=== PATIENT | female | born 1980 | race Caucasian/White ===

== ENCOUNTER 2018-01-22 08:53 | Emergency (ER) | payer OTHER, MEDICAID, SELFPAY ==
[2018-01-22 09:20] VITALS: BP 134/99; PULSE 93; RESP 18; TEMP 36.8; O2SAT 100
--- NOTE | 2018-01-22 10:13 | ED.ALLEREA ---
HPI - Allergic Reaction General Chief complaint: Allergic Reaction Stated complaint: redness on face, inflammation, lump on neck Time Seen by Provider: 01/22/18 08:56 Source: patient Mode of arrival: ambulatory Limitations: no limitations History of Present Illness HPI narrative: Patient is a 29-year-old female presenting with some rash around both eyes. She thought it was a burn from 2 weeks ago which she said actually cleared up completely. She is outside in the sun wearing glasses next day she noticed some red flaky swelling around both of her eyes. However after a cleared started coming back 2 days ago. She says it is very itchy she has been putting a and D ointment on there that the only thing that seems to help it. She starting to feel a some difficulty swallowing but does not feel like her tongue or lips are swollen or tingling. She has taken Benadryl twice already today no other rashes no prior allergic reactions. She denies any new medications of a size that she has been putting on her face no new soaps. She did go into her old house yesterday and cleaning out. Related Data Home Medications Medication Instructions Recorded Confirmed naproxen sodium [Aleve] 220 mg PO TID #0 10/06/16 01/22/18 Previous Rx's Medication Instructions Recorded norethindrone (contraceptive) 0.35 mg PO QDAY #1 pac 10/26/17 prednisone 50 mg PO DAILY #4 tab 01/22/18 Allergies Allergy/AdvReac Type Severity Reaction Status Date / Time No Known Drug Allergies Allergy Verified 01/22/18 10:30 Review of Systems Review of Systems GENERAL: Denies chills, fatigue, malaise, fever, sweats, travel HEENT: Denies sinus pain, ear pain, sore throat, difficulty swallowing, neck pain RESPIRATORY: Denies dyspnea, cough, wheezing, hemoptysis, sputum. CARDIOVASCULAR: Denies chest pain, palpitations, orthopnea, edema GASTROINTESTINAL: Denies nausea, vomiting, abdominal pain, diarrhea, constipation, melena. : Denies dysuria, frequency, incontinence, hematuria, urinary retention, flank pain. MUSCULOSKELETAL: Denies weakness, joint pain, or bony pain SKIN:rash around eyes only NEUROLOGIC: Denies weakness, dizziness, headache, numbness, change in speech, confusion PSYCHIATRIC: No concerning psychosocial issues. 12 point review of systems is negative except for those stated above and HPI PFSH Social History Smoking Status: Current every day smoker Exam Initial Vital Signs Initial Vital Signs: Vital Signs Temperature 98.3 F 01/22/18 09:20 Pulse Rate 93 H 01/22/18 09:20 Respiratory Rate 18 01/22/18 09:20 Blood Pressure 134/99 H 01/22/18 09:20 Pulse Oximetry 100 01/22/18 09:20 GENERAL: Well-appearing, well-nourished and in no acute distress. HEENT: Head atraumatic,EOMI, pupils reactive, conjunctivae are clear CARDIOVASCULAR: Regular rate and rhythm without murmurs, rubs or gallops. RESPIRATORY: Breath sounds equal bilaterally, no wheezes rales or rhonchi. ABDOMEN: Soft, nontender. Normoactive bowel sounds all 4 quadrants. No guarding or rebound. EXTREMITIES: Normal range of motion, no clubbing or edema. Neurovascularly intact NEUROLOGICAL: Alert and oriented x4.Normal gait and speech. SKIN: Dry erythematous scaly lesions on the bilateral periorbital areas. No other rashes no petechiae no urticaria Course Orders Ordered: Discontinued Medications Prednisone (Deltasone) 60 mg PO NOW ONE Stop: 01/22/18 10:19 Last Admin: 01/22/18 10:29 Dose: 60 mg Vital Signs - 8 hr 01/22/18 09:20 Temperature 98.3 F Pulse Rate 93 H Respiratory Rate 18 Blood Pressure 134/99 H Pulse Oximetry 100 Discharge Plan Departure Patient Disposition: Home, Self-Care Clinical Impression: Allergic reaction Discharge Date/Time: 01/22/18 10:57 Instructions: DI for Eye Allergic Reaction, DI for General Allergic Reactions Activity Restrictions/Additional Instructions: *You have been diagnosed with allergic reaction *What to do: You may require further allergy testing if this is recurring *Continue to take medications as directed At your request you're medications have been fax[facility] in [place] Prednisone once a day 4 more days, start tomorrow -[id number] allergy medicine Claritin or Radha take as directed -may try Aquaphor ointment around eyes *Follow up with your primary care provider in 2-3 days *Return to ER if you should have any new, worsening or concerning symptoms Prescriptions: New prednisone 50 mg tablet 50 mg PO DAILY Qty: 4 RF: 0 No Action naproxen sodium [Aleve] 220 MG capsule 220 mg PO TID Qty: 0 RF: 0 norethindrone (contraceptive) 0.35 MG tablet 0.35 mg PO QDAY Qty: 1 RF: 11
[2018-01-22] MEDS: predniSONE 20 MG TABLET 60 MG PO (10:29)
[2018-01-22 10:56] VITALS: BP 132/72; PULSE 70; RESP 12; O2SAT 100
== END 2018-01-22 10:57 | disposition home or self-care (01) ==
PROVIDERS: Emergency Provider Emergency Medicine
DX: T78.40XA Allergy, unspecified, initial encounter (principal)
CPT/HCPCS: 99282; 99283

== ENCOUNTER → 2018-02-15 17:16 | Outpatient (CLI) | payer OTHER, MEDICAID, SELFPAY ==
[2018-02-15 17:55] LABS: Add Manual Diff / Slide Review NO; Basophils Percent Auto 1.6 % (0-2); Eosinophils Percent Auto 4.9 % (2-4); Hematocrit 38.1 % (36-46); Lymphocytes Percent Auto 37.5 % (25-40); Mean Corpuscular Hemoglobin 32.7 PG (26-34); Mean Corpuscular Volume 96.2 fL (80-100); Monocytes Percent Auto 11.6 % (3-14); Neutrophils Absolute Auto 2200 /uL (3000-5900); Neutrophils Percent Auto 44.4 % (50-75); Platelet Count 274 X10^3/uL (150-400); Red Blood Cell Count 3.96 X10^6/uL (4.0-5.2); Red Cell Distribution Width 12.5 % (11.6-14.8); White Blood Cell Count 5.1 X10^3/uL (4.5-11.0)
[2018-02-15 18:15] LABS: Alanine Aminotransferase 38 IU/L (9-52); Albumin 4.2 g/dL (3.5-5.0); Albumin Globulin Ratio 1.6 (1.0-2.8); Alkaline Phosphatase 105 U/L (38-126); Aspartate Aminotransferase 37 IU/L (14-36); Bilirubin Total 0.4 mg/dL (0.2-1.3); Blood Urea Nitrogen 21 mg/dL (7-17); C-Reactive Protein Quant < 0.5 mg/dL (<1.0); Calcium 9.1 mg/dL (8.4-10.2); Carbon Dioxide 26 mmol/L (22-32); Chloride 104 mmol/L (98-107); Estimated Glomerular Filt Rate > 60.0 mL/min (>60); Globulin 2.7 g/dL (1.7-4.1); Glucose 111 mg/dL (70-100); HEMOLYSIS < 15 (0-50); Potassium 3.8 mmol/L (3.4-5.1); Sodium 139 mmol/L (137-145); Total Protein 6.9 g/dL (6.3-8.2)
[2018-02-15 18:54] LABS: HIV 1 and 2 Antibody NEGATIVE (NEGATIVE)
[2018-02-15 18:56] LABS: Erythrocyte Sedimentation Rate 6 MM/HR (0-20)
[2018-02-21 08:24] LABS: Rapid Plasma Reagin NON-REACTIVE
[2018-02-21 18:39] LABS: ANA Screen, IFA Negative (Negative)
== END ==
PROVIDERS: Visit Provider Family Medicine
DX: A46 Erysipelas (principal)
CPT/HCPCS: 36415; 80053; 85025; 85651; 86038; 86140; 86592; 86703

== ENCOUNTER 2018-09-20 15:42 | Emergency (ER) | payer OTHER, MEDICAID, SELFPAY ==
[2018-09-20 15:49] VITALS: BP 127/84; PULSE 98; RESP 22; TEMP 36.4; O2SAT 99
== END 2018-09-20 16:33 | disposition left against medical advice (07) ==
PROVIDERS: Emergency Provider Emergency Medicine
DX: R10.9 Unspecified abdominal pain (principal)
CPT/HCPCS: 99281

== ENCOUNTER 2019-09-28 11:34 | Emergency (ER) | payer OTHER, MEDICAID, SELFPAY ==
--- NOTE | 2019-09-28 11:44 | PC.NURSE ---
Pt visualized upon entry to ED. No acute distress. Called for formal triage and pt had left. Registration states they left to make important phone calls.
--- NOTE | 2019-09-30 08:31 | ED.ABDPAIN ---
HPI - Abdominal Pain General Stated Complaint: surgery on left hand yesterday,stitches popped History of Present Illness HPI narrative: The patient was not seen by myself or evaluated. The patient left without treatment. Related Data Home Medications Medication Instructions Recorded Confirmed naproxen sodium [Aleve] 220 mg PO TID #0 10/06/16 01/22/18 Previous Rx's Medication Instructions Recorded norethindrone (contraceptive) 0.35 mg PO QDAY #1 pac 10/26/17 prednisone 50 mg PO DAILY #4 tab 01/22/18 Allergies Allergy/AdvReac Type Severity Reaction Status Date / Time hydrocodone Allergy Verified 09/28/19 17:25 Penicillins Allergy Verified 09/28/19 17:25 Patient History Social History Smoking Status: Current every day smoker Smoking Status: Current every day smoker alcohol intake frequency: a few times a month Substance Use Type: marijuana Discharge Plan Departure Patient Disposition: Left Without Being Seen Clinical Impression: Patient left before triage assessment Discharge Date/Time: 09/28/19 11:46
== END 2019-09-28 11:46 | disposition left against medical advice (07) ==
PROVIDERS: Emergency Provider Emergency Medicine

== ENCOUNTER 2019-09-28 17:15 | Emergency (ER) | payer OTHER, MEDICAID, SELFPAY ==
[2019-09-28 17:25] VITALS: BP 118/76; PULSE 98; RESP 16; TEMP 36.6; O2SAT 98; BMI 17.6
--- NOTE | 2019-09-28 18:56 | ED.GENADULT ---
HPI - General Adult General Chief complaint: Extremity Injury, Upper Stated complaint: left hand surgery, thinks popped stitch Time Seen by Provider: 09/28/19 18:37 Source: patient Mode of arrival: Ambulatory Limitations: no limitations History of Present Illness HPI narrative: Patient is a 39-year-old female. Underwent a left finger surgery yesterday at another facility. She stated this is for a broken finger. She stated that she felt like her pain was getting worse and she felt that potentially she ?popped? a stitch in her finger. She tried to take the splint off on her own but then wrapped it up again with the Andres bandage. She did not take completely off. She also states that since her surgery she has gotten the splint is dirty and wet. She did not call her orthopedic provider prior to coming the emergency department. Related Data Home Medications Medication Instructions Recorded Confirmed naproxen sodium [Aleve] 220 mg PO TID #0 10/06/16 01/22/18 Previous Rx's Medication Instructions Recorded norethindrone (contraceptive) 0.35 mg PO QDAY #1 pac 10/26/17 prednisone 50 mg PO DAILY #4 tab 01/22/18 Allergies Allergy/AdvReac Type Severity Reaction Status Date / Time hydrocodone Allergy Verified 09/28/19 17:25 Penicillins Allergy Verified 09/28/19 17:25 Review of Systems Musculoskeletal Comments: Left hand/finger pain Neurologic Comments: No change in neurologic status left hand Hematologic/Lymphatic Hematologic/Lymphatic: Denies easy bleeding and Denies easy bruising Patient History Medical History ENCOUNTER FOR INSERTION OF INTRAUTERINE CONTRACEPTIVE DEVICE (Inactive) 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) Social History Smoking Status: Current every day smoker Smoking Status: Current every day smoker alcohol intake frequency: a few times a month Substance Use Type: marijuana Exam Initial Vital Signs Initial Vital Signs: Vital Signs Temperature 97.9 F 09/28/19 17:25 Pulse Rate 98 H 09/28/19 17:25 Respiratory Rate 16 09/28/19 17:25 Blood Pressure 118/76 09/28/19 17:25 Pulse Oximetry 98 09/28/19 17:25 Const General: cooperative, comfortable and well developed Limitations: altered mental status Cardio Pulses: radial pulses present on the left Skin Other: Patient with multiple stitches on the left middle finger consistent with her stated history. There is no surrounding erythema. All the stitches seem to be in place. There is no drainage. Neuro Sensory Exam: no sensory deficits noted Extrem Other: Stitches left middle finger with some tenderness palpation Psych Appearance: grossly normal and well kempt Procedures Orthopedic Splinting/Casting Injury #1: Side: left Upper Extremity Injury Location: hand Upper Extremity Immobilizer: volar splint and Andres wrap Post splinting neuro exam: intact Post splinting vascular exam: intact Placed by: Provider Course Vital Signs Vital signs: Vital Signs - 8 hr 09/28/19 17:25 Temperature 97.9 F Pulse Rate 98 H Respiratory Rate 16 Blood Pressure 118/76 Pulse Oximetry 98 Medical Decision Making MDM Narrative Medical decision making narrative: The splint upon arrival was placed very poorly. The Andres bandage was half way hanging off. It was soiled. I did take the splint all the way off. The incision underneath looks well. Does not appear to have any signs of infection. There are no issues with the stitches. I replaced the cast padding under the bandage. I then used the same splint that the patient came in with to support the finger. Was covered with a new Andres bandage. Patient was instructed to follow all of the postoperative instructions given to her by the operative surgeon. She was also instructed to call the surgeon on Tuesday for follow-up. She was given strict return precautions and follow-up instructions. She expressed understanding and agreement. Discharge Plan Departure Patient Disposition: Home Clinical Impression: Post-operative complication Qualifiers: Surgical complication system/body Area: [id number] Encounter type: initial encounter Discharge Date/Time: 09/28/19 19:22 Instructions: How to Use a Sling, How to Take Care of Your Splint Activity Restrictions/Additional Instructions: The splint needs to stay on anti needs to stay clean and stay dry. Continue all of the postoperative instructions given to you by the orthopedic doctor who did your surgery. Contact him on Tuesday morning for a follow-up. Return to the emergency department for any new or worsening symptoms Prescriptions: No Action naproxen sodium [Aleve] 220 MG capsule 220 mg PO TID Qty: 0 RF: 0 norethindrone (contraceptive) 0.35 MG tablet 0.35 mg PO QDAY Qty: 1 RF: 11 prednisone 50 mg tablet 50 mg PO DAILY Qty: 4 RF: 0
--- NOTE | 2019-09-28 19:21 | PC.NURSE ---
pt c/o left surgical site irritation, possibly popped a stitch.
== END 2019-09-28 19:22 | disposition home or self-care (01) ==
PROVIDERS: Emergency Provider Emergency Medicine
DX: T81.89XA Other complications of procedures, not elsewhere classified, initial encounter (principal)
CPT/HCPCS: 99281

== ENCOUNTER 2020-02-28 18:51 | Emergency (ER) | payer OTHER, MEDICAID, SELFPAY ==
[2020-02-28 19:01] VITALS: BP 126/92; PULSE 106; RESP 16; TEMP 36.6; O2SAT 100; BMI 16.8
--- NOTE | 2020-02-28 19:04 | PC.NURSE ---
During triage when asked if patient feels safe in home environment patient shook her head no. Patient unwilling to provide further information. When asked if patient would like help, patient declined. Patient affirms no thoughts of hurting self or others.
--- NOTE | 2020-02-28 23:00 | ED_ITS ---
HPI - Dental/Oral General Chief complaint: Dental/Oral Stated complaint: broke two teeth, thinks she has an infection Time Seen by Provider: 02/28/20 18:55 Source: patient Mode of arrival: Ambulatory Limitations: no limitations History of Present Illness HPI Narrative: 39-year-old female smoker presents with a chief complaint of some right lower dental pain with minimal lower jaw swelling or the course of the past few days. She denies any fever, chills nor nausea or vomiting. SHe is not dizzy, weak or lightheaded. She has no known exposure to persons known to have COVID MD Complaint: tooth pain Location: Tooth # Teeth map: 1. Duration: constant Severity: moderate Relieving factors: nothing Exacerbating factors: chewing Context: history of dental caries Treatment prior to arrival: none Related Data Home Medications Medication Instructions Recorded Confirmed naproxen sodium [Aleve] 220 mg PO TID #0 10/06/16 01/22/18 Previous Rx's Medication Instructions Recorded norethindrone (contraceptive) 0.35 mg PO QDAY #1 pac 10/26/17 prednisone 50 mg PO DAILY #4 tab 01/22/18 clindamycin HCl 300 mg PO Q8H 7 Days #21 cap 02/28/20 ibuprofen 600 mg PO TID PRN #10 tab 02/28/20 Allergies Allergy/AdvReac Type Severity Reaction Status Date / Time hydrocodone Allergy Verified 09/28/19 17:25 Penicillins Allergy Verified 09/28/19 17:25 Review of Systems Constitutional Constitutional: Denies chills, Denies fatigue, Denies fever(s), Denies frequent falls, Denies lethargy and Denies weakness Eyes Eyes: Denies change in vision, Denies eye discharge, Denies irritation and D enies loss of vision ENT Ears, Nose, Mouth, and Throat: Denies change in voice, Denies dizziness, Denies neck pain, Denies sore throat and Denies throat swelling Cardiovascular Cardiovascular: Denies chest pain, Denies irregular heart rhythm, Denies lightheadedness, Denies palpitations, Denies dyspnea, Denies dyspnea on exertion and Denies orthopnea Respiratory Respiratory: Denies cough, Denies dyspnea, Denies dyspnea on exertion and Denies wheezing Gastrointestinal Gastrointestinal: Denies abdominal pain, Denies change in bowel habits, Denies diarrhea, Denies nausea and Denies vomiting Musculoskeletal Musculoskeletal: Denies neck pain and Denies numbness Integumentary/Breasts Skin/Breast: Denies pruritus, Denies erythema, Denies rash and Denies wounds Neurologic Neurologic: Denies behavioral changes, Denies confusion, Denies dizziness, Denies frequent falls, Denies loss of vision, Denies numbness and Denies weaknes s Psychiatric Psychiatric: Denies anxiety, Denies behavioral changes, Denies confusion, Denies depression, Denies homicidal ideation and Denies suicidal ideation Endocrine Endocrine: Denies fatigue, Denies flushing and Denies palpitations Hematologic/Lymphatic Hematologic/Lymphatic: Denies easy bruising Allergic/Immunologic Allergic/Immunologic: Denies urticaria, Denies throat swelling and Denies wheezing Patient History Medical History (Updated 02/28/20 @ 19:05 by Tha Courtney DO) ENCOUNTER FOR INSERTION OF INTRAUTERINE CONTRACEPTIVE DEVICE (Inactive) 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 Extraoccular muscles are intact bilaterally. There is no subconjunctival hemorrhage or exudate. ENT: Poor dentition throughout. Mild Right lower jaw swelling CHEST: Lungs are clear to auscultation bilaterally and free of wheezes, rales, or rhonchi. Heart rate is regular rhythm, there are no murmurs, clicks, rubs, or gallops. There is no chest wall tenderness. ABD: Abdomen is soft and nontender. There is no guarding or rebound. Bowel sounds are normal in all 4 quadrants. There is no mass or organomegaly. EXT: Full painless ROM of all extremities with no loss of sensation or strength. SKIN: Warm, pink, and dry. No erythema or rash Initial Vital Signs Initial Vital Signs: Vital Signs Temperature 97.8 F 02/28/20 19: Pulse Rate 106 H 02/28/20 19:01 Respiratory Rate 16 02/28/20 19: Blood Pressure 126/92 H 02/28/20 19:01 Pulse Oximetry 100 02/28/20 19:01 Course Vital Signs Vital signs: Vital Signs - 8 hr 02/28/20 19:01 Temperature 97.8 F Pulse Rate 106 H Respiratory Rate 16 Blood Pressure 126/92 H Pulse Oximetry 100 Discharge Plan Departure Patient Disposition: Home Clinical Impression: Dental caries, Toothache, Dental abscess Discharge Date/Time: 02/28/20 19:39 Instructions: Tooth Abscess, DI for Dental Pain Activity Restrictions/Additional Instructions: *You have been diagnosed with [dental pain likely from early abscess] *What to do: *Take medications as directed: Pres[facility] transmitted to [facility] *Follow up with your primary care provider in 2-3 days, call for an appointment. Let them know you were seen in the Emergency Department and that we ask that you be seen in follow up *Return to ER if you should have any new, worsening or concerning symptoms Prescriptions: New clindamycin HCl 300 mg capsule 300 mg PO Q8H 7 Days Qty: 21 RF: 0 ibuprofen 600 mg tablet 600 mg PO TID PRN (Reason: pain) Qty: 10 RF: 0 No Action naproxen sodium [Aleve] 220 MG capsule 220 mg PO TID Qty: 0 RF: 0 norethindrone (contraceptive) 0.35 MG tablet 0.35 mg PO QDAY Qty: 1 RF: 11 prednisone 50 mg tablet 50 mg PO DAILY Qty: 4 RF: 0
== END 2020-02-28 19:39 | disposition home or self-care (01) ==
PROVIDERS: Emergency Provider Emergency Medicine
DX: K04.7 Periapical abscess without sinus (principal); K02.9 Dental caries, unspecified
CPT/HCPCS: 99281

== ENCOUNTER 2020-06-09 18:17 | Emergency (ER) | payer OTHER, MEDICAID, SELFPAY ==
[2020-06-09 18:29] VITALS: BP 149/96; PULSE 105; RESP 16; TEMP 36.8; O2SAT 100; BMI 19.1
--- NOTE | 2020-06-09 18:39 | ED_ITS ---
HPI - Dental/Oral General Chief complaint: Dental/Oral Stated complaint: TOOTH INFECTION RIGHT SIDE OF MOUTH Time Seen by Provider: 06/09/20 18:21 Source: patient Mode of arrival: Ambulatory Limitations: no limitations History of Present Illness HPI Narrative: 40F former smoker with history of dental troubles presents with the chief complaint of dental pain and swelling on the right upper side. She broke the tooth months ago and thinks she broke another piece off recently. She has had some mild facial swelling and thinks she's had some foul tasting drainage. She denies fever or chills. She denies any difficulty swallowing or recent injury. MD Complaint: tooth injury Teeth map: 1. Onset (ago): day(s) Duration: constant Severity: moderate Exacerbating factors: chewing Context: history of dental caries Associated symptoms: gum swelling Treatment prior to arrival: topical analgesic Related Data Previous Rx's Medication Instructions Recorded ibuprofen 600 mg PO TID PRN #10 tab 02/28/20 amoxicillin-pot clavulanate 1 tab PO BID #20 tab 06/09/20 [Augmentin] Allergies Allergy/AdvReac Type Severity Reaction Status Date / Time hydrocodone Allergy Verified 06/09/20 18:28 Penicillins Allergy Verified 06/09/20 18:28 Review of Systems Constitutional Constitutional: Denies chills, Denies fatigue, Denies fever(s), Denies frequent falls, Denies lethargy and Denies weakness Eyes Eyes: Denies change in vision, Denies eye discharge, Denies irritation and Denies loss of vision ENT Ears, Nose, Mouth, and Throat: Denies change in voice, Reports dental pain, Denies dizziness, Denies neck pain, Denies sore throat and Denies throat swelling Cardiovascular Cardiovascular: Denies chest pain, Denies irregular heart rhythm, Denies lightheadedness, Denies palpitations, Denies dyspnea, Denies dyspnea on exertion and Denies orthopnea Respiratory Respiratory: Denies cough, Denies dyspnea, Denies dyspnea on exertion and Denies wheezing Gastrointestinal Gastrointestinal: Denies abdominal pain, Denies change in bowel habits, Denies diarrhea, Denies nausea and Denies vomiting Musculoskeletal Musculoskeletal: Denies neck pain and Denies numbness Integumentary/Breasts Skin/Breast: Denies pruritus, Denies erythema, Denies rash and Denies wounds Neurologic Neurologic: Denies behavioral changes, Denies confusion, Denies dizziness, Denies frequent falls, Denies loss of vision, Denies numbness and Denies weakness Psychiatric Psychiatric: Denies anxiety, Denies behavioral changes, Denies confusion, Denies depression, Denies homicidal ideation and Denies suicidal ideation Endocrine Endocrine: Denies fatigue, Denies flushing and Denies palpitations Hematologic/Lymphatic Hematologic/Lymphatic: Denies easy bruising Allergic/Immunologic Allergic/Immunologic: Denies urticaria, Denies throat swelling and Denies wheezing Patient History Medical History ENCOUNTER FOR INSERTION OF INTRAUTERINE CONTRACEPTIVE DEVICE High risk HPV infection Psoriasis Social History Smoking Status: Former smoker Smoking Status: Former smoker tobacco type: vaping alcohol intake frequency: 3 or more drinks per day Substance Use Type: marijuana Exam Narrative Exam Narrative: GEN: AOx3 and in mild distress EYES: Pupils are equal, round, and reactive to light and accommodation. Extraoccular muscles are intact bilaterally. There is no subconjunctival hemorrhage or exudate. DENTAL: no significant swelling, poor dentition throughout. Mild edema adjacent to tooth #3, no fluctuance or obvious drainage. CHEST: Lungs are clear to auscultation bilaterally and free of wheezes, rales, or rhonchi. Heart rate is regular rhythm, there are no murmurs, clicks, rubs, or gallops. There is no chest wall tenderness. ABD: Abdomen is soft and nontender. There is no guarding or rebound. Bowel sounds are normal in all 4 quadrants. There is no mass or organomegaly. EXT: Full painless ROM of all extremities with no loss of sensation or strength. SKIN: Warm, pink, and dry. No erythema or rash Initial Vital Signs Initial Vital Signs: Vital Signs Temperature 98.2 F 06/09/20 18:29 Pulse Rate 105 H 06/09/20 18:29 Respiratory Rate 16 06/09/20 18:29 Blood Pressure 149/96 H 06/09/20 18:29 Pulse Oximetry 100 06/09/20 18:29 Course Vital Signs Vital signs: Vital Signs - 8 hr 06/09/20 18:29 06/09/20 19:14 Temperature 98.2 F Pulse Rate 105 H 61 Respiratory Rate 16 14 Blood Pressure 149/96 H 149/86 H Pulse Oximetry 100 99 Discharge Plan Departure Patient Disposition: Home Clinical Impression: Abscess, dental Instructions: Tooth Abscess Activity Restrictions/Additional Instructions: *You have been diagnosed with [dental pain with likely spontaneous draining abscess] *What to do: *Take medications as directed: Prescription electronically transmitted to [facility] * it is very important that you establish with a dentist as they are the only specialist that can provide definitive care *Return to ER if you should have any new, worsening or concerning symptoms, such as [significant facial swelling, trouble swallowing or other bothersome symptoms] Prescriptions: New amoxicillin-pot clavulanate [Augmentin] 875-125 mg tablet 1 tab PO BID Qty: 20 RF: 0 No Action ibuprofen 600 mg tablet 600 mg PO TID PRN (Reason: pain) Qty: 10 RF: 0 Referrals: Uday Willoughby MD [Primary Care Provider] -
[2020-06-09 19:14] VITALS: BP 149/86; PULSE 61; RESP 14; O2SAT 99
== END 2020-06-09 19:15 | disposition home or self-care (01) ==
PROVIDERS: Emergency Provider Emergency Medicine; PCP Student in an Organized Health Care Education/Training Program
DX: K04.7 Periapical abscess without sinus (principal)
CPT/HCPCS: 99281

== ENCOUNTER 2021-06-18 21:27 | Emergency (ER) | payer OTHER, MEDICAID, SELFPAY ==
[2021-06-18 21:45] VITALS: BP 167/112; PULSE 82; RESP 16; TEMP 36.7; O2SAT 99; BMI 17.7
--- NOTE | 2021-06-18 21:49 | ED_ITS ---
HPI - Fever General Chief Complaint: Fever Stated Complaint: covid exposure - not vaccinated Time Seen by Provider: 06/18/21 21:38 Source: patient Mode of arrival: Ambulatory Limitations: no limitations History of Present Illness HPI Narrative: 41-year-old female smoker without any chronic medical history presents with a chief complaint of various upper respiratory symptoms and subjective fever. She has had some runny nose and sneezing as well as sore throat and a dry hacking cough. She denies any chest pain or significant shortness of breath. She denies any abdominal pain, nausea, vomiting or diarrhea. She denies dysuria, frequency or urgency. She states that she was exposed to persons with known COVID at some point in the past 2 weeks and her symptoms started 2-3 days ago. Related Data Previous Rx's Medication Instructions Recorded ibuprofen 600 mg tablet 600 mg PO TID PRN #10 tab 02/28/20 amoxicillin 875 mg-potassium 1 tab PO BID #20 tab 06/09/20 clavulanate 125 mg tablet (Augmentin) Allergies Allergy/AdvReac Type Severity Reaction Status Date / Time hydrocodone Allergy Verified 06/09/20 18:28 Penicillins Allergy Verified 06/09/20 18:28 Review of Systems Review of Systems Narrative: GENERAL: See HPI HEENT: See HPI RESPIRATORY: See HPI CARDIOVASCULAR: Denies chest pain, palpitations, orthopnea, edema, GASTROINTESTINAL: See HPI : Denies dysuria, frequency, incontinence, hematuria, urinary retention. MUSCULOSKELETAL: denies weakness, joint pain, or bony pain SKIN: Denies rash, skin lesions, or other NEUROLOGIC: Denies weakness, headache, numbness, change in speech, confusion, seizures, incoordination. PSYCHIATRIC: No concerning psychosocial issues. 12 point review of systems is negative except for those stated above Patient History Medical History ENCOUNTER FOR INSERTION OF INTRAUTERINE CONTRACEPTIVE DEVICE High risk HPV infection Psoriasis Social History Smoking Status: Current some day smoker Smoking Status: Current some day smoker tobacco type: vaping alcohol intake frequency: 3 or more drinks per day Substance Use Type: marijuana Exam Narrative Exam Narrative: GENERAL: [41 year old patient appears stated age. Well-developed patient, in mild distress. HEAD: Atraumatic. Normocephalic. EYES: Pupils equal round and reactive. Extraocular motions intact. No scleral icterus. No injection or drainage. ENT: Nose without bleeding, purulent drainage. Throat without erythema, tonsillar hypertrophy or exudate. Airway patent. NECK: Trachea midline. Non tender CARDIOVASCULAR: Regular rate and rhythm without murmurs, gallops, or rubs. RESPIRATORY: Clear to auscultation. Breath sounds equal bilaterally. No wheezes, rales, or rhonchi. GASTROINTESTINAL: Abdomen soft, non-tender, nondistended. EXTREMITIES: No edema or joint tenderness. BACK: Nontender without deformity or crepitance. No flank tenderness. NEURO: AOx3. SKIN: No rash or erythema of visible areas Initial Vital Signs Initial Vital Signs: Vital Signs Temperature 98.1 F 06/18/21 21:45 Pulse Rate 82 06/18/21 21:45 Respiratory Rate 16 06/18/21 21:45 Blood Pressure 167/112 H 06/18/21 21:45 Pulse Oximetry 99 06/18/21 21:45 Course Orders Ordered: ED Orders 06/18/21 21:40 COVID19 -Nasal swab/Pre-Proc Stat Vital Signs Vital signs: Vital Signs - 8 hr 06/18/21 21:45 06/18/21 22:22 Temperature 98.1 F Pulse Rate 82 86 Respiratory Rate 16 Blood Pressure 167/112 H 172/107 H Pulse Oximetry 99 100 MDM - Fever Lab Data Labs: Lab Results 06/18/21 Range/Units 21:40 SARS-CoV-2 (PCR) Negative (Negative) Urine Dip Bedside Urine Glucose Negative Bedside Urine Bilirubin - Negative Bedside Urine Ketone - Negative Urine Specific [place] 1.030 Bedside Urine Occult Blood - Negative Bedside Urine pH 6.0 Bedside Urine Protein +/- 15 Bedside Urine Urobilinogen - Negative Bedside Urine Nitrite - Negative Bedside Urine Leukocytes - Negative Esterase Discharge Plan Departure Patient Disposition: Home Clinical Impression: Feared complaint without diagnosis Instructions: DI for Fever (Symptom) -- Adult, DI for COVID-19 (Suspected or Confirmed ) Activity Restrictions/Additional Instructions: *You have been diagnosed with [COVID exposure and concerning symptoms. Your COVID test today is negative, but as we discussed they can be falsely negative early on and I would ask that you follow the instructions below until you reach the 5-6 day patrick at which point you should probably be retested. *What to do: * per recommendations from the CDC and the [facility] Department of Health * stay home except to get medical care. Restrict activities outside your home, except for getting medical care. Do not go to work, school, or public areas. Avoid using public transportation, ride sharing, or taxis. * separate yourself from other people in your home. * call ahead before visiting your doctor * Wear a facemask * Cover your coughs and sneezes * Clean your hands often * Avoid sharing household items * Clean all high-touch services every day * Monitor your symptoms and seek prompt medical attention if your illness is worsening, particularly with difficulty in breathing. You may discontinue your isolation when: 1. You have been fever-free for at least 24 hours without the use of fever reducing medication, AND 2. Your symptoms are getting better 3. At least 10 days have passed since symptoms first appeared Individuals with laboratory confirmed COVID-19 who have not had any symptoms may discontinue home isolation when at least 10 days have passed since the date of their first COVID-19 diagnostic test and have had no subsequent illness Prescriptions: No Action ibuprofen 600 mg tablet 600 mg PO TID PRN (Reason: pain) Qty: 10 0RF amoxicillin-pot clavulanate [Augmentin] 875-125 mg tablet 1 tab PO BID Qty: 20 0RF Referrals: Uday Willoughby MD [Primary Care Provider] -
[2021-06-18 22:07] LABS: COVID19 -Nasal RAPID Negative (Negative)
[2021-06-18 22:22] VITALS: BP 172/107; PULSE 86; O2SAT 100
== END 2021-06-18 22:25 | disposition home or self-care (01) ==
PROVIDERS: Emergency Provider Emergency Medicine; PCP Student in an Organized Health Care Education/Training Program
DX: R50.9 Fever, unspecified (principal); R09.89 Other specified symptoms and signs involving the circulatory and respiratory systems; R06.7 Sneezing; J02.9 Acute pharyngitis, unspecified; R05.9 Cough, unspecified; F17.290 Nicotine dependence, other tobacco product, uncomplicated; Z20.822 Contact with and (suspected) exposure to COVID-19
CPT/HCPCS: 81003; 87635; 99282; C9803

== ENCOUNTER → 2021-11-16 15:35 | Outpatient (CLI) | payer OTHER, MEDICAID, SELFPAY ==
--- NOTE | 2021-11-16 15:36 | DI.RAD.S_ITS ---
PROCEDURE: XR LUMBAR SPINE 2-3V INDICATIONS: lordosis; left leg sensory and motor deficit TECHNIQUE: 3 views of the lumbar spine were acquired. COMPARISON: , CT, CT KUB, 12/19/2020, 20:08. FINDINGS: Bones: 5 [id number]-gbfnwgo vertebrae are present. Minimal scoliosis. Exaggerated lumbar spine lordosis. No vertebral body compression fractures. There is approximately 0.6 cm anterolisthesis of L3 on L4. No suspicious bony lesions. Soft tissues: Overlying bowel gas pattern is normal. Liver appears prominent. No suspicious soft tissue calcifications. IMPRESSION: 1. Exaggerated lumbar spine lordosis. Minimal scoliosis. Grade 1 anterolisthesis of L3 on L4. 2. Liver appears prominent. Dictated by: Mak Villa M.D. on 11/16/2021 at 17:31 Approved by: Mak Villa M.D. on 11/16/2021 at 17:35
--- NOTE | 2021-11-16 15:36 | DI.RAD.S_ITS ---
PROCEDURE: XR HIP W PEL IF DONE LT 2V INDICATIONS: lordosis; left leg sensory and motor deficit TECHNIQUE: AP pelvis with lateral view(s) of the left hip(s). COMPARISON: None. FINDINGS: Bones: No fractures or dislocations. Pelvic ring appears intact. No suspicious bony lesions. Minimal narrowing of the hip joints bilaterally. Soft tissues: The visualized bowel gas pattern is normal. No suspicious soft tissue calcifications. IMPRESSION: No visualized acute fracture or dislocation. However, if clinical concern and/or pain persist, short interval imaging followup in 7-10 days is recommended, as occult injury cannot be definitively excluded. Dictated by: Telma Sotomayor M.D. on 11/16/2021 at 16:57 Approved by: Telma Sotmoayor M.D. on 11/16/2021 at 16:57
== END ==
PROVIDERS: PCP Student in an Organized Health Care Education/Training Program; Referring Provider Student in an Organized Health Care Education/Training Program; Visit Provider Student in an Organized Health Care Education/Training Program
DX: M40.56 Lordosis, unspecified, lumbar region (principal); M43.16 Spondylolisthesis, lumbar region; R29.898 Other symptoms and signs involving the musculoskeletal system
CPT/HCPCS: 72100; 73502

== ENCOUNTER 2021-11-17 16:15 | Observation (INO) | payer OTHER, MEDICAID, SELFPAY ==
[2021-11-17] VITALS (25 sets, daily range): BP systolic 145–193; BP diastolic 93–121; PULSE 72–104; RESP 12–18; TEMP 36.3–36.6; O2SAT 99–100; BMI 17.8
--- NOTE | 2021-11-17 16:21 | DI.RAD.S_ITS ---
PROCEDURE: XR CHEST 1V INDICATIONS: chest pain TECHNIQUE: One view of the chest was acquired. COMPARISON: None. FINDINGS: Surgical changes and devices: None. Lungs and pleura: Lungs are clear. No pleural effusions or pneumothorax. Mediastinum: Mediastinal contours appear normal. Heart size is normal. Bones and chest wall: No suspicious bony lesions. Overlying soft tissues appear unremarkable. IMPRESSION: No acute pulmonary process. Dictated by: Telma Sotomayor M.D. on 11/17/2021 at 16:15 Approved by: Telma Sotomayor M.D. on 11/17/2021 at 16:15
--- NOTE | 2021-11-17 16:32 | DI.CT.S_ITS ---
PROCEDURE: CT STROKE INDICATIONS: Left-sided numbness TECHNIQUE: Noncontrast 4.5 mm thick angled axial sections acquired from the foramen magnum to the vertex, with coronal reformats. For radiation dose reduction, the following was used: automated exposure control, adjustment of mA and/or kV according to patient size. COMPARISON: None. FINDINGS: Image quality: Excellent. CSF spaces: Basal cisterns are patent. No extra-axial fluid collections. Ventricles are normal in size and shape. Brain: No midline shift. No intracranial masses or hemorrhage. Esparza-white matter interface is normal. Skull and face: Calvarium and visualized facial bones are intact, without suspicious lesions. Sinuses: Visualized sinuses and mastoids are clear. IMPRESSION: 1. No acute intracranial process. The above findings were discussed with Dr. Louis Leyva on 10/06/2021 at 4 1559 hours AKST. This study fulfills neurological imaging criteria for inclusion or exclusion of acute stroke therapies based on available published neurological imaging guidelines. Dictated by: Telma Sotomayor M.D. on 11/17/2021 at 15:57 Approved by: Telma Sotomayor M.D. on 11/17/2021 at 15:59
--- NOTE | 2021-11-17 16:32 | DI.CT.S_ITS ---
PROCEDURE: CT ANGIO HEAD AND NECK INDICATIONS: Left-sided numbness TECHNIQUE: Noncontrast images were performed earlier in the day and not repeated. After the administration of intravenous contrast, 1 mm thick sections acquired from the aortic arch through the [place] of [place]. Post-contrast 4.5 mm thick sections then re-acquired from the foramen magnum to the vertex. 3-dimensional [id number]-[id number] (MIP) and/or volume rendering reformats were acquired of the central intracranial vasculature and neck separately. For radiation dose reduction, the following was used: automated exposure control, adjustment of mA and/or kV according to patient size. COMPARISON: [facility], CT, CT STROKE, 11/17/2021, 16:39. FINDINGS: Image quality: Excellent. BRAIN: CSF spaces: Ventricles are normal in size and shape. Basal cisterns are patent. No extra-axial fluid collections. Brain: No midline shift. No intracranial bleeds or masses. Esparza-white matter interface appears intact. Skull and face: Calvarium and facial bones appear intact, without suspicious lesions. Orbits appear normal. Sinuses: Sinuses and mastoids are clear. 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 The ostiomeatal complexes are constitutionally narrowed, with bilateral Malissa cells present. HEAD CT ANGIOGRAPHY: Anterior circulation: Intracranial internal carotid arteries are normal in size and flow. The flow within the paired anterior cerebral arteries is normal and symmetric. The flow within the middle cerebral arteries is normal and symmetric. The anterior communicating artery is seen. No aneurysms are seen. Posterior circulation: Visualized portions of the vertebral arteries demonstrate normal caliber, and join to form a normal appearing basilar artery. Flow within the posterior cerebral arteries is normal and symmetric. No aneurysms are seen. NECK CT ANGIOGRAPHY: Carotid system: The great vessels demonstrate a conventional anatomy as they arise from the aortic arch. The origins of the common carotid arteries appear patent. The common carotid arteries demonstrate normal caliber and courses. The bifurcation regions are both widely patent. The internal carotid arteries demonstrate normal calibers and courses. Posterior circulation: The origins of the vertebral arteries both appear widely patent. The more superior extracranial portions of both vertebral arteries also demonstrate normal courses and calibers. They join to form a normal appearing basilar artery. Soft tissues: Visualized neck soft tissues demonstrate no suspicious abnormalities. Bones: No suspicious bony lesions. Visualized cervical spine appears normally aligned. IMPRESSION: No hemodynamically significant stenosis can be seen within the intracranial circulation or within the neck. No findings of dissection are seen. If there is strong clinical suspicion for an acute stroke in this patient with this given history, please consider a brain MRI for further evaluation, as it is more sensitive (assuming that there is no contraindication to MRI). Any quantitative measurements of stenosis were performed using NASCET criteria. Dictated by: Ad Lim M.D. on 11/17/2021 at 16:09 Approved by: Ad Lim M.D. on 11/17/2021 at 16:12
--- NOTE | 2021-11-17 16:42 | ED_ITS ---
HPI - Chest Pain General Chief Complaint: Chest Pain Stated Complaint: thinks heart attack, has HBP Time Seen by Provider: 11/17/21 16:31 Source: patient Mode of arrival: Ambulatory Limitations: no limitations History of Present Illness HPI narrative: Patient here for multiple complaints including chest pain high blood pressure as well as left-sided numbness to the arm and leg. Patient was seen by family physician Dr. Uday bowen yesterday for left leg weakness. Today she complains of chest pain as well. Blood pressure noted on arrival. During course of triage showing patient started complaining of left discomfort to the arm and leg. No slurred speech or facial droop. Code stroke called. Fast exam neg ative. Denies does not want a test Related Data Allergies Allergy/AdvReac Type Severity Reaction Status Date / Time hydrocodone Allergy Verified 11/16/21 14:53 Penicillins Allergy Verified 11/16/21 14:53 Review of Systems Review of Systems Narrative: GENERAL: Denies chills, fatigue, malaise, fever, sweats. HEENT: Denies sinus pain, ear pain, sore throat RESPIRATORY: Denies dyspnea, cough CARDIOVASCULAR: Positive for chest pain, negative for palpitations GASTROINTESTINAL: Denies nausea, vomiting, abdominal pain : Denies dysuria, frequency, hematuria MUSCULOSKELETAL: denies muscle or bony pain SKIN: Denies rash, skin lesions NEUROLOGIC: Denies weakness, positive for numbness ROS Unobtainable: All systems reviewed & are unremarkable except as noted in HPI and below Patient History Medical History (Updated 11/18/21 @ 13:57 by Uday Willoughby MD) ENCOUNTER FOR INSERTION OF INTRAUTERINE CONTRACEPTIVE DEVICE High risk HPV infection Methamphetamine use Psoriasis Surgical History (Updated 11/18/21 @ 01:26 by AMY Jiménez) History of cervical LEEP biopsy affecting care of mother, antepartum Family History (Updated 11/18/21 @ 01:25 by AMY Jiménez) Mother Diabetes mellitus Hyperkalemia Father Medical history unknown Grandfather Myocardial infarction Social History household members: significant other Smoking Status: Current some day smoker Smoking Status: Current some day smoker tobacco type: vaping alcohol intake frequency: 0-2 drinks per day Substance Use Type: marijuana Exam Narrative Exam Narrative: GENERAL: in no distress, not toxic not dyspneic HEAD: Normocephalic. EYES: Pupils equal round No scleral icterus. ENT: Mucous membranes moist. NECK: Trachea midline. CARDIOVASCULAR: Regular rate and rhythm without murmurs RESPIRATORY: Clear to auscultation. Breath sounds equal bilaterally. No wheezes, rales, or rhonchi. GASTROINTESTINAL: Abdomen soft, non-tender EXTREMITIES: No gross deformities. BACK: No flank tenderness. NEURO: AOx4. Clear speech no facial droop. Light touch intact to bilateral face hands and ankles. Strong equal ux designer bilaterally and ankle flexion hip flexion and knee flexion. Strong bilateral patellar reflexes. No pronator dri ft. SKIN: Warm and dry PSYCH: Not anxious, is cooperative Initial Vital Signs Initial Vital Signs: Vital Signs Temperature 97.4 F L 11/17/21 16:20 Blood Pressure 193/121 H 11/17/21 16:20 Scores NIH Stroke Scale Ask month/age: Answers both questions correctly. Best gaze horizontal: Normal Facial palsy: Normal symetrical movement Right arm drift: No drift for full 10 sec Left leg drift: No drift for full 5 sec Right leg drift: No drift for full 5 sec Limb ataxia: Absent Sensory on face/arms/legs: Normal, no sensory loss Best language: No aphasia, normal Dysarthria: Normal Extinction or inattention: No abnormality Course Course Course Narrative: No new issues during course of stay Orders Ordered: Discontinued Medications Acetaminophen (Acetaminophen 325 Mg Tablet) 650 mg PO Q6HR PRN PRN Reason: Fever/Mild Pain (1-3) Aspirin (Aspirin Ec 81 Mg Tablet) 81 mg PO DAILY [facility] Last Admin: 11/18/21 09:04 Dose: 81 mg Documented By: BR Clonidine HCl (Clonidine 0.1 Mg Tablet) 0.2 mg PO NOW ONE Stop: 11/17/21 17:58 Last Admin: 11/17/21 18:11 Dose: 0.1 mg Documented By: SB Enalaprilat (Enalaprilat 2.5 Mg/ 2 Ml Vial) 0.625 mg IV PRN PRN PRN Reason: Hypertensive Emergency Enalaprilat (Enalaprilat 2.5 Mg/ 2 Ml Vial) 0.625 mg IV Q6H PRN PRN Reason: Hypertensive Emergency Last Admin: 11/18/21 01:15 Dose: 0.625 mg Documented By: AGW Enoxaparin Sodium (Enoxaparin 40 Mg/0.4 Ml Syringe) 40 mg SUBCUT DAILY [facility] Last Admin: 11/18/21 09:04 Dose: 40 mg Documented By: SAIMA Sodium Chloride (Normal Saline 0.9%) 1,000 mls @ 100 mls/hr IV CONT [facility] Last Admin: 11/17/21 23:34 Dose: 100 mls/hr Documented By: GABINO Losartan Potassium (Losartan 25 Mg Tablet) 25 mg PO BID [facility] Last Admin: 11/18/21 09:05 Dose: Not Given Documented By: Admin: 11/17/21 23:34 Dose: 25 mg Documented By: VH Morphine Sulfate (Morphine 2 Mg/Ml Inj) 2 mg IV Q5MIN PRN PRN Reason: Chest Pain Naloxone HCl (Naloxone 0.4 Mg/Ml Vial) 0.2 mg IV Q2MIN PRN PRN Reason: Opiate Reversal Nitroglycerin (Nitroglycerin 0.4 Mg Sl Tab) 0.4 mg SL [id number] PRN PRN Reason: Chest Pain Ondansetron HCl (Ondansetron 4 Mg/2 Ml Inj) 4 mg IV Q6HR PRN PRN Reason: Nausea And Vomiting Reevaluation(s) Reevaluation #1: Updated patient results. At this time no chest pain. Agrees for admission for blood pressure control TIA workup as well as chest pain workup. Time: 17:57 Consultations Consultation #1: Spoke with radiologist, CT scan without contrast no acute process 1658 Consultation #2: Spoke with the tele stroke, neurologist, Dr. Riley, she will rib bodily interview and examine patient 1717 At 1738, Dr. When called back, she has seen patient. At this time no tPA. Patient does not want tPA. Patient has very low score of 1. There is component of spinal radiculopathy that contributes to these patients complaints. Also hypertensive urgency. At this time would benefit for admission echocardiogram MRI and blood pressure control. Consultation #3: Spoke with hospitalist, Dr. Waldron, agrees for admit for TIA evaluation/hypertensive urgency/chest pain. Reviewed my discussion with him regarding tele stroke neurologist Dr. Riley, no tPA at this time Time: 18:34 Vital Signs Vital signs: Vital Signs - 8 hr 11/17/21 16:20 Temperature 97.4 F L Blood Pressure 193/121 H MDM - Chest Pain Differential Diagnosis Differential diagnosis: Likely stable angina, unstable angina pectoris, atypical chest pain, st elevation myocardial infarction and other (Hypertensive urgency/atypical chest pain/TIA/) Lab Data Result diagrams: 11/18/21 05:12 11/18/21 05:12 Labs: Lab Results 11/17/21 11/17/21 11/17/21 Range/Units 16:34 16:34 16:34 WBC 5.9 (4.5-11.0) X10^3/uL RBC 4.05 (4.0-5.2) X10^6/uL Hgb 12.7 (12.0-16.0) g/dL Hct 37.9 (36-46) % MCV 93.5 (80-100) fL MCH 31.4 (26-34) PG MCHC 33.6 (30-36) % RDW 12.8 (11.6-14.8) % Plt Count 257 (150-400) X10^3/uL Neut % (Auto) 68.3 (50-75) % Lymph % (Auto) 21.7 L (25-40) % [place] % (Auto) 7.6 (3-14) % Eos % (Auto) 1.5 L (2-4) % Baso % (Auto) 0.9 (0-2) % Neut # (Auto) 4100 (9304-6340) /uL Lymph # (Auto) 1300 (0605-4838) /uL [place] # (Auto) 500 (0-900) /uL Eos # (Auto) 100 (0-450) /uL Baso # (Auto) 100 (0-100) /uL Sodium 139 (137-145) mmol/L Potassium 3.3 L (3.4-5.1) mmol/L Chloride 104 (98-107) mmol/L Carbon Dioxide 24 (22-32) mmol/L BUN 19 H (7-17) mg/dL Creatinine 1.18 H (0.52-1.04) mg/dL Estimated GFR 59 L (>60) mL/min BUN/Creatinine Ratio 16.1 (6-22) Glucose 97 (70-100) mg/dL Hemoglobin A1c 5.4 (4.0-6.0) % Calcium 8.8 (8.4-10.2) mg/dL Magnesium 1.8 (1.6-2.3) mg/dL Total Bilirubin 0.5 (0.2-1.3) mg/dL AST 36 (14-36) IU/L ALT 28 (<35) IU/L Alkaline Phosphatase 105 (38-126) U/L Total Creatine Kinase 128 (30-135) U/L CK-MB (CK-2) 2.50 H (<2.37) ng/mL CK-MB (CK-2) Rel Index 2.0 (1.5-5.0) % Troponin I < 0.012 (0.01-0.034) ng/mL Total Protein 7.8 (6.3-8.2) g/dL Albumin 4.5 (3.5-5.0) g/dL Globulin 3.3 (1.7-4.1) g/dL Albumin/Globulin Ratio 1.4 (1.0-2.8) Lipase 68 (23-300) U/L SARS-CoV-2 (PCR) (Negative) 11/17/21 Range/Units 18:24 WBC (4.5-11.0) X10^3/uL RBC (4.0-5.2) X10^6/uL Hgb (12.0-16.0) g/dL Hct (36-46) % MCV (80-100) fL MCH (26-34) PG MCHC (30-36) % RDW (11.6-14.8) % Plt Count (150-400) X10^3/uL Neut % (Auto) (50-75) % Lymph % (Auto) (25-40) % [place] % (Auto) (3-14) % Eos % (Auto) (2-4) % Baso % (Auto) (0-2) % Neut # (Auto) (4973-4391) /uL Lymph # (Auto) (0523-9419) /uL [place] # (Auto) (0-900) /uL Eos # (Auto) (0-450) /uL Baso # (Auto) (0-100) /uL Sodium (137-145) mmol/L Potassium (3.4-5.1) mmol/L Chloride (98-107) mmol/L Carbon Dioxide (22-32) mmol/L BUN (7-17) mg/dL Creatinine (0.52-1.04) mg/dL Estimated GFR (>60) mL/min BUN/Creatinine Ratio (6-22) Glucose (70-100) mg/dL Hemoglobin A1c (4.0-6.0) % Calcium (8.4-10.2) mg/dL Magnesium (1.6-2.3) mg/dL Total Bilirubin (0.2-1.3) mg/dL AST (14-36) IU/L ALT (<35) IU/L Alkaline Phosphatase (38-126) U/L Total Creatine Kinase (30-135) U/L CK-MB (CK-2) (<2.37) ng/mL CK-MB (CK-2) Rel Index (1.5-5.0) % Troponin I (0.01-0.034) ng/mL Total Protein (6.3-8.2) g/dL Albumin (3.5-5.0) g/dL Globulin (1.7-4.1) g/dL Albumin/Globulin Ratio (1.0-2.8) Lipase (23-300) U/L SARS-CoV-2 (PCR) Negative (Negative) Point of Care Testing Glucose POC [address] scan - head: Radiologist's Impression: [address] [address] [address] Scan Report Signed Patient: Nahed Toribio MR#: [id number] : 1980 Acct:[id number] Age/Sex: 41 / F Date of Service: 11/17/21 Loc: ED Accession Number: [id number] ?? Procedure: CT Stroke Ordering Provider: Louis Leyva MD PROCEDURE:? CT STROKE ? INDICATIONS:? Left-sided numbness ? TECHNIQUE:? Noncontrast 4.5 mm thick angled axial sections acquired from the foramen magnum to the vertex, with coronal reformats.? For radiation dose reduction, the following was used:? automated exposure control, adjustment of mA and/or kV according to patient size.? ? COMPARISON:? None. ? FINDINGS:? Image quality:? Excellent.? ? CSF spaces:? Basal cisterns are patent.? No extra-axial fluid collections.? Ventricles are normal in size and shape.? ? Brain:? No midline shift.? No intracranial masses or hemorrhage.? Esparza-white matter interface is normal.? ? Skull and face:? Calvarium and visualized facial bones are intact, without suspicious lesions.? ? Sinuses:? Visualized sinuses and mastoids are clear.? ? IMPRESSION:? ? 1. No acute intracranial process. ? ? ? The above findings were discussed with Dr. Louis Leyva on 10/06/2021 at 4 1559 hours AKST. ? This study fulfills neurological imaging criteria for inclusion or exclusion of acute stroke therapies based on available published neurological imaging guidelines.? ? ? Dictated by: Telma Sotomayor M.D. on 11/17/2021 at 15:57 ? ? Approved by: Telma Sotomayor M.D. on 11/17/2021 at 15:59 ? CTA - brain/neck: Radiologist's Impression: [address] [address] [address] Scan Report Signed Patient: Nahed Toribio MR#: [id number] : 1980 Acct:[id number] Age/Sex: 41 / F Date of Service: 11/17/21 Loc: ED Accession Number: [id number] ?? Procedure: CT angio head and neck Ordering Provider: Louis Leyva MD PROCEDURE:? CT ANGIO HEAD AND NECK ? INDICATIONS:? Left-sided numbness ? TECHNIQUE:? Noncontrast images were performed earlier in the day and not repeated.? ? After the administration of intravenous contrast, 1 mm thick sections acquired from the aortic arch through the [place] of [place].? Post-contrast 4.5 mm thick sections then re- acquired from the foramen magnum to the vertex.? 3-dimensional quqiask-ogbmjuycf-tidiqjbqsi (MIP) and/or volume rendering reformats were acquired of the central intracranial vasculature and neck separately. For radiation dose reduction, the following was used:? automated exposure control, adjustment of mA and/or kV according to patient size.? ? COMPARISON:? [facility], CT, CT STROKE, 11/17/2021, 16:39. ? FINDINGS:? Image quality:? Excellent.? ? BRAIN:? CSF spaces:? Ventricles are normal in size and shape.? Basal cisterns are pa tent.? No extra-axial fluid collections.? ? Brain:? No midline shift.? No intracranial bleeds or masses.? Esparza-white matter interface appears intact.? ? Skull and face:? Calvarium and facial bones appear intact, without suspicious lesions.? Orbits appear normal.? ? Sinuses:? Sinuses and mastoids are clear.? Incidental note is made of a right- sided julian bullosa, with mild leftward nasal septal deviation.? The ostiomeatal complexes are constitutionally narrowed, with bilateral Malissa cells present. ? HEAD CT ANGIOGRAPHY:? Anterior circulation:? Intracranial internal carotid arteries are normal in size and flow.? The flow within the paired anterior cerebral arteries is normal and symmetric.? The flow within the middle cerebral arteries is normal and symmetric.? The anterior communicating artery is seen.? No aneurysms are seen.? ? Posterior circulation:? Visualized portions of the vertebral arteries demonstrate normal caliber, and join to form a normal appearing basilar artery.? Flow within the posterior cerebral arteries is normal and symmetric.? No aneurysms are seen.? ? NECK CT ANGIOGRAPHY:? Carotid system:? The great vessels demonstrate a conventional anatomy as they arise from the aortic arch.? The origins of the common carotid arteries appear patent.? The common carotid arteries demonstrate normal caliber and courses.? The bifurcation regions are both widely patent.? The internal carotid arteries demonstrate normal calibers and courses.? ? Posterior circulation:? The origins of the vertebral arteries both appear widely patent.? The more superior extracranial portions of both vertebral arteries also demonstrate normal courses and calibers.? They join to form a normal appearing basilar artery.? ? Soft tissues:? Visualized neck soft tissues demonstrate no suspicious ab normalities.? ? Bones:? No suspicious bony lesions.? Visualized cervical spine appears normally aligned.? IMPRESSION:? No hemodynamically significant stenosis can be seen within the intracranial circulation or within the neck. ? No findings of dissection are seen. ? ? If there is strong clinical suspicion for an acute stroke in this patient with this given history, please consider a brain MRI for further evaluation, as it is more sensitive (assuming that there is no contraindication to MRI). ? Any quantitative measurements of stenosis were performed using NASCET criteria.? ? ? Dictated by: Ad Lim M.D. on 11/17/2021 at 16:09 ? ? Approved by: Ad Lim M.D. on 11/17/2021 at 16:12 ? Chest x-ray: Radiologist's Impression: [address] [address] XRay Report Signed Patient: Nahed Toribio MR#: [id number] : 1980 Acct:[id number] Age/Sex: 41 / F Date of Service: 11/17/21 Loc: ED Accession Number: [id number] ?? Procedure: XR chest 1V Ordering Provider: Louis Leyva MD PROCEDURE:? XR CHEST 1V ? INDICATIONS:? chest pain ? TECHNIQUE:? One view of the chest was acquired.? ? COMPARISON:? None. ? FINDINGS:? ? Surgical changes and devices:? None.? ? Lungs and pleura:? Lungs are clear.? No pleural effusions or pneumothorax.? ? Mediastinum:? Mediastinal contours appear normal.? Heart size is normal.? ? Bones and chest wall:? No suspicious bony lesions.? Overlying soft tissues appear unremarkable.? ? IMPRESSION:? No acute pulmonary process. ? Dictated by: Telma Sotomayor M.D. on 11/17/2021 at 16:15 ? ? Approved by: Telma Sotomayor M.D. on 11/17/2021 at 16:15 ? MDM Narrative Medical decision making narrative: Appropriate for admission for hypertensive urgency as well as TIA/chest pain workup. Patient agrees for admit. Discharge Plan Departure Patient Disposition: Admitted as Observation Clinical Impression: Hypertensive urgency, Paresthesia Admit Date/Time: 11/17/21 19:17 Admit Provider: Mau Waldron
[2021-11-17 16:51] LABS: Add Manual Diff / Slide Review NO; Basophils Absolute Auto 100 /uL (0-100); Basophils Percent Auto 0.9 % (0-2); Eosinophils Absolute Auto 100 /uL (0-450); Eosinophils Percent Auto 1.5 % (2-4); Hematocrit 37.9 % (36-46); Hemoglobin 12.7 g/dL (12.0-16.0); Lymphocytes Absolute Auto 1300 /uL (1100-4500); Lymphocytes Percent Auto 21.7 % (25-40); Mean Corpuscular HGB Conc 33.6 % (30-36); Mean Corpuscular Hemoglobin 31.4 PG (26-34); Mean Corpuscular Volume 93.5 fL (80-100); Monocytes Absolute Auto 500 /uL (0-900); Monocytes Percent Auto 7.6 % (3-14); Neutrophils Absolute Auto 4100 /uL (1500-7000); Neutrophils Percent Auto 68.3 % (50-75); Platelet Count 257 X10^3/uL (150-400); Red Blood Cell Count 4.05 X10^6/uL (4.0-5.2); Red Cell Distribution Width 12.8 % (11.6-14.8); White Blood Cell Count 5.9 X10^3/uL (4.5-11.0)
[2021-11-17 17:07] LABS: Alanine Aminotransferase 28 IU/L (<35); Albumin 4.5 g/dL (3.5-5.0); Albumin Globulin Ratio 1.4 (1.0-2.8); Alkaline Phosphatase 105 U/L (38-126); Aspartate Aminotransferase 36 IU/L (14-36); BUN Creatinine Ratio 16.1 (6-22); Bilirubin Total 0.5 mg/dL (0.2-1.3); Blood Urea Nitrogen 19 mg/dL (7-17); Calcium 8.8 mg/dL (8.4-10.2); Carbon Dioxide 24 mmol/L (22-32); Chloride 104 mmol/L (98-107); Creatine Kinase 128 U/L (30-135); Estimated Glomerular Filt Rate 59 mL/min (>60); Globulin 3.3 g/dL (1.7-4.1); Glucose 97 mg/dL (70-100); HEMOLYSIS < 15 (0-50); Lipase 68 U/L (23-300); Magnesium 1.8 mg/dL (1.6-2.3); Potassium 3.3 mmol/L (3.4-5.1); Sodium 139 mmol/L (137-145); Total Protein 7.8 g/dL (6.3-8.2)
[2021-11-17 17:18] LABS: Troponin I < 0.012 ng/mL (0.01-0.034)
--- NOTE | 2021-11-17 18:10 | PC.NURSE ---
Pt reports saw PCP yesterday for left leg giving out and weakness. Reports today while out with dogs noticed left side felt tingly and different. Baseline numbness/sensation changes in left leg x 1-2 years. Stroke equip at bedside.
[2021-11-17] MEDS: cloNIDine 0.1 MG TABLET 0.2 MG PO (18:11)
[2021-11-17 18:55] LABS: COVID19 -Nasal RAPID Negative (Negative)
[2021-11-17 21:35] LABS: Hemoglobin A1C% w Est Avg Glu 5.4 % (4.0-6.0)
--- NOTE | 2021-11-17 21:40 | PC.NURSE ---
Pt sees BP 145/93, states That is better than it was yesterday. I would like to go home. Provider Stefan notified and came to see pt in ED and reports that pt has decided to stay.
[2021-11-17 22:55] LABS: Troponin I < 0.012 ng/mL (0.01-0.034)
--- NOTE | 2021-11-17 22:55 | P.HP_ITS ---
History of Present Illness History of Present Illness Date Patient Seen: 11/17/21 Time Patient Seen: 21:45 Chief complaint: Hypertensive urgency, left sided weakness Narrative: Nahed Toribio is a 41 y.o. female with a history of scoliosis, presented with chest tightness and shortness of breath. She was administered clonidine in the ED and when her bp dropped to the 140s, she told the ED staff she wanted to leave against medical advice. After some conversation with her, she agreed to stay. I went into see her and she states she has fluctuations in her weight, sweats and chills, nausea a few days ago that lasted all day, and chronic left leg weakness and stiffness since last summer, that has been going on due to her chronic scoliosis. She denies dysuria, diarrhea, and constipation. She saw her PCP, Dr. Willoughby yesterday and was prescribed clonidine prn for her blood pressure. She stated she vapes marijuana, later admitted to her nurse that she relapsed on methamphetamine. Patient History Medical History (Updated 11/18/21 @ 01:21 by AMY Jiménez) ENCOUNTER FOR INSERTION OF INTRAUTERINE CONTRACEPTIVE DEVICE High risk HPV infection Methamphetamine use Psoriasis Surgical History (Updated 11/18/21 @ 01:26 by AMY Jiménez) History of cervical LEEP biopsy affecting care of mother, antepartum Family & Social History Family History (Updated 11/18/21 @ 01:24 by AMY Jiménez) Mother Diabetes mellitus Hyperkalemia Father Medical history unknown Grandfather Myocardial infarction Safety & Behavioral: Feels Safe in Current Yes Environment Tobacco & Substance use: Smoking Status Current some day smoker alcohol intake frequency 0-2 drinks per day Substance Use Type marijuana, recent relapse of methamphetamine use Meds Home Medications and Allergies Home Medications Medication Instructions Recorded Confirmed Type ibuprofen 600 mg tablet 600 mg PO TID PRN #10 tab 02/28/20 11/17/21 Rx clonidine HCl 0.2 mg tablet 0.2 mg PO TID PRN #20 tab 11/16/21 11/17/21 Rx Allergies Allergy/AdvReac Type Severity Reaction Status Date / Time hydrocodone Allergy Verified 11/16/21 14:53 Penicillins Allergy Verified 11/16/21 14:53 Review of Systems Review of Systems ROS: Yes All systems reviewed with the patient and are negative except as otherwise documented Exam Vital Signs (past 8 hours): - 11/17/21 16:20 11/17/21 17:01 11/17/21 17:02 Temperature 97.4 F L Pulse Rate 97 H Respiratory Rate 13 Blood Pressure 193/121 H 175/110 H Pulse Oximetry 100 11/17/21 17:12 11/17/21 17:20 11/17/21 17:40 Temperature Pulse Rate 104 H 97 H 92 H Respiratory Rate 18 14 15 Blood Pressure 162/102 H 187/115 H 168/105 H Pulse Oximetry 100 100 99 11/17/21 18:00 11/17/21 18:11 11/17/21 18:20 Temperature Pulse Rate 92 H 91 H 92 H Respiratory Rate 13 15 Blood Pressure 175/114 H 175/114 H 170/121 H Pulse Oximetry 100 100 11/17/21 18:30 11/17/21 18:40 11/17/21 19:00 Temperature Pulse Rate 92 H 87 84 Respiratory Rate 17 Blood Pressure 177/120 H 183/114 H Pulse Oximetry 100 100 100 11/17/21 19:20 11/17/21 19:30 11/17/21 19:40 Temperature Pulse Rate 90 81 79 Respiratory Rate 16 18 15 Blood Pressure 168/100 H 172/114 H Pulse Oximetry 100 100 100 11/17/21 20:00 11/17/21 20:20 11/17/21 20:30 Temperature Pulse Rate 80 81 96 H Respiratory Rate 17 14 Blood Pressure 165/109 H 161/105 H Pulse Oximetry 100 100 99 11/17/21 20:40 11/17/21 21:00 11/17/21 21:19 Temperature Pulse Rate 80 81 85 Respiratory Rate 12 14 Blood Pressure 167/105 H 154/100 H Pulse Oximetry 100 99 99 11/17/21 21:20 Temperature Pulse Rate Respiratory Rate Blood Pressure 145/93 H Pulse Oximetry Narrative Exam Narrative: Gen: Alert, oriented, thin and disheveled 42 y.o. female, appears a nxious HEENT: normocephalic, atraumatic, conjunctiva clear, sclera non-icteric, oral mucosa pink and moist, poor dentition Neck: supple, full ROM, no JVD, trachea is midline Resp: Lungs CTA, non-labored breathing CV: RRR, no murmur or rubs Abd: soft, non-tender, normoactive BTs Skin: no lesions or rashes, dry and intact Neuro: Alert and oriented X 4 w/no focal deficits. Speech clear and coherent. Extremities: moves all 4 extremities, is ambulatory, negative Stefani?s sign Psyche: pleasant and cooperative, normal mood and affect. Objective Labs Result Diagrams: 11/17/21 16:34 11/17/21 16:34 Labs: Laboratory Results - last 24 hr 11/17/21 11/17/21 11/17/21 16:34 16:34 16:34 WBC 5.9 RBC 4.05 Hgb 12.7 Hct 37.9 MCV 93.5 MCH 31.4 MCHC 33.6 RDW 12.8 Plt Count 257 Neut % (Auto) 68.3 Lymph % (Auto) 21.7 L [place] % (Auto) 7.6 Eos % (Auto) 1.5 L Baso % (Auto) 0.9 Neut # (Auto) 4100 Lymph # (Auto) 1300 [place] # (Auto) 500 Eos # (Auto) 100 Baso # (Auto) 100 Sodium 139 Potassium 3.3 L Chloride 104 Carbon Dioxide 24 BUN 19 H Creatinine 1.18 H Estimated GFR 59 L BUN/Creatinine Ratio 16.1 Glucose 97 Hemoglobin A1c 5.4 Calcium 8.8 Magnesium 1.8 Total Bilirubin 0.5 AST 36 ALT 28 Alkaline Phosphatase 105 Total Creatine Kinase 128 CK-MB (CK-2) 2.50 H CK-MB (CK-2) Rel Index 2.0 Troponin I < 0.012 Total Protein 7.8 Albumin 4.5 Globulin 3.3 Albumin/Globulin Ratio 1.4 Lipase 68 SARS-CoV-2 (PCR) 11/17/21 18:24 WBC RBC Hgb Hct MCV MCH MCHC RDW Plt Count Neut % (Auto) Lymph % (Auto) [place] % (Auto) Eos % (Auto) Baso % (Auto) Neut # (Auto) Lymph # (Auto) [place] # (Auto) Eos # (Auto) Baso # (Auto) Sodium Potassium Chloride Carbon Dioxide BUN Creatinine Estimated GFR BUN/Creatinine Ratio Glucose Hemoglobin A1c Calcium Magnesium Total Bilirubin AST ALT Alkaline Phosphatase Total Creatine Kinase CK-MB (CK-2) CK-MB (CK-2) Rel Index Troponin I Total Protein Albumin Globulin Albumin/Globulin Ratio Lipase SARS-CoV-2 (PCR) Negative Assessment & Plan Assessment & Plan narrative: Nahed Toribio is a 41 y.o. female with a hypertensive emergency/urgency will be observed overnight and worked for [facility]. 1 Hypertensive urgency, acute and present on admission * She is written for IV enalopril q 6 prn for a systolic of greater than 145, but no less than 25% of her highest systolic which was 195 * She has since admitted to methamphetamine use which she is either withdrawing or actively using * stress test in the am 2. Methamphetamine and marijuana use, active * have offered to have her meet with Social Work to look into rehab options * consider echo to rule out endocarditis 3. Chest pain, not resolving * Continue trending troponin, first 2 were negative * nitro for chest pain 4. Acute kidney injury, present on admission * Creatinine was 1.18, prior readings were within normal limits * Monitor daily, if increasing, consider renal ultrasound VTE Prophylaxis: Wells risk score 0 Enoxaparin 40 mg subQ once daily Bilateral SCDs Patient is placed into observation as her stay is not expected to exceed 2 midnights. FEN: IV fluids: saline lock, diet: heart healthy, labs: CBC, C/BMP, liver enzymes, Mag, PT/INR Consultants None Dispo: probable discharge to home Code status: full code as discussed with the patient who identifies Mike Thomas as her surrogate and POA. [X] I have utilized all available immediate resources to obtain, update, or review of the patient's current medications COVID-19 COVID-19 status: Negative Result date/Date tested (Pos, Neg/Pending): 11/17/21 Scores Wells' Criteria for PE Clinical signs and symptoms of DVT: No PE is #1 Dx or equally likely: No Heart rate > 100: No Immobilization at least 3 days or surg in previous 4 weeks: No History of PE or DVT: No Hemoptysis: No Malignancy w/Treatment within 6 months or palliative: No Wells' PE Score total: 0 Quality VTE Deep Vein Thrombosis/Pulmonary Embolism Present on Admission: No MIPS - Admit I confirm the patient?s Advance Care Plan is present, Code status is documented, Surrogate decision maker is in patient?s record [If Yes, STOP here]: Yes MIPS - DC The patient has current or prior documentation of left ventricular ejection fraction (LVEF) less than 40%, or moderate or severely depressed left ventricular systolic function.: No
[2021-11-17 23:27] LABS: UR Morphine/Opiate cutoff 300 Negative (Negative); Ur Creatinine Normal (Normal); Ur Specific Gravity Normal (Normal); Urine Amphetamines Positive (Negative); Urine Barbiturates Negative (Negative); Urine Benzodiazepines Negative (Negative); Urine Cocaine Negative (Negative); Urine MDMA Negative (Negative); Urine Methadone Negative (Negative); Urine Methamphetamines Positive (Negative); Urine Oxycodone Negative (Negative); Urine Phencyclidine Negative (Negative); Urine Tetrahydrocannabinol Negative (Negative); Urine Tricyclic Antidepressant Negative (Negative); Urine pH Normal (Normal)
[2021-11-17 23:29] LABS: RBC Urine None Seen (0-5/HPF)
[2021-11-17 23:30] LABS: Bacteria Urine Occasional (0-1); Culture Indicated Urine Cult Not Indicated; Squamous Epithelial Cell Urine 1-5 /HPF (0-5/HPF); WBC Urine None Seen (0-5/HPF)
[2021-11-17] MEDS: SODIUM CHLORIDE 0.9% 1,000 ML 100 ML IV (23:34)
[2021-11-17] MEDS: LOSARTAN 25 MG TABLET PO (23:34)
[2021-11-18] VITALS (8 sets, daily range): BP systolic 116–186; BP diastolic 63–126; PULSE 63–78; RESP 17–18; TEMP 36.6–36.9; O2SAT 98–100
[2021-11-18] MEDS: ENALAPRILAT 2.5 MG/ 2 ML VIAL 0.625 MG IV (01:15)
[2021-11-18 05:28] LABS: Add Manual Diff / Slide Review NO; Basophils Absolute Auto 100 /uL (0-100); Basophils Percent Auto 1.3 % (0-2); Eosinophils Absolute Auto 200 /uL (0-450); Eosinophils Percent Auto 3.1 % (2-4); Hematocrit 35.4 % (36-46); Lymphocytes Absolute Auto 1800 /uL (1100-4500); Lymphocytes Percent Auto 34.3 % (25-40); Mean Corpuscular Hemoglobin 31.5 PG (26-34); Mean Corpuscular Volume 92.7 fL (80-100); Monocytes Absolute Auto 500 /uL (0-900); Monocytes Percent Auto 9.7 % (3-14); Neutrophils Absolute Auto 2700 /uL (1500-7000); Neutrophils Percent Auto 51.6 % (50-75); Platelet Count 235 X10^3/uL (150-400); Red Blood Cell Count 3.82 X10^6/uL (4.0-5.2); Red Cell Distribution Width 12.7 % (11.6-14.8); White Blood Cell Count 5.3 X10^3/uL (4.5-11.0)
[2021-11-18 05:48] LABS: Alanine Aminotransferase 24 IU/L (<35); Albumin 3.5 g/dL (3.5-5.0); Albumin Globulin Ratio 1.3 (1.0-2.8); Alkaline Phosphatase 74 U/L (38-126); Aspartate Aminotransferase 32 IU/L (14-36); BUN Creatinine Ratio 16.2 (6-22); Bilirubin Total 0.4 mg/dL (0.2-1.3); Bilirubin Unconjugated 0.5 mg/dL (0.0-1.1); Blood Urea Nitrogen 19 mg/dL (7-17); Calcium 8.2 mg/dL (8.4-10.2); Carbon Dioxide 25 mmol/L (22-32); Chloride 108 mmol/L (98-107); Cholesterol 171 mg/dL (140-199); Estimated Glomerular Filt Rate 60 mL/min (>60); Globulin 2.7 g/dL (1.7-4.1); Glucose 94 mg/dL (70-100); HDL Cholesterol 81 mg/dL (40-60); HEMOLYSIS < 15 (0-50); LDL Cholesterol Calculated 78 mg/dL (<100); Magnesium 1.9 mg/dL (1.6-2.3); Potassium 3.5 mmol/L (3.4-5.1); Sodium 138 mmol/L (137-145); Total Protein 6.2 g/dL (6.3-8.2); Triglycerides 62 mg/dL (35-150)
[2021-11-18] MEDS: ENOXAPARIN 40 MG/0.4 ML SYRINGE SUBCUT (09:04)
[2021-11-18] MEDS: ASPIRIN EC 81 MG TABLET PO (09:04)
--- NOTE | 2021-11-18 11:20 | DI.MRI.S_ITS ---
PROCEDURE: MR HEAD/BRAIN WO CON INDICATIONS: Left numbness TECHNIQUE: Noncontrast axial T1 spin echo, axial T2 fast spin echo, sagittal and axial FLAIR, coronal T2 fast spin echo, axial gradient echo, axial diffusion and ADC through the brain. COMPARISON: [facility], CT, CT STROKE, 11/17/2021, 16:39. [facility], CT, CT ANGIO HEAD AND NECK, 11/17/2021, 16:38. FINDINGS: Image quality: Excellent. CSF Spaces: Basal cisterns are patent. No extra-axial fluid collections. Ventricles are normal in size and shape. Brain: Small foci of increased T2 signal noted in the periventricular white matter. No intracranial masses or hemorrhage. Esparza/white matter interface is normal. Brainstem appears normal. Diffusion-weighted images demonstrate no acute ischemic insult. No chronic ischemic insults. Normal intravascular flow voids are present. Skull and face: Calvarium has normal marrow signal. Orbits appear normal. Sinuses: Sinuses and mastoids are clear. IMPRESSION: 1. No acute intracranial disease process. 2. No areas of acute or chronic infarction. 3. Small foci of increased T2 signal in the periventricular white matter. Finding is nonspecific but likely differential diagnostic considerations include early chronic microvascular ischemic changes or demyelinating process including multiple sclerosis. Dictated by: An Moy MD, PhD on 11/18/2021 at 13:03 Approved by: An Moy MD, PhD on 11/18/2021 at 13:05
--- NOTE | 2021-11-18 11:42 | CM.DANOTE ---
Addendum entered by MARISOL Kendrick 11/18/21 15:39: ADD: Per RN, pt was able to have her MRI sooner than 1500 and results were normal and pt was given d/c instructions and Sig Other was not bedside and pt stated that he would not be back but did not explain further and was agreeable with d/c alone and will follow up with friend or [facility] [employer] Voucher program. BF Original Note: Patient is a 41 yo female who was admitted on 11/17/21 for Weakness/Chest Pain. Pt has [employer] and [employer] for insurance and her PCP is Dr. Uday Willoughby. EMR was reviewed. Per MD, pt with hx of scoliosis and admitted for chest pain r/o but then admitted to relapse on methamphetamine and THC. UDS+ for amphetamine and methamphetamine. Per Logistics Supply Officer, pt's BMI is 17 and has had significant malnutrition with weight down to 80 lbs in the past couple years and will meet with pt to discuss nutrition and negative impacts to pt's medical condition including pt's described sweats and irregular menstrual cycle. MRI ordered and pending for 1500. TESS met bedside with pt and her Sig Other Mike Thomas and explained role and pt has eyes closed, answers softly, states she is feeling a little better and wants to discharge but so far agreeable to wait for MRI. Pt agreeable with TESS discussed pt's situation with Mike present. Pt is unemployed currently, does not drive and has utilized [employer] bus for transport or relies on others and confirms she has Medicaid transportation. Pt confirms that she has relapsed on meth and has a hx of MARCELLE tx before but states it was through [facility] and not a local outpt agency. Pt states she would be agreeable to outpt MARCELLE tx but declines Inpt tx but Mike confirms that transport could be an issue if out of [place] since pt has taken the bus before and missed the return bus and been stuck in [place] before and the bus tends to take all day. Mike confirms he has a truck and can provide transport sometimes as he has been working parttime. Pt states though that her biggest barrier is currently being homeless and couch surfing or staying in Mike's truck and then pt is around mostly people down on their luck and are using drugs and then its so easy to relapse and use. They confirm they are on some waitlists for housing and Mike has been on the list for 4 years. Pt and Mike have not attempted [facility] yet. Pt began having withdrawal symptoms and became flushed, sweaty, agitated and not able to fully participate in discussion more and was not interested in talking about her nutrition/BMI/likely eating DO with SW right now. SW provided contact and brochure for [facility] and [facility] information as [facility] is within [facility] and sometimes they can provide transport for their services. Pt confirms they plan to stay in [employer] truck at d/c and SW provided the contact number for [facility] [employer] Voucher Program and discussed the process and pt very appreciative and will wait for Mike to return from getting lunch to discuss with him. Pt declines any further resources or needs at this time. Plan: SW to follow for MRI results as well as Logistics Supply Officer Consult to determine if pt interested in any further MH/eating resources at d/c. MARISOL Kendrick Discharge Planning/Care Management CM Discharge Assessment Start: 11/18/21 11:37 Freq: Status: Active Protocol: Document 11/18/21 11:38 BF (Rec: 11/18/21 11:41 BF [id number]) Discharge Planning Assessment Assigned Speedboat Operator MARISOL Chavez DPOA/Assigned Designee Name none, but designates [email or web address] Mckeon Martha informally Advance Directives? No Advance Directives on File No History Provided By Patient,Significant Other, Medical Record Has Patient been admitted in last 30 No days? Prior Living Arrangements Homeless Household Members significant other Comment Couch surfing with Sig Other Type of transporation used prior to Medicaid Transport admit Comment [employer] and also boyfriend's truck Independent with ADL's Yes Is patient alert and oriented? Yes Caregiver for Another No Community Services used prior to Social Work admission: Comment UDS+ meth and amphetamines Barriers to Discharge Yes Comment homeless, meth use Discharge Plan Home Transportation Arrangement Sig Other [employer] truck in the parking lot Referrals Initiated Other Additional Comment Gave information for [facility] and [facility] for housing and Motel Voucher program Whiteboard Updated in Patient Room with Yes name and ext. # of Speedboat Operator Review Status In Process Please Provide Date Initial DC 11/18/21 Assessment Was Performed Next Review Type Continued Stay Review
--- NOTE | 2021-11-18 13:43 | PM.DS.1 ---
History of Present Illness History of Present Illness Date Patient Seen: 11/18/21 Time Patient Seen: 13:43 Chief complaint: Hypertensive urgency, left sided weakness Narrative: Per AMY Jiménez: Nahed Toribio is a 41 y.o. female with a history of scoliosis, presented with chest tightness and shortness of breath. She was administered clonidine in the ED and when her bp dropped to the 140s, she told the ED staff she wanted to leave against medical advice. After some conversation with her, she agreed to stay. I went into see her and she states she has fluctuations in her weight, sweats and chills, nausea a few days ago that lasted all day, and chronic left leg weakness and stiffness since last summer, that has been going on due to her chronic scoliosis. She denies dysuria, diarrhea, and constipation. She saw her PCP, Dr. Willoughby yesterday and was prescribed clonidine prn for her blood pressure. She stated she vapes marijuana, later admitted to her nurse that she relapsed on methamphetamine. Discharge Providers Provider Date of admission: 11/17/21 19:17 Discharge Date: 11/18/21 Primary care physician: Uday Willoughby MD Consults: 11/18/21 11:13 Consult to Dietitian, Adult Routine Comment: Reason For Exam: BMI 17 and drug use Discharge provider: Mau Waldron DO Summary Hospital Course Discharge Diagnosis: 1 Hypertensive urgency, acute and present on admission 2. Methamphetamine and marijuana use, active 3. Chest pain, not resolving 4. Elevated creatinine, present on admission. 5. Chest pain, resolved 6. Left arm and leg numbess. Hospital Course: This is a 41 year old female with a PMH of hypertension who was admitted with chest pain and left arm and leg paresthesias. She endorsed methamphetamine use recently, and had no recurrence of chest pain after treatment of her blood pressure. No changes to her blood pressure medications are recommended at this time due to improvement during her stay and reports of methamphetamine use. Troponins were negative. HEART scoring was 1-2, indicative of low risk for cardiac events, and stress testing was deferred. Given persistent left sided numbness reported, MRI was performed which did not show any evidence of acute ischemia but did show some possible findings consistent with MS but findings are not specific on MRI and she otherwise does not have a common presentation. She reports no family history of MS that she is aware of. Patient was instructed to follow up with her PCP for further monitoring of her symptoms. Her creatinine was also noted to be 1.18 which was stable at 1.17 later in her hospital course. Her prior creatinine was around 0.7, however this was many years ago. Repeat BMP is recommended as an outpatient. Exam Vital Signs (past 8 hours): - 11/18/21 07:30 11/18/21 09:00 11/18/21 09:05 Temperature 98.5 F Pulse Rate 63 76 76 Respiratory Rate 17 18 Blood Pressure 120/80 116/63 116/63 Pulse Oximetry 100 100 11/18/21 12:00 Temperature 97.9 F Pulse Rate 78 Respiratory Rate 17 Blood Pressure 116/75 Pulse Oximetry 100 Oxygen Delivery Method Room Air Oxygen Flow Rate 0 Narrative Exam Narrative: Gen: Alert, oriented, thin?female, no acute distress. HEENT: normocephalic, atraumatic, conjunctiva clear, sclera non-icteric, oral mucosa pink and moist, poor dentition Neck: supple, full ROM, no JVD, trachea is midline Resp: Lungs CTA, non-labored breathing CV: RRR, no murmur or rubs Abd: soft, non-tender, non distended Skin: no lesions or rashes, dry and intact Neuro: Alert and oriented, no weakness in all extremities. Reported left decreased sensation in arm and leg. Extremities: no edema or joint effusions N Psyche: pleasant and cooperative, normal mood and affect. avoidant of eye contact. Objective Labs Result Diagrams: 11/18/21 05:12 11/18/21 05:12 Labs: Laboratory Results - last 24 hr 11/17/21 11/17/21 11/17/21 16:34 16:34 16:34 WBC 5.9 RBC 4.05 Hgb 12.7 Hct 37.9 MCV 93.5 MCH 31.4 MCHC 33.6 RDW 12.8 Plt Count 257 Neut % (Auto) 68.3 Lymph % (Auto) 21.7 L [place] % (Auto) 7.6 Eos % (Auto) 1.5 L Baso % (Auto) 0.9 Neut # (Auto) 4100 Lymph # (Auto) 1300 [place] # (Auto) 500 Eos # (Auto) 100 Baso # (Auto) 100 Sodium 139 Potassium 3.3 L Chloride 104 Carbon Dioxide 24 BUN 19 H Creatinine 1.18 H Estimated GFR 59 L BUN/Creatinine Ratio 16.1 Glucose 97 Hemoglobin A1c 5.4 Calcium 8.8 Magnesium 1.8 Total Bilirubin 0.5 Conjugated Bilirubin Unconjugated Bilirubin AST 36 ALT 28 Alkaline Phosphatase 105 Total Creatine Kinase 128 CK-MB (CK-2) 2.50 H CK-MB (CK-2) Rel Index 2.0 Troponin I < 0.012 Total Protein 7.8 Albumin 4.5 Globulin 3.3 Albumin/Globulin Ratio 1.4 Triglycerides Cholesterol LDL Cholesterol, Calc HDL Cholesterol Lipase 68 TSH Urine RBC Urine WBC Ur Squamous Epith Cells Urine Bacteria Ur Culture Indicated? U Opiates 300ng/mL cut Ur Oxycodone Screen Urine Methadone Screen Ur Barbiturates Screen U Tricyclic Antidepress Ur Phencyclidine Scrn Ur Amphetamines Screen U Methamphetamines Scrn Ur MDMA Scrn (Ecstasy) U Benzodiazepines Scrn Urine Cocaine Screen U Marijuana (THC) Screen SARS-CoV-2 (PCR) 11/17/21 11/17/21 11/17/21 18:24 20:55 20:55 WBC RBC Hgb Hct MCV MCH MCHC RDW Plt Count Neut % (Auto) Lymph % (Auto) [place] % (Auto) Eos % (Auto) Baso % (Auto) Neut # (Auto) Lymph # (Auto) [place] # (Auto) Eos # (Auto) Baso # (Auto) Sodium Potassium Chloride Carbon Dioxide BUN Creatinine Estimated GFR BUN/Creatinine Ratio Glucose Hemoglobin A1c Calcium Magnesium Total Bilirubin Conjugated Bilirubin Unconjugated Bilirubin AST ALT Alkaline Phosphatase Total Creatine Kinase CK-MB (CK-2) CK-MB (CK-2) Rel Index Troponin I Total Protein Albumin Globulin Albumin/Globulin Ratio Triglycerides Cholesterol LDL Cholesterol, Calc HDL Cholesterol Lipase TSH Urine RBC None seen Urine WBC None seen Ur Squamous Epith Cells 1-5 /hpf Urine Bacteria Occasional (0-1) Ur Culture Indicated? Cult not indicated U Opiates 300ng/mL cut Negative Ur Oxycodone Screen Negative Urine Methadone Screen Negative Ur Barbiturates Screen Negative U Tricyclic Antidepress Negative Ur Phencyclidine Scrn Negative Ur Amphetamines Screen Positive H U Methamphetamines Scrn Positive H Ur MDMA Scrn (Ecstasy) Negative U Benzodiazepines Scrn Negative Urine Cocaine Screen Negative U Marijuana (THC) Screen Negative SARS-CoV-2 (PCR) Negative 11/17/21 11/18/21 11/18/21 21:58 05:12 05:12 WBC 5.3 RBC 3.82 L Hgb 12.0 Hct 35.4 L MCV 92.7 MCH 31.5 MCHC 34.0 RDW 12.7 Plt Count 235 Neut % (Auto) 51.6 Lymph % (Auto) 34.3 [place] % (Auto) 9.7 Eos % (Auto) 3.1 Baso % (Auto) 1.3 Neut # (Auto) 2700 Lymph # (Auto) 1800 [place] # (Auto) 500 Eos # (Auto) 200 Baso # (Auto) 100 Sodium 138 Potassium 3.5 Chloride 108 H Carbon Dioxide 25 BUN 19 H Creatinine 1.17 H Estimated GFR 60 BUN/Creatinine Ratio 16.2 Glucose 94 Hemoglobin A1c Calcium 8.2 L Magnesium 1.9 Total Bilirubin 0.4 Conjugated Bilirubin 0.0 Unconjugated Bilirubin 0.5 AST 32 ALT 24 Alkaline Phosphatase 74 Total Creatine Kinase CK-MB (CK-2) CK-MB (CK-2) Rel Index Troponin I < 0.012 Total Protein 6.2 L Albumin 3.5 Globulin 2.7 Albumin/Globulin Ratio 1.3 Triglycerides 62 Cholesterol 171 LDL Cholesterol, Calc 78 HDL Cholesterol 81 H Lipase TSH Urine RBC Urine WBC Ur Squamous Epith Cells Urine Bacteria Ur Culture Indicated? U Opiates 300ng/mL cut Ur Oxycodone Screen Urine Methadone Screen Ur Barbiturates Screen U Tricyclic Antidepress Ur Phencyclidine Scrn Ur Amphetamines Screen U Methamphetamines Scrn Ur MDMA Scrn (Ecstasy) U Benzodiazepines Scrn Urine Cocaine Screen U Marijuana (THC) Screen SARS-CoV-2 (PCR) 11/18/21 05:12 WBC RBC Hgb Hct MCV MCH MCHC RDW Plt Count Neut % (Auto) Lymph % (Auto) [place] % (Auto) Eos % (Auto) Baso % (Auto) Neut # (Auto) Lymph # (Auto) [place] # (Auto) Eos # (Auto) Baso # (Auto) Sodium Potassium Chloride Carbon Dioxide BUN Creatinine Estimated GFR BUN/Creatinine Ratio Glucose Hemoglobin A1c Calcium Magnesium Total Bilirubin Conjugated Bilirubin Unconjugated Bilirubin AST ALT Alkaline Phosphatase Total Creatine Kinase CK-MB (CK-2) CK-MB (CK-2) Rel Index Troponin I Total Protein Albumin Globulin Albumin/Globulin Ratio Triglycerides Cholesterol LDL Cholesterol, Calc HDL Cholesterol Lipase TSH 2.60 Urine RBC Urine WBC Ur Squamous Epith Cells Urine Bacteria Ur Culture Indicated? U Opiates 300ng/mL cut Ur Oxycodone Screen Urine Methadone Screen Ur Barbiturates Screen U Tricyclic Antidepress Ur Phencyclidine Scrn Ur Amphetamines Screen U Methamphetamines Scrn Ur MDMA Scrn (Ecstasy) U Benzodiazepines Scrn Urine Cocaine Screen U Marijuana (THC) Screen SARS-CoV-2 (PCR) [facility] Medical History (Updated 11/18/21 @ 13:57 by Uday Willoughby MD) ENCOUNTER FOR INSERTION OF INTRAUTERINE CONTRACEPTIVE DEVICE High risk HPV infection Methamphetamine use Psoriasis Surgical History (Updated 11/18/21 @ 01:26 by AMY Jiménez) History of cervical LEEP biopsy affecting care of mother, antepartum Family History (Updated 11/18/21 @ 01:25 by AMY Jiménez) Mother Diabetes mellitus Hyperkalemia Father Medical history unknown Grandfather Myocardial infarction Social History household members: significant other Smoking Status: Current some day smoker Discharge Plan Discharge Plan Patient Disposition: Home Provider Discharge Comment: You were admitted to the hospital with tingling and chest pain. No acute cause was found but please follow up with your PCP for further evaluation. Please avoid methamphetamine as this may be related to your symptoms. You were started on a medication for your blood pressure. Please try to check this at home and stop it if you feel dizzy or light headed. Discharge orders & Medications Prescriptions: New valsartan 40 mg tablet 20 mg PO BID 30 Days Qty: 30 0RF Discontinued clonidine HCl 0.2 mg tablet 0.2 mg PO TID PRN (Reason: hypertensive emergency) Qty: 20 0RF Rx Instructions: For BP >180/105 ibuprofen 600 mg tablet 600 mg PO TID PRN (Reason: pain) Qty: 10 0RF Follow up/Referrals: Uday Willoughby MD [Primary Care Provider] - Diet/Activity/Treatments Diet: Diet as Tolerated Activity: As tolerated Visit Report/Discharge Packet Instructions: DI for High Blood Pressure, DI for Multiple Sclerosis Discharge Data Primary Care Provider: Uday Willoughby Attending Provider: Mau Waldron VTE Deep Vein Thrombosis/Pulmonary Embolism Present on Admission: No
--- NOTE | 2021-11-18 14:23 | PC.NURSE ---
Pt dressed and discharged with all belongings. Pt escorted home ambulating by self. IV removed and no tele. Discussed discharge instructions with pt including follow up as directed, new medication and discontinued medications. Provided education about high blood pressure, stroke signs and symptoms, and multiple sclerosis. Pt taken out via wheel chair by MARC.
== END 2021-11-18 14:28 | disposition home or self-care (01) ==
LOC: ED 17:39 → AC 19:17
PROVIDERS: Nurse Practitioner Family; Admitting Provider Internal Medicine; Emergency Provider Emergency Medicine; PCP Student in an Organized Health Care Education/Training Program; Visit Provider Internal Medicine
DX: I16.0 Hypertensive urgency (principal); I10 Essential (primary) hypertension; R06.02 Shortness of breath; R20.0 Anesthesia of skin; R29.701 NIHSS score 1; F15.90 Other stimulant use, unspecified, uncomplicated; F12.90 Cannabis use, unspecified, uncomplicated; N17.9 Acute kidney failure, unspecified; M41.9 Scoliosis, unspecified; Z20.822 Contact with and (suspected) exposure to COVID-19; F17.210 Nicotine dependence, cigarettes, uncomplicated
CPT/HCPCS: 36415; 70450; 70496; 70498; 70551; 71045; 80048; 80053; 80061; 80076; 80305; 81015; 82550; 82553; 82962; 83036; 83690; 83735; 84443; 84484; 85025; 87635; 93005; 93010; 96372; 96374; 99284; C9803; G0378; J1650

== ENCOUNTER 2022-02-08 18:18 | Emergency (ER) | payer OTHER, MEDICAID, SELFPAY ==
[2021-11-17 22:40] VITALS: BMI 17.8
[2022-02-08 18:21] VITALS: BP 160/99; PULSE 98; RESP 20; TEMP 37.1; O2SAT 100
--- NOTE | 2022-02-08 18:27 | DI.RAD.S_ITS ---
PROCEDURE: XR FOREARM RT 2V INDICATIONS: poss fb TECHNIQUE: 2 views of the forearm were acquired. COMPARISON: None. FINDINGS: Bones: No fractures or dislocations. No suspicious bony lesions. Soft tissues: No suspicious soft tissue calcifications or masses. IMPRESSION: No radiopaque foreign body. Dictated by: Chalo Aviles M.D. on 02/08/2022 at 18:45 Approved by: Chalo Aviles M.D. on 02/08/2022 at 18:45
== END 2022-02-08 21:12 | disposition left against medical advice (07) ==
PROVIDERS: Emergency Provider Emergency Medicine; PCP Student in an Organized Health Care Education/Training Program
DX: S41.112A Laceration without foreign body of left upper arm, initial encounter (principal)
CPT/HCPCS: 73090; 99281

== ENCOUNTER 2022-02-09 01:00 | Emergency (ER) | payer OTHER, MEDICAID, SELFPAY ==
[2021-11-17 22:40] VITALS: BMI 17.8
[2022-02-09 01:07] VITALS: BP 138/109; PULSE 90; RESP 18; TEMP 36.6; O2SAT 97
--- NOTE | 2022-02-09 01:11 | ED.WOUNDLAC ---
HPI - Wound/Laceration General Chief Complaint: Wound/Laceration Stated Complaint: LACERATION RIGHT ELBOW AREA Time Seen by Provider: 02/09/22 01:11 Source: patient Mode of arrival: Ambulatory History of Present Illness HPI narrative: 41-year-old smoker without any significant medical history presents with a chief complaint of a laceration on her right forearm. Earlier this morning she was working at home when she caught her arm on the head of a nail causing a tear in her skin. She wrapped it up and did not even bother to look at it until this evening at which point a friend of hers with some medical knowledge encouraged her to present. The emergency department was quite busy and she was unwilling to wait initially because of a dog waiting at home but she did return. She states her tetanus will need to be updated. The bleeding has stopped and it has been wrapped with a pressure dressing. She denies any numbness, tingling or weakness and denies any other injury. Related Data Previous Rx's Medication Instructions Recorded doxycycline hyclate 100 mg tablet 100 mg PO BID #20 tabs 02/09/22 Allergies Allergy/AdvReac Type Severity Reaction Status Date / Time hydrocodone Allergy Verified 11/16/21 14:53 Penicillins Allergy Verified 11/16/21 14:53 Review of Systems Review of Systems Narrative: GENERAL: Denies chills, fatigue, malaise, fever, sweats. HEENT: Denies sinus pain, ear pain, sore throat, difficulty swallowing, dizziness. RESPIRATORY: Denies dyspnea, cough, wheezing, hemoptysis, sputum. CARDIOVASCULAR: Denies chest pain, palpitations, orthopnea, edema, GASTROINTESTINAL: Denies nausea, vomiting, abdominal pain, diarrhea, constipation, melena. : Denies dysuria, frequency, incontinence, hematuria, urinary retention. MUSCULOSKELETAL: denies weakness, joint pain, or bony pain SKIN: See HPI NEUROLOGIC: Denies weakness, headache, numbness, change in speech, confusion, seizures, incoordination. PSYCHIATRIC: No concerning psychosocial issues. 12 point review of systems is negative except for those stated above Patient History Medical History ENCOUNTER FOR INSERTION OF INTRAUTERINE CONTRACEPTIVE DEVICE High risk HPV infection Methamphetamine use Psoriasis Surgical History History of cervical LEEP biopsy affecting care of mother, antepartum Family History Mother Diabetes mellitus Hyperkalemia Father Medical history unknown Grandfather Myocardial infarction Social History household members: significant other Smoking Status: Current some day smoker Smoking Status: Current some day smoker tobacco type: vaping alcohol intake frequency: 3 or more drinks per day Substance Use Type: marijuana Exam Narrative Exam Narrative: GENERAL: [41] year old patient appears stated age. Well-developed patient, in mild distress. HEAD: Atraumatic. Normocephalic. EYES: Pupils equal round and reactive. Extraocular motions intact. No scleral icterus. No injection or drainage. ENT: Nose without bleeding, purulent drainage. Throat without erythema, tonsillar hypertrophy or exudate. Airway patent. NECK: Trachea midline. Non tender CARDIOVASCULAR: Regular rate and rhythm without murmurs, gallops, or rubs. RESPIRATORY: Clear to auscultation. Breath sounds equal bilaterally. No wheezes, rales, or rhonchi. GASTROINTESTINAL: Abdomen soft, non-tender, nondistended. EXTREMITIES: 3 mm irregular, flap laceration of proximal lateral forearm, subcu fat is exposed, no active bleeding, no foreign bodies noted, when viewed under a bloodless field no evidence of tendon injuries noted No edema or joint tenderness. BACK: Nontender without deformity or crepitance. No flank tenderness. NEURO: AOx3. SKIN: No rash or erythema of visible areas Initial Vital Signs Initial Vital Signs: Vital Signs Temperature 98 F 02/09/22 01:07 Pulse Rate 90 02/09/22 01:07 Respiratory Rate 18 02/09/22 01:07 Blood Pressure 138/109 H 02/09/22 01:07 Pulse Oximetry 97 02/09/22 01:07 Oxygen Delivery Method 02/09/22 01:07 Procedures Laceration Repair Laceration 1: Site: upper extremity Side (If applicable): right Size (cm): 3 Description: stellate, flap and irregular Depth: involves muscle layer Local Anesthetic: bupivacaine 0.5% and with epi Amount of anesthesia used (mL): 4 Pre-repair: wound explored, irrigated extensively and cleansed with chlorhexadine Skin layer closed with: nylon Skin layer suture size: 3-0 Number of sutures: 6 Technique: simple, interrupted and horizontal mattress Course Orders Ordered: Discontinued Medications Bupivacaine HCl/Epinephrine Bitart (Bupivacaine 0.5% W/ Epi (Pf) 30 Ml Vial) 5 ml SUBCUT NOW ONE Stop: 02/09/22 01:17 Last Admin: 02/09/22 01:27 Dose: 5 ml Documented By: EB Diphtheria/Tetanus/Acell Pertussis (Tet,Diph,Pertuss(Acell),Vac/Pf 0.5 Ml Syringe) 0.5 ml IM .ONCE ONE Stop: 02/09/22 01:17 Last Admin: 02/09/22 01:27 Dose: 0.5 ml Documented By: EB Vital Signs Vital signs: Vital Signs - 8 hr 02/09/22 01:07 Temperature 98 F Pulse Rate 90 Respiratory Rate 18 Blood Pressure 138/109 H Pulse Oximetry 97 Oxygen Delivery Method Room Air MDM - Wound/Laceration Imaging Data Extremity x-ray #1: Radiologist's Impression: [address] [address] XRay Report Signed Patient: Nahed Toribio MR#: [id number] : 1980 Acct:[id number] Age/Sex: 41 / F Date of Service: 02/08/22 Loc: ED Accession Number: [id number] ?? Procedure: XR forearm RT 2V Ordering Provider: Tha Courtney D.O. PROCEDURE:? XR FOREARM RT 2V ? INDICATIONS:? poss fb ? TECHNIQUE:? 2 views of the forearm were acquired.? ? COMPARISON:? None. ? FINDINGS:? ? Bones:? No fractures or dislocations.? No suspicious bony lesions.? ? Soft tissues:? No suspicious soft tissue calcifications or masses.? ? ? IMPRESSION:? No radiopaque foreign body. ? ? ? Dictated by: Chalo Aviles M.D. on 02/08/2022 at 18:45 ? ? Approved by: Chalo Aviles M.D. on 02/08/2022 at 18:45? Discharge Plan Departure Patient Disposition: Home Clinical Impression: Laceration of right arm with complication Instructions: DI for Laceration Repair Activity Restrictions/Additional Instructions: *You have been diagnosed with [right arm laceration] *What to do: *Please continue to take your regular medications as directed. [x ] New medication prescriptions sent to your pharmacy: [ [facility]] [ ] New medication written as a paper prescription [ ] No new medications given * Please keep the wound clean and dry to the best of your ability. Please monitor for signs of infection such as redness to the skin or increasing pain. Have the sutures/yonis removed by your doctor in about 7-10 days. If you are unable to get into your doctor, we would be happy to remove the sutures/yonis in that same timeframe. *If you do not have a primary care provider please contact the [facility] Resource line at [phone]. They will ask some questions about your medical history and help get you set up with a doctor in the community. *Return to Emergency Department if you should have any new, worsening or concerning symptoms, such as [fever greater than 101 F, shaking chills, worsening pain, persistent vomiting or other bothersome symptoms] Prescriptions: New doxycycline hyclate 100 mg tablet 100 mg PO BID Qty: 20 0RF Referrals: Uday Willoughby MD [Primary Care Provider] - Visit Report Forms: Patient Portal/API
[2022-02-09] MEDS: TET,DIPH,PERTUSS(ACELL),VAC/PF 0.5 ML SYRINGE IM (01:27)
[2022-02-09] MEDS: BUPIVACAINE 0.5% W/ EPI (PF) 30 ML VIAL 5 ML SUBCUT (01:27)
== END 2022-02-09 02:05 | disposition home or self-care (01) ==
PROVIDERS: Emergency Provider Emergency Medicine; PCP Student in an Organized Health Care Education/Training Program
DX: S51.811A Laceration without foreign body of right forearm, initial encounter (principal); W45.0XXA Nail entering through skin, initial encounter; Z23 Encounter for immunization
CPT/HCPCS: 13121; 90471; 99283; 90715

== ENCOUNTER 2022-10-21 21:46 | Emergency (ER) | payer OTHER, MEDICAID, SELFPAY ==
[2021-11-17 22:40] VITALS: BMI 17.8
== END 2022-10-21 23:39 | disposition left against medical advice (07) ==
PROVIDERS: Emergency Provider Emergency Medicine; PCP Student in an Organized Health Care Education/Training Program

== ENCOUNTER 2022-12-31 18:28 | Emergency (ER) | payer OTHER, MEDICAID, SELFPAY ==
[2021-11-17 22:40] VITALS: BMI 17.8
--- NOTE | 2022-12-31 18:43 | DI.RAD.S_ITS ---
PROCEDURE: XR CHEST 2V INDICATIONS: cough, SOB TECHNIQUE: 2 views of the chest were acquired. COMPARISON: [facility], CR, XR CHEST 1V, 11/17/2021, 16:30. FINDINGS: Surgical changes and devices: None. Lungs and pleura: Lungs are clear. Hyperaeration, flattening of the hemidiaphragms, and increased retrosternal clear space on the lateral view. No focal consolidation. No pleural effusions or pneumothorax. Mediastinum: Mediastinal contours are normal. Heart size is normal. Bones and chest wall: No suspicious bony abnormalities. Soft tissues appear unremarkable. IMPRESSION: Chest without acute cardiopulmonary abnormalities. Findings compatible with chronic obstructive pulmonary physiology/COPD. No focal consolidation. Dictated by: Sunil Orr M.D. on 12/31/2022 at 19:16 Approved by: Sunil Orr M.D. on 12/31/2022 at 19:17
--- NOTE | 2022-12-31 18:55 | PC.NURSE ---
No answer for triage
[2022-12-31 19:16] VITALS: BP 142/103; PULSE 107; RESP 18; TEMP 36.6; O2SAT 100; BMI 19.1
[2022-12-31 19:45] LABS: Add Manual Diff / Slide Review NO; Basophils Absolute Auto 0 /uL (0-100); Basophils Percent Auto 0.6 % (0-2); Eosinophils Absolute Auto 0 /uL (0-450); Eosinophils Percent Auto 0.3 % (2-4); Hematocrit 36.6 % (36-46); Hemoglobin 12.5 g/dL (12.0-16.0); Lymphocytes Absolute Auto 800 /uL (1100-4500); Lymphocytes Percent Auto 23.2 % (25-40); Mean Corpuscular HGB Conc 34.1 % (30-36); Mean Corpuscular Hemoglobin 31.9 PG (26-34); Mean Corpuscular Volume 93.5 fL (80-100); Monocytes Absolute Auto 500 /uL (0-900); Monocytes Percent Auto 13.8 % (3-14); Neutrophils Absolute Auto 2100 /uL (1500-7000); Neutrophils Percent Auto 62.1 % (50-75); Platelet Count 193 X10^3/uL (150-400); Red Blood Cell Count 3.91 X10^6/uL (4.0-5.2); White Blood Cell Count 3.4 X10^3/uL (4.5-11.0)
[2022-12-31 19:51] LABS: Prothrombin Time 11.1 SECONDS (10.1-12.7)
[2022-12-31 20:01] LABS: Lactate (Lactic Acid) 0.7 mmol/L (0.7-2.1)
[2022-12-31 20:02] LABS: Alanine Aminotransferase 30 IU/L (<35); Albumin Globulin Ratio 1.3 (1.0-2.8); Alkaline Phosphatase 87 U/L (38-126); Aspartate Aminotransferase 34 IU/L (14-36); BUN Creatinine Ratio 18.2 (6-22); Bilirubin Total 0.4 mg/dL (0.2-1.3); Blood Urea Nitrogen 20 mg/dL (7-17); Calcium 8.2 mg/dL (8.4-10.2); Carbon Dioxide 27 mmol/L (22-32); Chloride 102 mmol/L (98-107); Estimated Glomerular Filt Rate > 60 mL/min (>60); Globulin 3.2 g/dL (1.7-4.1); Glucose 96 mg/dL (70-100); HEMOLYSIS 18 (0-50); Sodium 135 mmol/L (137-145); Total Protein 7.2 g/dL (6.3-8.2)
[2022-12-31 20:14] LABS: NT-proBNP (BNP-Adult 18+) 103 pg/mL (<125); Troponin I < 0.012 ng/mL (0.01-0.034)
[2022-12-31 22:07] VITALS: BP 156/96; PULSE 98; O2SAT 98
[2022-12-31 22:30] VITALS: BP 162/97; PULSE 99; O2SAT 98
[2022-12-31 23:00] VITALS: BP 160/96; PULSE 101; O2SAT 100
--- NOTE | 2022-12-31 23:13 | PC.NURSE ---
pt states symptoms started today pt has not taken anything for the symptoms, no SOB
--- NOTE | 2022-12-31 23:30 | ED.URI ---
HPI - URI/Sore Throat General Chief Complaint: Upper Respiratory Symptoms Stated Complaint: Thinks pneumonia Time Seen by Provider: 12/31/22 18:43 Source: patient Mode of arrival: Ambulatory History of Present Illness HPI Narrative: patient not seen by provider. She is VDC Related Data Previous Rx's Medication Instructions Recorded doxycycline hyclate 100 mg tablet 100 mg PO BID #20 tabs 02/09/22 Allergies Allergy/AdvReac Type Severity Reaction Status Date / Time hydrocodone Allergy Verified 12/31/22 19:20 Penicillins Allergy Verified 12/31/22 19:20 Patient History Medical History ENCOUNTER FOR INSERTION OF INTRAUTERINE CONTRACEPTIVE DEVICE High risk HPV infection Methamphetamine use Psoriasis Surgical History History of cervical LEEP biopsy affecting care of mother, antepartum Family History Mother Diabetes mellitus Hyperkalemia Father Medical history unknown Grandfather Myocardial infarction Social History household members: significant other Smoking Status: Current every day smoker Smoking Status: Current every day smoker tobacco type: vaping alcohol intake frequency: 3 or more drinks per day Substance Use Type: marijuana Exam Initial Vital Signs Initial Vital Signs: Vital Signs Temperature 98 F 12/31/22 19:16 Pulse Rate 107 H 12/31/22 19:16 Respiratory Rate 18 12/31/22 19:16 Blood Pressure 142/103 H 12/31/22 19:16 Pulse Oximetry 100 12/31/22 19:16 Oxygen Delivery Method Room Air 12/31/22 19:16 Course Orders Ordered: Discontinued Medications Sodium Chloride (Normal Saline 0.9%) 1,000 mls @ 1,000 mls/hr IV BOLUS ONE Stop: 01/01/23 00:29 Last Admin: 01/01/23 00:04 Dose: Not Given Documented By: ROMARIO Vital Signs Vital signs: Vital Signs - 8 hr 12/31/22 22:30 12/31/22 22:30 12/31/22 23:00 Pulse Rate 99 H Blood Pressure 162/97 H 160/96 H Pulse Oximetry 98 12/31/22 23:00 12/31/22 23:32 Pulse Rate 101 H 97 H Blood Pressure Pulse Oximetry 100 98 MDM - URI/Sore Throat Lab Data 12/31/22 19:30 12/31/22 19:30 Labs: Lab Results 12/31/22 12/31/22 12/31/22 Range/Units 19:30 19:30 19:30 WBC 3.4 L (4.5-11.0) X10^3/uL RBC 3.91 L (4.0-5.2) X10^6/uL Hgb 12.5 (12.0-16.0) g/dL Hct 36.6 (36-46) % MCV 93.5 (80-100) fL MCH 31.9 (26-34) PG MCHC 34.1 (30-36) % RDW 13.0 (11.6-14.8) % Plt Count 193 (150-400) X10^3/uL Neut % (Auto) 62.1 (50-75) % Lymph % (Auto) 23.2 L (25-40) % [place] % (Auto) 13.8 (3-14) % Eos % (Auto) 0.3 L (2-4) % Baso % (Auto) 0.6 (0-2) % Neut # (Auto) 2100 (5140-9446) /uL Lymph # (Auto) 800 L (6372-0953) /uL [place] # (Auto) 500 (0-900) /uL Eos # (Auto) 0 (0-450) /uL Baso # (Auto) 0 (0-100) /uL PT 11.1 (10.1-12.7) SECONDS INR 1.0 (0.9-1.3) D-Dimer (<500) ng/ml Sodium 135 L (137-145) mmol/L Potassium 4.0 (3.4-5.1) mmol/L Chloride 102 (98-107) mmol/L Carbon Dioxide 27 (22-32) mmol/L BUN 20 H (7-17) mg/dL Creatinine 1.10 H (0.52-1.04) mg/dL Estimated GFR > 60 (>60) mL/min BUN/Creatinine Ratio 18.2 (6-22) Glucose 96 (70-100) mg/dL Lactate (0.7-2.1) mmol/L Calcium 8.2 L (8.4-10.2) mg/dL Total Bilirubin 0.4 (0.2-1.3) mg/dL AST 34 (14-36) IU/L ALT 30 (<35) IU/L Alkaline Phosphatase 87 (38-126) U/L Troponin I < 0.012 (0.01-0.034) ng/mL NT-Pro-B Natriuret Pep 103 (<125) pg/mL Total Protein 7.2 (6.3-8.2) g/dL Albumin 4.0 (3.5-5.0) g/dL Globulin 3.2 (1.7-4.1) g/dL Albumin/Globulin Ratio 1.3 (1.0-2.8) 12/31/22 12/31/22 Range/Units 19:30 19:30 WBC (4.5-11.0) X10^3/uL RBC (4.0-5.2) X10^6/uL Hgb (12.0-16.0) g/dL Hct (36-46) % MCV (80-100) fL MCH (26-34) PG MCHC (30-36) % RDW (11.6-14.8) % Plt Count (150-400) X10^3/uL Neut % (Auto) (50-75) % Lymph % (Auto) (25-40) % [place] % (Auto) (3-14) % Eos % (Auto) (2-4) % Baso % (Auto) (0-2) % Neut # (Auto) (3835-9563) /uL Lymph # (Auto) (7478-4566) /uL [place] # (Auto) (0-900) /uL Eos # (Auto) (0-450) /uL Baso # (Auto) (0-100) /uL PT (10.1-12.7) SECONDS INR (0.9-1.3) D-Dimer 309 (<500) ng/ml Sodium (137-145) mmol/L Potassium (3.4-5.1) mmol/L Chloride (98-107) mmol/L Carbon Dioxide (22-32) mmol/L BUN (7-17) mg/dL Creatinine (0.52-1.04) mg/dL Estimated GFR (>60) mL/min BUN/Creatinine Ratio (6-22) Glucose (70-100) mg/dL Lactate 0.7 (0.7-2.1) mmol/L Calcium (8.4-10.2) mg/dL Total Bilirubin (0.2-1.3) mg/dL AST (14-36) IU/L ALT (<35) IU/L Alkaline Phosphatase (38-126) U/L Troponin I (0.01-0.034) ng/mL NT-Pro-B Natriuret Pep (<125) pg/mL Total Protein (6.3-8.2) g/dL Albumin (3.5-5.0) g/dL Globulin (1.7-4.1) g/dL Albumin/Globulin Ratio (1.0-2.8) Discharge Plan Departure Patient Disposition: Left Against Medical Advice Clinical Impression: Left against medical advice Prescriptions: No Action doxycycline hyclate 100 mg tablet 100 mg PO BID Qty: 20 0RF Stand Alone Forms: Against Medical Advice
[2022-12-31 23:32] VITALS: PULSE 97; O2SAT 98
[2022-12-31 23:47] LABS: D Dimer 309 ng/ml (<500)
== END 2023-01-01 00:02 | disposition left against medical advice (07) ==
PROVIDERS: Emergency Provider Emergency Medicine; PCP Student in an Organized Health Care Education/Training Program
DX: R06.02 Shortness of breath (principal); R05.9 Cough, unspecified
CPT/HCPCS: 36415; 71046; 80053; 83605; 83880; 84484; 85025; 85379; 85610; 93005; 99283

== ENCOUNTER → 2023-01-07 18:56 | Outpatient (CLI) | payer OTHER, MEDICAID, SELFPAY ==
[2021-11-17 22:40] VITALS: BMI 17.8
--- NOTE | 2023-01-07 18:58 | DI.RAD.S_ITS ---
PROCEDURE: XR CHEST 2V INDICATIONS: Cough TECHNIQUE: 2 views of the chest were acquired. COMPARISON: [facility], CR, XR CHEST 2V, 12/31/2022, 18:42. FINDINGS: Surgical changes and devices: None. Lungs and pleura: Patchy left lower lobe opacity is suspicious for pneumonia. No pleural effusion or pneumothorax. Mediastinum: Mediastinal contours are normal. Heart size is normal. Bones and chest wall: No suspicious bony abnormalities. Soft tissues appear unremarkable. IMPRESSION: Patchy left lower lobe opacity is suspicious for pneumonia. Approved by: Oscar Padilla M.D. on 01/07/2023 at 21:48
== END ==
PROVIDERS: PCP Pediatrics; Referring Provider Nurse Practitioner Family; Visit Provider Nurse Practitioner Family
DX: R05.9 Cough, unspecified (principal)
CPT/HCPCS: 71046

== ENCOUNTER 2023-03-16 05:55 | Emergency (ER) | payer OTHER, MEDICAID, SELFPAY ==
[2021-11-17 22:40] VITALS: BMI 17.8
[2023-03-16 06:11] VITALS: BP 135/80; PULSE 113; RESP 20; TEMP 36.9; O2SAT 100; BMI 16.2
--- NOTE | 2023-03-16 06:23 | ED.EYEPROB ---
HPI - Eye Problem General Chief complaint: Eye Problems Stated complaint: rt eye pain contact stuck in eye Time Seen by Provider: 03/16/23 06:12 Source: patient Mode of arrival: Ambulatory History of Present Illness HPI Narrative: Patient healthy 42-year-old female who presents today with right eye pain. She reports that she was wearing decorative red contact lens for the last 5 days. She got the 1 out of her left eye but for out about her right eye. She is having severe eye pain this morning. Unable to open her eye. No Fever. Related Data Previous Rx's Medication Instructions Recorded benzonatate 100 mg capsule 200 mg PO BID PRN cough #20 caps 01/07/23 azithromycin 250 mg tablet See Rx Instructions PO .COMPLEX #6 01/11/23 tabs ofloxacin 0.3 % eye drops (Ocuflox) 2 drp EYE-LEFT Q6HR #10 mL 03/16/23 Allergies Allergy/AdvReac Type Severity Reaction Status Date / Time hydrocodone Allergy Verified 01/07/23 18:50 Penicillins Allergy Verified 01/07/23 18:50 Review of Systems Review of Systems ROS Unobtainable: All systems reviewed & are unremarkable except as noted in HPI and below Patient History Medical History ENCOUNTER FOR INSERTION OF INTRAUTERINE CONTRACEPTIVE DEVICE High risk HPV infection Methamphetamine use Psoriasis Surgical History History of cervical LEEP biopsy affecting care of mother, antepartum Family History Mother Diabetes mellitus Hyperkalemia Father Medical history unknown Grandfather Myocardial infarction Social History household members: significant other Smoking Status: Current every day smoker Smoking Status: Current every day smoker tobacco type: vaping alcohol intake frequency: a few times a week Substance Use Type: marijuana Exam Initial Vital Signs Initial Vital Signs: Vital Signs Temperature 98.5 F 03/16/23 06:11 Pulse Rate 113 H 03/16/23 06:11 Respiratory Rate 20 03/16/23 06:11 Blood Pressure 135/80 03/16/23 06:11 Pulse Oximetry 100 03/16/23 06:11 Oxygen Delivery Method Room Air 03/16/23 06:11 GENERAL: Well-appearing, well-nourished and in no acute distress. EYE: Right eye extraocular movements intact contact removed large corneal abrasion CARDIOVASCULAR: peripheral pulses in tact, cap refill <2 sec RESPIRATORY: No respiratory distress, speaks in full sentences without difficulty EXTREMITIES: Normal range of motion, no clubbing or edema. Neurovascularly intact NEUROLOGICAL: Cranial nerves II through XII grossly intact. Normal gait and speech. SKIN: Warm, dry, no petechiae, no rashes or lesions. Course Orders Ordered: Discontinued Medications Erythromycin (Erythromycin Ophth 1 Gm Oint) 1 applic EYE-RIGHT NOW ONE Stop: 03/16/23 06:33 Last Admin: 03/16/23 06:39 Dose: 1 applic Fluorescein Sodium (Fluorescein 1 Mg Strip) 1 mg EYE-BOTH NOW ONE Stop: 03/16/23 06:20 Last Admin: 03/16/23 06:39 Dose: 1 mg Proparacaine HCl (Proparacaine 0.5% Ophth Aggie) 1 drops EYE-BOTH NOW ONE Stop: 03/16/23 06:20 Last Admin: 03/16/23 06:38 Dose: 1 drops Vital Signs Vital signs: Vital Signs - 8 hr 03/16/23 06:11 Temperature 98.5 F Pulse Rate 113 H Respiratory Rate 20 Blood Pressure 135/80 Pulse Oximetry 100 Oxygen Delivery Method Room Air MDM - Eye Problem MDM Narrative Medical decision making narrative: Patient 42-year-old female presents today with contact in rate eye. Contact removed large abrasion. She is given erythromycin ointment for now with ofloxacin drops to pharmacy of choice. Recommend Ophthalmology follow-up. Discharge Plan Departure Patient Disposition: Home Clinical Impression: Corneal abrasion of right eye due to contact lens Instructions: DI for Corneal Abrasion Activity Restrictions/Additional Instructions: *You have been diagnosed with right eye corneal abrasion *What to do: Do not wear contacts. Expect to be sensitive to light *Continue to take medications as directed Ofloxacin drops 2 drops every 3 hours for 2 days then 2 drops every 6 hours for 5 Erythromycin ointment as needed every 4 hours for comfort especially at night Motrin 600 mg every 6 hours if needed for [id number] pain Tylenol 1000 mg every 6 hours needed for [id number] pain *Follow up with your primary care provider in 2-3 days or call [phone] I do recommend calling and following up with Ophthalmology *Return to ER if you should have increasing pain decreased vision or any new, worsening or concerning symptoms Prescriptions: New ofloxacin [Ocuflox] 0.3 % drops 2 drp EYE-LEFT Q6HR Qty: 10 0RF Rx Instructions: 2 drops q 3hr x 2 days then 2 drops q6hr x 5 days No Action benzonatate 100 mg capsule 200 mg PO BID PRN (Reason: cough) Qty: 20 0RF azithromycin 250 mg tablet See Rx Instructions PO .COMPLEX Qty: 6 0RF Rx Instructions: For 250 mg dose pack: take 500 mg today (day 1), then 250 mg for 4 days (days 2-5) PO Referrals: Yuli Mendez MD [Physician] - Bayron Prado MD [Primary Care Provider] - Stand Alone Forms: Patient Portal/API
[2023-03-16] MEDS: PROPARACAINE 0.5% OPHTH SOL 1 DROPS EYE-BOTH (06:38)
[2023-03-16] MEDS: FLUORESCEIN 1 MG STRIP EYE-BOTH (06:39)
[2023-03-16] MEDS: ERYTHROMYCIN OPHTH 1 GM OINT 1 APPLIC EYE-RIGHT (06:39)
== END 2023-03-16 06:47 | disposition home or self-care (01) ==
PROVIDERS: Emergency Provider Emergency Medicine; PCP Pediatrics
DX: H18.821 Corneal disorder due to contact lens, right eye (principal)
CPT/HCPCS: 99282; 99283

== ENCOUNTER 2024-01-30 13:05 | Inpatient (IN) | payer OTHER, MEDICAID, SELFPAY ==
[2021-11-17 22:40] VITALS: BMI 17.8
[2024-01-30] VITALS (57 sets, daily range): BP systolic 78–113; BP diastolic 47–68; PULSE 60–109; RESP 12–41; TEMP 35.9–37; O2SAT 90–100; BMI 15.7; BMI 16.0
--- NOTE | 2024-01-30 13:28 | ED.NEUROSD ---
HPI - Neuro Symptoms/Deficit General Chief Complaint: Neuro Symptoms/Deficit Stated Complaint: lightheaded, blurry vision px in rt eye, sob Time Seen by Provider: 01/30/24 13:14 Source: patient and family Mode of arrival: Ambulatory History of Present Illness HPI Narrative: Patient is a 43-year-old female who according to her problem list has had issues with methamphetamine abuse. Has also had issues with both hypertension and hypotension. Is here for evaluation of episodes where she states she was getting very lightheaded when she stands up and bends over. Also associated with a headache, blurry vision in her right eye which is not currently happening. Earlier today she would some tingling in her right arm and also earlier today stated that she thought that she was somewhat confused and could not say the words she was thinking. No chest pain. No shortness of breath. She has not had much to eat or drink over the past couple days because of issues with money. Did eat this morning. On Anticoagulants: No Related Data Home Medications Medication Instructions Recorded Confirmed amlodipine 5 mg tablet 5 mg PO DAILY 01/30/24 01/30/24 lisinopril 20 mg tablet 20 mg PO DAILY 01/30/24 01/30/24 Allergies Allergy/AdvReac Type Severity Reaction Status Date / Time hydrocodone Allergy Verified 01/30/24 13:17 Penicillins Allergy Verified 01/30/24 13:17 Review of Systems Review of Systems ROS Unobtainable: All systems reviewed & are unremarkable except as noted in HPI and below Hematologic/Lymphatic On Anticoagulants: No Patient History Medical History Methamphetamine use Psoriasis ENCOUNTER FOR INSERTION OF INTRAUTERINE CONTRACEPTIVE DEVICE High risk HPV infection Surgical History History of cervical LEEP biopsy affecting care of mother, antepartum Family History Mother Diabetes mellitus Hyperkalemia Father Medical history unknown Grandfather Myocardial infarction Social History household members: significant other Smoking Status: Current every day smoker Smoking Status: Current every day smoker tobacco type: vaping alcohol intake frequency: a few times a week Substance Use Type: marijuana and methamphetamine Exam Initial Vital Signs Initial Vital Signs: Vital Signs Pulse Rate 82 01/30/24 13:12 Blood Pressure 94/66 01/30/24 13:12 Pulse Oximetry 90 L 01/30/24 13:12 Const General: cooperative, comfortable and No ill appearing HENMT Head: normal to inspection and normocephalic Resp Effort & Inspection: normal respiratory effort Auscultation: clear to auscultation bilaterally Cardio Rate: regular rate Rhythm: regular rhythm Skin General: no rashes or lesions noted Neuro General: patient alert, patient awake, patient oriented x3 and moves all extremities Extrem General: normal to inspection and capillary refill normal Course Orders Ordered: ED Orders 01/30/24 13:20 Consult to SECOND WATCH SERGEANT - Welding Machine Operator Friction Stat 01/30/24 13:29 CT head/brain wo con Stat 01/30/24 13:35 Complete Blood Count AUTO DIFF Stat Comprehensive Metabolic Panel Stat Lipase Stat Test Serum,Qual Stat 01/30/24 15:08 BMP [Basic Metabolic Panel] Stat 01/30/24 15:13 Creatinine Urine Random Stat Sodium Urine Random Stat 01/30/24 15:15 Ictotest Urine Stat Urinalysis and Microscopic Stat Urine Culture Stat Acetaminophen (Acetaminophen 325 Mg Tablet) 650 mg PO Q6H PRN PRN Reason: Fever/Mild Pain (1-3) Lactated Ringer's (Lactated Ringers) 1,000 mls @ 250 mls/hr IV BOLUS ONE Stop: 01/30/24 18:50 Last Infusion: 01/30/24 17:24 Dose: 250 mls/hr Documented By: Admin: 01/30/24 14:59 Dose: 250 mls/hr Documented By: ORESTES Lactated Ringer's (Lactated Ringers) 1,000 mls @ 150 mls/hr IV CONT SHAYY Naloxone HCl (Naloxone 0.4 Mg/Ml Vial) 0.2 mg IV Q2MIN PRN PRN Reason: Opiate Reversal Discontinued Medications Sodium Chloride (Normal Saline 0.9%) 1,000 mls @ 1,000 mls/hr IV BOLUS ONE Stop: 01/30/24 14:27 Last Infusion: 01/30/24 14:25 Dose: Infused Documented By: Admin: 01/30/24 13:45 Dose: 1,000 mls/hr Documented By: ORESTES Sodium Chloride (Normal Saline 0.9%) 1,000 mls @ 500 mls/hr IV BOLUS ONE Stop: 01/30/24 16:26 Last Admin: 01/30/24 14:30 Dose: Not Given Documented By: ORESTES Sodium Chloride (Normal Saline 0.9%) 1,000 mls @ 1,000 mls/hr IV BOLUS ONE Stop: 01/30/24 15:28 Last Infusion: 01/30/24 15:00 Dose: Infused Documented By: Admin: 01/30/24 14:31 Dose: 1,000 mls/hr Documented By: ORESTES Lorazepam (Lorazepam 2 Mg/Ml Inj) 1 mg IV NOW ONE Stop: 01/30/24 14:13 Last Admin: 01/30/24 14:16 Dose: 1 mg Documented By: ORESTES Vital Signs Vital signs: Vital Signs - 8 hr 01/30/24 13:12 01/30/24 13:12 01/30/24 13:17 Temperature 97.9 F Pulse Rate 82 82 Respiratory Rate 17 Blood Pressure 94/66 94/66 Pulse Oximetry 90 L 98 Oxygen Delivery Method Room Air 01/30/24 13:30 01/30/24 13:53 01/30/24 13:53 Temperature Pulse Rate 90 99 H Respiratory Rate 15 24 Blood Pressure 91/50 L Pulse Oximetry 100 100 Oxygen Delivery Method 01/30/24 14:00 01/30/24 14:05 01/30/24 14:05 Temperature Pulse Rate 91 H 95 H Respiratory Rate 23 30 H Blood Pressure 78/47 L Pulse Oximetry 100 100 Oxygen Delivery Method Room Air 01/30/24 14:10 01/30/24 14:10 01/30/24 14:15 Temperature Pulse Rate 98 H Respiratory Rate 36 H Blood Pressure 91/54 L 85/53 L Pulse Oximetry 99 Oxygen Delivery Method 01/30/24 14:15 01/30/24 14:20 01/30/24 14:20 Temperature Pulse Rate 98 H 98 H Respiratory Rate 34 H 41 H Blood Pressure 88/54 L Pulse Oximetry 100 100 Oxygen Delivery Method Room Air 01/30/24 14:25 01/30/24 14:25 01/30/24 14:30 Temperature Pulse Rate 101 H Respiratory Rate 24 Blood Pressure 86/52 L 83/51 L Pulse Oximetry 99 Oxygen Delivery Method 01/30/24 14:30 01/30/24 14:35 01/30/24 14:35 Temperature Pulse Rate 96 H 97 H Respiratory Rate 19 19 Blood Pressure 89/52 L Pulse Oximetry 100 98 Oxygen Delivery Method 01/30/24 14:40 01/30/24 14:40 01/30/24 14:45 Temperature Pulse Rate 96 H Respiratory Rate 17 Blood Pressure 87/52 L 85/50 L Pulse Oximetry 99 Oxygen Delivery Method Room Air 01/30/24 14:45 01/30/24 14:50 01/30/24 14:50 Temperature Pulse Rate 94 H 95 H Respiratory Rate 16 17 Blood Pressure 82/52 L Pulse Oximetry 99 99 Oxygen Delivery Method Room Air 01/30/24 14:55 01/30/24 14:55 01/30/24 15:00 Temperature Pulse Rate 90 Respiratory Rate 18 Blood Pressure 87/55 L 84/48 L Pulse Oximetry 99 Oxygen Delivery Method 01/30/24 15:00 01/30/24 15:05 01/30/24 15:05 Temperature Pulse Rate 85 86 Respiratory Rate 15 14 Blood Pressure 79/49 L Pulse Oximetry 98 100 Oxygen Delivery Method Room Air 01/30/24 15:10 01/30/24 15:10 01/30/24 15:15 Temperature Pulse Rate 81 Respiratory Rate 15 Blood Pressure 89/55 L 83/51 L Pulse Oximetry Oxygen Delivery Method 01/30/24 15:15 01/30/24 15:20 01/30/24 15:20 Temperature 96.6 F L 96.8 F L Pulse Rate 83 82 Respiratory Rate 15 14 Blood Pressure 80/51 L Pulse Oximetry 95 95 Oxygen Delivery Method Room Air Room Air 01/30/24 15:26 01/30/24 15:26 01/30/24 15:30 Temperature 97.0 F L 96.8 F L Pulse Rate 81 84 Respiratory Rate 15 16 Blood Pressure 82/51 L Pulse Oximetry 93 100 Oxygen Delivery Method Room Air 01/30/24 15:30 01/30/24 15:35 01/30/24 15:35 Temperature 96.8 F L Pulse Rate 86 Respiratory Rate 16 Blood Pressure 86/54 L 84/53 L Pulse Oximetry 99 Oxygen Delivery Method 01/30/24 15:40 01/30/24 15:40 01/30/24 15:45 Temperature 97.0 F L 97.0 F L Pulse Rate 81 90 Respiratory Rate 15 18 Blood Pressure 88/55 L Pulse Oximetry 99 99 Oxygen Delivery Method 01/30/24 15:45 01/30/24 15:50 01/30/24 15:50 Temperature 97.0 F L Pulse Rate 96 H Respiratory Rate 16 Blood Pressure 89/52 L 99/59 L Pulse Oximetry 100 Oxygen Delivery Method 01/30/24 15:55 01/30/24 15:55 01/30/24 16:00 Temperature 97.2 F L Pulse Rate 92 H Respiratory Rate 16 Blood Pressure 92/54 L 85/53 L Pulse Oximetry 99 Oxygen Delivery Method 01/30/24 16:00 01/30/24 16:05 01/30/24 16:05 Temperature 97.3 F L 97.3 F L Pulse Rate 93 H 97 H Respiratory Rate 16 16 Blood Pressure 87/54 L Pulse Oximetry 98 98 Oxygen Delivery Method Room Air 01/30/24 16:10 01/30/24 16:10 01/30/24 16:15 Temperature 97.5 F L Pulse Rate 97 H Respiratory Rate 17 Blood Pressure 90/50 L 85/54 L Pulse Oximetry 97 Oxygen Delivery Method Room Air 01/30/24 16:15 01/30/24 16:20 01/30/24 16:20 Temperature 97.7 F 97.9 F Pulse Rate 100 H 101 H Respiratory Rate 18 18 Blood Pressure 90/51 L Pulse Oximetry 97 97 Oxygen Delivery Method MDM - Neuro Symptoms/Deficit Lab Data Attestation: I reviewed the patient's lab results. 01/30/24 13:35 01/30/24 15:08 Labs: Lab Results 01/30/24 01/30/24 01/30/24 Range/Units 13:35 15:08 15:13 WBC 11.5 H (4.5-11.0) X10^3/uL RBC 4.01 (4.0-5.2) X10^6/uL Hgb 12.7 (12.0-16.0) g/dL Hct 37.6 (36-46) % MCV 93.6 (80-100) fL MCH 31.5 (26-34) PG MCHC 33.7 (30-36) % RDW 12.5 (11.6-14.8) % Plt Count 316 (150-400) X10^3/uL Neut % (Auto) 69.0 (50-75) % Lymph % (Auto) 21.8 L (25-40) % [place] % (Auto) 8.2 (3-14) % Eos % (Auto) 0.3 L (2-4) % Baso % (Auto) 0.7 (0-2) % Neut # (Auto) 8000 H (1938-4438) /uL Lymph # (Auto) 2500 (4600-6415) /uL [place] # (Auto) 900 (0-900) /uL Eos # (Auto) 0 (0-450) /uL Baso # (Auto) 100 (0-100) /uL Sodium 137 136 L (137-145) mmol/L Potassium 4.4 3.7 (3.4-5.1) mmol/L Chloride 103 113 H (98-107) mmol/L Carbon Dioxide 17 L 13 L (22-32) mmol/L BUN 69 H 63 H (7-17) mg/dL Creatinine 5.66 H 4.43 H (0.52-1.04) mg/dL Estimated GFR 9 L 12 L (>60) mL/min BUN/Creatinine Ratio 12.2 14.2 (6-22) Glucose 100 73 (70-100) mg/dL Calcium 9.2 6.8 L (8.4-10.2) mg/dL Total Bilirubin 1.2 (0.2-1.3) mg/dL AST 49 H (14-36) IU/L ALT 34 (<35) IU/L Alkaline Phosphatase 93 (38-126) U/L Total Protein 8.1 (6.3-8.2) g/dL Albumin 5.0 (3.5-5.0) g/dL Globulin 3.1 (1.7-4.1) g/dL Albumin/Globulin Ratio 1.6 (1.0-2.8) Lipase 81 (23-300) U/L Serum , Qual Negative (Negative) Urine Color Urine Appearance Urine pH (4.5-8.0) Ur Specific [place] (1.000-1.035) Urine Protein (Negative) Urine Glucose (UA) (Negative) g/dL Urine Ketones (NEGATIVE) Urine Occult Blood (Negative) Urine Nitrate (Negative) Urine Bilirubin (NEGATIVE) Ur Bilirubin Confirm (Negative) Urine Urobilinogen (0.2) E.U./dL Ur Leukocyte Esterase (NEGATIVE) Urine RBC (0-5/HPF) Urine WBC (0-5/HPF) Ur Squamous Epith Cells (0-5/HPF) Calcium Oxalate Crystal Urine Bacteria (None) Ur Culture Indicated? Vol Urine Centrifuged Ur Random Sodium 35 (30-90) mmol/L Urine Creatinine 306.47 mg/dL 01/30/24 Range/Units 15:15 WBC (4.5-11.0) X10^3/uL RBC (4.0-5.2) X10^6/uL Hgb (12.0-16.0) g/dL Hct (36-46) % MCV (80-100) fL MCH (26-34) PG MCHC (30-36) % RDW (11.6-14.8) % Plt Count (150-400) X10^3/uL Neut % (Auto) (50-75) % Lymph % (Auto) (25-40) % [place] % (Auto) (3-14) % Eos % (Auto) (2-4) % Baso % (Auto) (0-2) % Neut # (Auto) (8876-2523) /uL Lymph # (Auto) (9537-1847) /uL [place] # (Auto) (0-900) /uL Eos # (Auto) (0-450) /uL Baso # (Auto) (0-100) /uL Sodium (137-145) mmol/L Potassium (3.4-5.1) mmol/L Chloride (98-107) mmol/L Carbon Dioxide (22-32) mmol/L BUN (7-17) mg/dL Creatinine (0.52-1.04) mg/dL Estimated GFR (>60) mL/min BUN/Creatinine Ratio (6-22) Glucose (70-100) mg/dL Calcium (8.4-10.2) mg/dL Total Bilirubin (0.2-1.3) mg/dL AST (14-36) IU/L ALT (<35) IU/L Alkaline Phosphatase (38-126) U/L Total Protein (6.3-8.2) g/dL Albumin (3.5-5.0) g/dL Globulin (1.7-4.1) g/dL Albumin/Globulin Ratio (1.0-2.8) Lipase (23-300) U/L Serum , Qual (Negative) Urine Color Yellow Urine Appearance Cloudy Urine pH 5.0 (4.5-8.0) Ur Specific [place] >=1.030 H (1.000-1.035) Urine Protein 2+ H (Negative) Urine Glucose (UA) Negative (Negative) g/dL Urine Ketones Trace H (NEGATIVE) Urine Occult Blood Negative (Negative) Urine Nitrate Negative (Negative) Urine Bilirubin 1+ H (NEGATIVE) Ur Bilirubin Confirm Negative (Negative) Urine Urobilinogen 1.0 (0.2) E.U./dL Ur Leukocyte Esterase 1+ H (NEGATIVE) Urine RBC None seen (0-5/HPF) Urine WBC 10-30/hpf H (0-5/HPF) Ur Squamous Epith Cells 0-1 /hpf (0-5/HPF) Calcium Oxalate Crystal Few H Urine Bacteria Moderate (10-30) H (None) Ur Culture Indicated? Specimen cultured Vol Urine Centrifuged Low vol <10ml (spun) A Ur Random Sodium (30-90) mmol/L Urine Creatinine mg/dL Imaging Data CT scan - head: Radiologist's Impression: PROCEDURE: CT HEAD/BRAIN WO CON INDICATIONS: Headache/dizziness TECHNIQUE: Noncontrast 4.5 mm thick angled axial sections acquired from the foramen magnum to the vertex, with coronal and sagittal reformats. For radiation dose reduction, the following was used: automated exposure control, adjustment of mA and/or kV according to patient size. COMPARISON: [facility], CT, CT STROKE, 11/17/2021, 16:39. [facility], MR, MR HEAD/BRAIN WO CON, 11/18/2021, 12:05. FINDINGS: Image quality: Diagnostic. CSF spaces: Basal cisterns are patent. No extra-axial fluid collections. Ventricles are normal in size and shape. Brain: No midline shift. No intracranial masses or hemorrhage. Esparza-white matter interface is normal. Skull and face: Calvarium and visualized facial bones are intact, without suspicious lesions. Sinuses: Visualized sinuses and mastoids are clear. IMPRESSION: No acute intracranial pathology. MDM Narrative Medical decision making narrative: Patient arrived somewhat anxious. Tachycardic. Blood pressures have been with a systolic in the 80s and 90s. Initial blood counts show a creatinine that is much worse than normal. After 2 L of fluid repeat BMP shows improvement of her creatinine. Her potassium has been unremarkable. She was producing urine. She denies any urinary tract infection like symptoms. Blood counts are unremarkable. She did become very anxious/agitated after the head CT. She was given Ativan. This caused her to become somewhat sedated but she was responsive and maintaining her airway. She has a FENa of 0.4 indicating prerenal. Given the improvement with the fluids I suspect that this is prerenal/dehydration. She was afebrile. Patient does require admission to the hospital for further hydration. Discussed the case with Dr. Austin who accepts the patient for admission. Patient was sleeping. Discussed the need for admission with the patient's sister who is at bedside. She expressed understanding and agreement with plan. Discharge Plan Departure Patient Disposition: Admitted As Inpatient Clinical Impression: Acute kidney injury, Dehydration Admit Date/Time: 01/30/24 16:24 Admit Provider: Rashad Austin
[2024-01-30 13:42] LABS: Add Manual Diff / Slide Review NO; Basophils Absolute Auto 100 /uL (0-100); Basophils Percent Auto 0.7 % (0-2); Eosinophils Absolute Auto 0 /uL (0-450); Eosinophils Percent Auto 0.3 % (2-4); Hematocrit 37.6 % (36-46); Hemoglobin 12.7 g/dL (12.0-16.0); Lymphocytes Absolute Auto 2500 /uL (1100-4500); Lymphocytes Percent Auto 21.8 % (25-40); Mean Corpuscular HGB Conc 33.7 % (30-36); Mean Corpuscular Hemoglobin 31.5 PG (26-34); Mean Corpuscular Volume 93.6 fL (80-100); Monocytes Absolute Auto 900 /uL (0-900); Monocytes Percent Auto 8.2 % (3-14); Neutrophils Absolute Auto 8000 /uL (1500-7000); Platelet Count 316 X10^3/uL (150-400); Red Blood Cell Count 4.01 X10^6/uL (4.0-5.2); Red Cell Distribution Width 12.5 % (11.6-14.8); White Blood Cell Count 11.5 X10^3/uL (4.5-11.0)
[2024-01-30] MEDS: SODIUM CHLORIDE 0.9% 1,000 ML 1000 ML IV ×2 (13:45→14:31)
--- NOTE | 2024-01-30 13:45 | PC.NURSE ---
Pt reporting severe pressure in right eye, then pressure moves to left eye. Describes seeing white spots, refuses to lay in bed and is sitting up high fowlers position d/t head pressure. Pt hypotensive, refusing 2nd IV placement. Pt sitting up rapidly, laying back, thrashing in bed occasionally. Pt agreeable to taking medications to help calm down.
[2024-01-30 13:57] LABS: Alanine Aminotransferase 34 IU/L (<35); Albumin Globulin Ratio 1.6 (1.0-2.8); Alkaline Phosphatase 93 U/L (38-126); Aspartate Aminotransferase 49 IU/L (14-36); BUN Creatinine Ratio 12.2 (6-22); Bilirubin Total 1.2 mg/dL (0.2-1.3); Blood Urea Nitrogen 69 mg/dL (7-17); Calcium 9.2 mg/dL (8.4-10.2); Carbon Dioxide 17 mmol/L (22-32); Chloride 103 mmol/L (98-107); Estimated Glomerular Filt Rate 9 mL/min (>60); Globulin 3.1 g/dL (1.7-4.1); Glucose 100 mg/dL (70-100); Lipase 81 U/L (23-300); Potassium 4.4 mmol/L (3.4-5.1); Sodium 137 mmol/L (137-145); Total Protein 8.1 g/dL (6.3-8.2)
[2024-01-30 13:58] LABS: HEMOLYSIS 67 (0-50)
[2024-01-30] MEDS: LORazepam 2 MG/ML INJ 1 MG IV (14:16)
[2024-01-30 14:33] LABS: Pregnancy Test Serum,Qual Negative (Negative)
--- NOTE | 2024-01-30 14:35 | PC.NURSE ---
PT thrashing her back up and down on the gurney during IV insertions. Pt required multiple iv attempts prior to successful IV. Pt refused 2nd IV multiple times. Stating this hospital is not helping me, I need to go to [facility]. Pt's sister at bedside assisting in keeping pt calm.
[2024-01-30] MEDS: LACTATED RINGERS 1,000 ML 250 ML IV (14:59)
--- NOTE | 2024-01-30 15:10 | PC.NURSE ---
Dr. Fairbanks at bedside to reassess, goal MAP above 60. Pt responsive to pressure on fingernails. Catheter placed.
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
[2024-01-30 15:26] LABS: Bilirubin Urine UA 1+ (NEGATIVE); Color Urine UA YELLOW; Glucose Urine UA NEGATIVE (Negative); Ketones Urine UA TRACE (NEGATIVE); Leukocyte Esterase Urine UA 1+ (NEGATIVE); Nitrite Urine UA NEGATIVE (Negative); Occult Blood Urine UA NEGATIVE (Negative); Protein Urine UA 2+ (Negative); Specific Gravity Urine UA >=1.030 (1.000-1.035)
[2024-01-30 15:30] LABS: BUN Creatinine Ratio 14.2 (6-22); Blood Urea Nitrogen 63 mg/dL (7-17); Calcium 6.8 mg/dL (8.4-10.2); Carbon Dioxide 13 mmol/L (22-32); Chloride 113 mmol/L (98-107); Estimated Glomerular Filt Rate 12 mL/min (>60); Glucose 73 mg/dL (70-100); HEMOLYSIS < 15 (0-50); Potassium 3.7 mmol/L (3.4-5.1); Sodium 136 mmol/L (137-145)
[2024-01-30 15:30] LABS: Appearance Urine UA CLOUDY
--- NOTE | 2024-01-30 15:30 | PC.NURSE ---
Pt placed on robert hugger with warm blankets. Her sister is back at bedside.
[2024-01-30 15:31] LABS: Ictotest Urine Negative (Negative); Urine Volume Low Vol <10mL (spun)
[2024-01-30 15:35] LABS: Bacteria Urine Moderate (10-30); RBC Urine None Seen (0-5/HPF); Squamous Epithelial Cell Urine 0-1 /HPF (0-5/HPF); WBC Urine 10-30/HPF (0-5/HPF)
[2024-01-30 15:36] LABS: Calcium Oxalate Crystals Urine Few; Culture Indicated Urine Specimen Cultured
[2024-01-30 16:02] LABS: Creatinine Urine Random 306.47 mg/dL; Sodium Urine Random 35 mmol/L (30-90)
--- NOTE | 2024-01-30 16:27 | PC.NURSE ---
Patient's sister Alma (Isa) headed home @ 1637. She wanted to give the staff her number to contact if her sister needs anything. [phone].
--- NOTE | 2024-01-30 17:23 | PM.HP.1 ---
History of Present Illness History of Present Illness Date Patient Seen: 01/30/24 Chief complaint: lightheaded, blurry vision px in rt eye, sob Narrative: From ED provider: Patient is a 43-year-old female who according to her problem list has had issues with methamphetamine abuse. Has also had issues with both hypertension and hypotension. Is here for evaluation of episodes where she states she was getting very lightheaded when she stands up and bends over. Also associated with a headache, blurry vision in her right eye which is not currently happening. Earlier today she would some tingling in her right arm and also earlier today stated that she thought that she was somewhat confused and could not say the words she was thinking. No chest pain. No shortness of breath. She has not had much to eat or drink over the past couple days because of issues with money. Did eat this morning. S: Upon transfer to the CCU, the patient is quite sedated from Ativan. She can arouse and briefly say her name and that she was in [place] but then goes back to sleep. She can not participate in any history or review of systems. REPLACED BY [facility] Medical History Methamphetamine use Psoriasis ENCOUNTER FOR INSERTION OF INTRAUTERINE CONTRACEPTIVE DEVICE High risk HPV infection Surgical History History of cervical LEEP biopsy affecting care of mother, antepartum Family History Mother Diabetes mellitus Hyperkalemia Father Medical history unknown Grandfather Myocardial infarction Social History household members: significant other Smoking Status: Current every day smoker Meds Home Medications and Allergies Home Medications Medication Instructions Recorded Confirmed Type amlodipine 5 mg tablet 5 mg PO DAILY 01/30/24 01/30/24 History lisinopril 20 mg tablet 20 mg PO DAILY 01/30/24 01/30/24 History Allergies Allergy/AdvReac Type Severity Reaction Status Date / Time hydrocodone Allergy Verified 01/30/24 13:17 Penicillins Allergy Verified 01/30/24 13:17 Review of Systems Review of Systems Narrative: Not obtainable due to sedation. Exam Vital Signs (past 8 hours): - 01/30/24 13:12 01/30/24 13:12 01/30/24 13:17 Temperature 97.9 F Pulse Rate 82 82 Respiratory Rate 17 Blood Pressure 94/66 94/66 Pulse Oximetry 90 L 98 Oxygen Delivery Method Room Air 01/30/24 13:30 01/30/24 13:53 01/30/24 13:53 Temperature Pulse Rate 90 99 H Respiratory Rate 15 24 Blood Pressure 91/50 L Pulse Oximetry 100 100 Oxygen Delivery Method 01/30/24 14:00 01/30/24 14:05 01/30/24 14:05 Temperature Pulse Rate 91 H 95 H Respiratory Rate 23 30 H Blood Pressure 78/47 L Pulse Oximetry 100 100 Oxygen Delivery Method Room Air 01/30/24 14:10 01/30/24 14:10 01/30/24 14:15 Temperature Pulse Rate 98 H Respiratory Rate 36 H Blood Pressure 91/54 L 85/53 L Pulse Oximetry 99 Oxygen Delivery Method 01/30/24 14:15 01/30/24 14:20 01/30/24 14:20 Temperature Pulse Rate 98 H 98 H Respiratory Rate 34 H 41 H Blood Pressure 88/54 L Pulse Oximetry 100 100 Oxygen Delivery Method Room Air 01/30/24 14:25 01/30/24 14:25 01/30/24 14:30 Temperature Pulse Rate 101 H Respiratory Rate 24 Blood Pressure 86/52 L 83/51 L Pulse Oximetry 99 Oxygen Delivery Method 01/30/24 14:30 01/30/24 14:35 01/30/24 14:35 Temperature Pulse Rate 96 H 97 H Respiratory Rate 19 19 Blood Pressure 89/52 L Pulse Oximetry 100 98 Oxygen Delivery Method 01/30/24 14:40 01/30/24 14:40 01/30/24 14:45 Temperature Pulse Rate 96 H Respiratory Rate 17 Blood Pressure 87/52 L 85/50 L Pulse Oximetry 99 Oxygen Delivery Method Room Air 01/30/24 14:45 01/30/24 14:50 01/30/24 14:50 Temperature Pulse Rate 94 H 95 H Respiratory Rate 16 17 Blood Pressure 82/52 L Pulse Oximetry 99 99 Oxygen Delivery Method Room Air 01/30/24 14:55 01/30/24 14:55 01/30/24 15:00 Temperature Pulse Rate 90 Respiratory Rate 18 Blood Pressure 87/55 L 84/48 L Pulse Oximetry 99 Oxygen Delivery Method 01/30/24 15:00 01/30/24 15:05 01/30/24 15:05 Temperature Pulse Rate 85 86 Respiratory Rate 15 14 Blood Pressure 79/49 L Pulse Oximetry 98 100 Oxygen Delivery Method Room Air 01/30/24 15:10 01/30/24 15:10 01/30/24 15:15 Temperature Pulse Rate 81 Respiratory Rate 15 Blood Pressure 89/55 L 83/51 L Pulse Oximetry Oxygen Delivery Method 01/30/24 15:15 01/30/24 15:20 01/30/24 15:20 Temperature 96.6 F L 96.8 F L Pulse Rate 83 82 Respiratory Rate 15 14 Blood Pressure 80/51 L Pulse Oximetry 95 95 Oxygen Delivery Method Room Air Room Air 01/30/24 15:26 01/30/24 15:26 01/30/24 15:30 Temperature 97.0 F L 96.8 F L Pulse Rate 81 84 Respiratory Rate 15 16 Blood Pressure 82/51 L Pulse Oximetry 93 100 Oxygen Delivery Method Room Air 01/30/24 15:30 01/30/24 15:35 01/30/24 15:35 Temperature 96.8 F L Pulse Rate 86 Respiratory Rate 16 Blood Pressure 86/54 L 84/53 L Pulse Oximetry 99 Oxygen Delivery Method 01/30/24 15:40 01/30/24 15:40 01/30/24 15:45 Temperature 97.0 F L 97.0 F L Pulse Rate 81 90 Respiratory Rate 15 18 Blood Pressure 88/55 L Pulse Oximetry 99 99 Oxygen Delivery Method 01/30/24 15:45 01/30/24 15:50 01/30/24 15:50 Temperature 97.0 F L Pulse Rate 96 H Respiratory Rate 16 Blood Pressure 89/52 L 99/59 L Pulse Oximetry 100 Oxygen Delivery Method 01/30/24 15:55 01/30/24 15:55 01/30/24 16:00 Temperature 97.2 F L Pulse Rate 92 H Respiratory Rate 16 Blood Pressure 92/54 L 85/53 L Pulse Oximetry 99 Oxygen Delivery Method 01/30/24 16:00 01/30/24 16:05 01/30/24 16:05 Temperature 97.3 F L 97.3 F L Pulse Rate 93 H 97 H Respiratory Rate 16 16 Blood Pressure 87/54 L Pulse Oximetry 98 98 Oxygen Delivery Method Room Air 01/30/24 16:10 01/30/24 16:10 01/30/24 16:15 Temperature 97.5 F L Pulse Rate 97 H Respiratory Rate 17 Blood Pressure 90/50 L 85/54 L Pulse Oximetry 97 Oxygen Delivery Method Room Air 01/30/24 16:15 01/30/24 16:20 01/30/24 16:20 Temperature 97.7 F 97.9 F Pulse Rate 100 H 101 H Respiratory Rate 18 18 Blood Pressure 90/51 L Pulse Oximetry 97 97 Oxygen Delivery Method 01/30/24 16:25 01/30/24 16:25 01/30/24 16:30 Temperature 98.1 F Pulse Rate 102 H Respiratory Rate 18 Blood Pressure 90/51 L 87/50 L Pulse Oximetry 97 Oxygen Delivery Method 01/30/24 16:30 01/30/24 16:35 01/30/24 16:35 Temperature 98.1 F 98.2 F Pulse Rate 102 H 101 H Respiratory Rate 18 18 Blood Pressure 90/55 L Pulse Oximetry 97 97 Oxygen Delivery Method 01/30/24 16:40 01/30/24 16:40 01/30/24 16:45 Temperature 98.4 F Pulse Rate 102 H Respiratory Rate 18 Blood Pressure 92/52 L 92/50 L Pulse Oximetry 97 Oxygen Delivery Method 01/30/24 16:45 01/30/24 16:50 01/30/24 16:50 Temperature 98.4 F 98.6 F Pulse Rate 102 H 101 H Respiratory Rate 19 18 Blood Pressure 98/54 L Pulse Oximetry 97 97 Oxygen Delivery Method Room Air Oxygen Delivery Method Room Air Narrative Exam Narrative: NAD, somnolent and arousable for brief answers. Very underweight. Normocephalic skull, EOMI, anicteric sclera, symmetric pupils. Oropharynx unremarkable, no droop. Neck supple, midline trachea, no adenopathy. Lungs clear, normal rate and effort. Heart regular, no murmur gallop or rub. Abdomen is soft, non distended and non tender. Extremities are free of edema. Skin is free of rash or lesions. Joints are not swollen or deformed. Judgment can not be assessed. Objective Imaging CT scan - head: Radiologist's impression: No acute intracranial pathology. Labs 01/30/24 13:35 01/30/24 15:08 Labs: Laboratory Results - last 24 hr 01/30/24 01/30/2401/29/24 13:35 15:08 15:13 WBC 11.5 H RBC 4.01 Hgb 12.7 Hct 37.6 MCV 93.6 MCH 31.5 MCHC 33.7 RDW 12.5 Plt Count 316 Neut % (Auto) 69.0 Lymph % (Auto) 21.8 L [place] % (Auto) 8.2 Eos % (Auto) 0.3 L Baso % (Auto) 0.7 Neut # (Auto) 8000 H Lymph # (Auto) 2500 [place] # (Auto) 900 Eos # (Auto) 0 Baso # (Auto) 100 Sodium 137 136 L Potassium 4.4 3.7 Chloride 103 113 H Carbon Dioxide 17 L 13 L BUN 69 H 63 H Creatinine 5.66 H 4.43 H Estimated GFR 9 L 12 L BUN/Creatinine Ratio 12.2 14.2 Glucose 100 73 Calcium 9.2 6.8 L Total Bilirubin 1.2 AST 49 H ALT 34 Alkaline Phosphatase 93 Total Protein 8.1 Albumin 5.0 Globulin 3.1 Albumin/Globulin Ratio 1.6 Lipase 81 Serum , Qual Negative Urine Color Urine Appearance Urine pH Ur Specific [place] Urine Protein Urine Glucose (UA) Urine Ketones Urine Occult Blood Urine Nitrate Urine Bilirubin Ur Bilirubin Confirm Urine Urobilinogen Ur Leukocyte Esterase Urine RBC Urine WBC Ur Squamous Epith Cells Calcium Oxalate Crystal Urine Bacteria Ur Culture Indicated? Vol Urine Centrifuged Ur Random Sodium 35 Urine Creatinine 306.47 01/30/24 15:15 WBC RBC Hgb Hct MCV MCH MCHC RDW Plt Count Neut % (Auto) Lymph % (Auto) [place] % (Auto) Eos % (Auto) Baso % (Auto) Neut # (Auto) Lymph # (Auto) [place] # (Auto) Eos # (Auto) Baso # (Auto) Sodium Potassium Chloride Carbon Dioxide BUN Creatinine Estimated GFR BUN/Creatinine Ratio Glucose Calcium Total Bilirubin AST ALT Alkaline Phosphatase Total Protein Albumin Globulin Albumin/Globulin Ratio Lipase Serum , Qual Urine Color Yellow Urine Appearance Cloudy Urine pH 5.0 Ur Specific [place] >=1.030 H Urine Protein 2+ H Urine Glucose (UA) Negative Urine Ketones Trace H Urine Occult Blood Negative Urine Nitrate Negative Urine Bilirubin 1+ H Ur Bilirubin Confirm Negative Urine Urobilinogen 1.0 Ur Leukocyte Esterase 1+ H Urine RBC None seen Urine WBC 10-30/hpf H Ur Squamous Epith Cells 0-1 /hpf Calcium Oxalate Crystal Few H Urine Bacteria Moderate (10-30) H Ur Culture Indicated? Specimen cultured Vol Urine Centrifuged Low vol <10ml (spun) A Ur Random Sodium Urine Creatinine Assessment & Plan Assessment & Plan narrative: 1. Severe acute kidney injury, present on admission and active. 2. Volume depletion, present on admission and active. 3. Possible urinary tract infection, present on admission and active. 4. Methamphetamine abuse, present on admission and active. 5. Anxiety, present on admission and active. Plan: -IV fluids at 1:50 a.m. an hour, and monitor renal function q.6 hours. -monitor urine output. -empiric antibiotics for UTI with ceftriaxone. -monitor blood pressure, hold lisinopril. Resume amlodipine when pressures normalized. -monitor low blood pressures in the ICU. -maintain map over 65. -monitor mental status. -Ativan as needed for agitation and anxiety. There is a 2 midnight expectation for hospital services. She was admitted to inpatient status. She was full resuscitation. Time-Based Coding :: [TOTAL MINUTES] spent with patient and on the chart (including review of chart, obtaining history, exam, reviewing outside data, placing orders, documenting exam and treatment plan, and counseling patient) on [DATE].
[2024-01-30 18:14] LABS: Ur Creatinine Normal (Normal); Ur Specific Gravity Normal (Normal); Urine Cocaine Negative (Negative); Urine Tetrahydrocannabinol Negative (Negative); Urine pH Normal (Normal)
[2024-01-30 18:15] LABS: UR Morphine/Opiate cutoff 300 Negative (Negative); Urine Amphetamines Positive (Negative); Urine Barbiturates Negative (Negative); Urine Benzodiazepines Negative (Negative); Urine MDMA Positive (Negative); Urine Methadone Negative (Negative); Urine Methamphetamines Positive (Negative); Urine Oxycodone Negative (Negative); Urine Phencyclidine Negative (Negative); Urine Tricyclic Antidepressant Negative (Negative)
[2024-01-30 18:31] LABS: Lactate (Lactic Acid) 1.1 mmol/L (0.7-2.1)
[2024-01-30 18:32] LABS: BUN Creatinine Ratio 14.6 (6-22); Blood Urea Nitrogen 62 mg/dL (7-17); Calcium 7.7 mg/dL (8.4-10.2); Carbon Dioxide 16 mmol/L (22-32); Chloride 111 mmol/L (98-107); Estimated Glomerular Filt Rate 13 mL/min (>60); Glucose 75 mg/dL (70-100); HEMOLYSIS < 15 (0-50); Potassium 4.5 mmol/L (3.4-5.1); Sodium 137 mmol/L (137-145)
[2024-01-30] MEDS: LACTATED RINGERS 1,000 ML 150 ML IV (18:37)
[2024-01-30 19:29] LABS: MRSA (Nasal) PCR NOT DETECTED (Not Detect)
--- NOTE | 2024-01-30 20:42 | PC.NURSE ---
Patient lying in bed, responds to voice with moaning, unable to open eyes, BP 99/59/ HR 72, SpO2 100% on RA, IVF infusing at 150ml/hr with minimal urine output.
--- NOTE | 2024-01-30 21:09 | PC.NURSE ---
float admission 2100 pt continues to be somulent and unable to participate in admission assessment. will complete once pt is able.
[2024-01-30] MEDS: SODIUM CHLORIDE 0.9% FLUSH 10 ML IV (21:24)
[2024-01-31] VITALS (40 sets, daily range): BP systolic 87–142; BP diastolic 53–93; PULSE 54–106; RESP 10–24; TEMP 36.1–37.1; O2SAT 93–100
[2024-01-31] MEDS: LACTATED RINGERS 1,000 ML 150 ML IV (01:08)
[2024-01-31 05:50] LABS: Add Manual Diff / Slide Review NO; Basophils Absolute Auto 100 /uL (0-100); Basophils Percent Auto 1.2 % (0-2); Eosinophils Absolute Auto 200 /uL (0-450); Eosinophils Percent Auto 2.3 % (2-4); Hematocrit 30.6 % (36-46); Hemoglobin 10.5 g/dL (12.0-16.0); Lymphocytes Absolute Auto 2000 /uL (1100-4500); Lymphocytes Percent Auto 27.6 % (25-40); Mean Corpuscular HGB Conc 34.3 % (30-36); Mean Corpuscular Hemoglobin 32.5 PG (26-34); Mean Corpuscular Volume 94.9 fL (80-100); Monocytes Absolute Auto 600 /uL (0-900); Monocytes Percent Auto 8.2 % (3-14); Neutrophils Absolute Auto 4400 /uL (1500-7000); Neutrophils Percent Auto 60.7 % (50-75); Platelet Count 203 X10^3/uL (150-400); Red Blood Cell Count 3.23 X10^6/uL (4.0-5.2); Red Cell Distribution Width 12.3 % (11.6-14.8); White Blood Cell Count 7.3 X10^3/uL (4.5-11.0)
[2024-01-31 05:57] LABS: BUN Creatinine Ratio 21.4 (6-22); Blood Urea Nitrogen 57 mg/dL (7-17); Calcium 7.5 mg/dL (8.4-10.2); Carbon Dioxide 17 mmol/L (22-32); Chloride 112 mmol/L (98-107); Estimated Glomerular Filt Rate 22 mL/min (>60); Glucose 65 mg/dL (70-100); HEMOLYSIS < 15 (0-50); Potassium 4.1 mmol/L (3.4-5.1); Sodium 136 mmol/L (137-145)
--- NOTE | 2024-01-31 07:38 | P.PN_ITS ---
Subjective Subjective Interval history: She feels better today, more awake. She would like to discharge as soon as possible. Her creatinine is 2.7, much improved. Her urine output is improved as well. Exam Vital Signs (past 8 hours): - 01/31/24 00:00 01/31/24 00:00 01/31/24 00:30 Temperature 97.0 F L Pulse Rate 72 Respiratory Rate 16 Blood Pressure 99/61 95/56 L Pulse Oximetry 100 Oxygen Delivery Method Oxygen Flow Rate 01/31/24 00:30 01/31/24 01:00 01/31/24 01:00 Temperature 97.2 F L 97.2 F L Pulse Rate 69 70 Respiratory Rate 18 17 Blood Pressure 87/53 L Pulse Oximetry 100 99 Oxygen Delivery Method Oxygen Flow Rate 0 0 01/31/24 01:30 01/31/24 01:30 01/31/24 02:00 Temperature 97.2 F L Pulse Rate 66 Respiratory Rate 15 Blood Pressure 101/58 L 101/65 Pulse Oximetry 98 Oxygen Delivery Method Oxygen Flow Rate 01/31/24 02:00 01/31/24 02:30 01/31/24 02:30 Temperature 97.3 F L 97.3 F L Pulse Rate 80 74 Respiratory Rate 19 14 Blood Pressure 105/70 Pulse Oximetry 98 100 Oxygen Delivery Method Oxygen Flow Rate 0 01/31/24 03:00 01/31/24 03:00 01/31/24 03:30 Temperature 97.3 F L 97.3 F L Pulse Rate 72 67 Respiratory Rate 17 16 Blood Pressure 90/54 L Pulse Oximetry 98 99 Oxygen Delivery Method Oxygen Flow Rate 0 01/31/24 03:30 01/31/24 04:00 01/31/24 04:00 Temperature 97.3 F L Pulse Rate 79 Respiratory Rate 20 Blood Pressure 98/66 107/78 Pulse Oximetry 98 Oxygen Delivery Method Oxygen Flow Rate 01/31/24 04:30 01/31/24 04:30 01/31/24 05:00 Temperature 97.5 F L 97.5 F L Pulse Rate 64 54 L Respiratory Rate 16 16 Blood Pressure 98/56 L Pulse Oximetry 99 99 Oxygen Delivery Method Oxygen Flow Rate 0 0 01/31/24 05:00 01/31/24 05:30 01/31/24 05:30 Temperature 97.5 F L Pulse Rate 89 Respiratory Rate 22 Blood Pressure 98/55 L 130/84 Pulse Oximetry 97 Oxygen Delivery Method Oxygen Flow Rate 01/31/24 05:30 01/31/24 06:00 01/31/24 06:00 Temperature 97.2 F L Pulse Rate 64 Respiratory Rate 12 Blood Pressure 102/74 Pulse Oximetry 99 Oxygen Delivery Method Room Air Oxygen Flow Rate 0 Oxygen Delivery Method Room Air Oxygen Flow Rate 0 Narrative Exam Narrative: NAD, alert and oriented. Fluent speech. Extremely underweight. Lungs are clear, normal rate and effort. Heart is regular, no murmur gallop or rub. Abdomen is soft, non distended. Extremities are free of edema. Objective Labs 01/31/24 05:17 01/31/24 05:17 Labs: Laboratory Results - last 24 hr 01/30/24 01/30/24 01/30/24 13:35 15:08 15:13 WBC 11.5 H RBC 4.01 Hgb 12.7 Hct 37.6 MCV 93.6 MCH 31.5 MCHC 33.7 RDW 12.5 Plt Count 316 Neut % (Auto) 69.0 Lymph % (Auto) 21.8 L [place] % (Auto) 8.2 Eos % (Auto) 0.3 L Baso % (Auto) 0.7 Neut # (Auto) 8000 H Lymph # (Auto) 2500 [place] # (Auto) 900 Eos # (Auto) 0 Baso # (Auto) 100 Sodium 137 136 L Potassium 4.4 3.7 Chloride 103 113 H Carbon Dioxide 17 L 13 L BUN 69 H 63 H Creatinine 5.66 H 4.43 H Estimated GFR 9 L 12 L BUN/Creatinine Ratio 12.2 14.2 Glucose 100 73 Lactate Calcium 9.2 6.8 L Total Bilirubin 1.2 AST 49 H ALT 34 Alkaline Phosphatase 93 Total Protein 8.1 Albumin 5.0 Globulin 3.1 Albumin/Globulin Ratio 1.6 Lipase 81 Serum , Qual Negative Urine Color Urine Appearance Urine pH Ur Specific [place] Urine Protein Urine Glucose (UA) Urine Ketones Urine Occult Blood Urine Nitrate Urine Bilirubin Ur Bilirubin Confirm Urine Urobilinogen Ur Leukocyte Esterase Urine RBC Urine WBC Ur Squamous Epith Cells Calcium Oxalate Crystal Urine Bacteria Ur Culture Indicated? Vol Urine Centrifuged Ur Random Sodium 35 Urine Creatinine 306.47 Nasal Screen MRSA (PCR) U Opiates 300ng/mL cut Ur Oxycodone Screen Urine Methadone Screen Ur Barbiturates Screen U Tricyclic Antidepress Ur Phencyclidine Scrn Ur Amphetamines Screen U Methamphetamines Scrn Ur MDMA Scrn (Ecstasy) U Benzodiazepines Scrn Urine Cocaine Screen U Marijuana (THC) Screen Urine Specific [place] Ur Creatinine 01/30/24 01/30/24 01/30/24 15:15 17:35 17:48 WBC RBC Hgb Hct MCV MCH MCHC RDW Plt Count Neut % (Auto) Lymph % (Auto) [place] % (Auto) Eos % (Auto) Baso % (Auto) Neut # (Auto) Lymph # (Auto) [place] # (Auto) Eos # (Auto) Baso # (Auto) Sodium Potassium Chloride Carbon Dioxide BUN Creatinine Estimated GFR BUN/Creatinine Ratio Glucose Lactate Calcium Total Bilirubin AST ALT Alkaline Phosphatase Total Protein Albumin Globulin Albumin/Globulin Ratio Lipase Serum , Qual Urine Color Yellow Urine Appearance Cloudy Urine pH 5.0 Normal Ur Specific [place] >=1.030 H Urine Protein 2+ H Urine Glucose (UA) Negative Urine Ketones Trace H Urine Occult Blood Negative Urine Nitrate Negative Urine Bilirubin 1+ H Ur Bilirubin Confirm Negative Urine Urobilinogen 1.0 Ur Leukocyte Esterase 1+ H Urine RBC None seen Urine WBC 10-30/hpf H Ur Squamous Epith Cells 0-1 /hpf Calcium Oxalate Crystal Few H Urine Bacteria Moderate (10-30) H Ur Culture Indicated? Specimen cultured Vol Urine Centrifuged Low vol <10ml (spun) A Ur Random Sodium Urine Creatinine Nasal Screen MRSA (PCR) Not detected U Opiates 300ng/mL cut Negative Ur Oxycodone Screen Negative Urine Methadone Screen Negative Ur Barbiturates Screen Negative U Tricyclic Antidepress Negative Ur Phencyclidine Scrn Negative Ur Amphetamines Screen Positive H U Methamphetamines Scrn Positive H Ur MDMA Scrn (Ecstasy) Positive H U Benzodiazepines Scrn Negative Urine Cocaine Screen Negative U Marijuana (THC) Screen Negative Urine Specific [place] Normal Ur Creatinine Normal 01/30/24 01/31/24 18:10 05:17 WBC 7.3 RBC 3.23 L Hgb 10.5 L Hct 30.6 L MCV 94.9 MCH 32.5 MCHC 34.3 RDW 12.3 Plt Count 203 Neut % (Auto) 60.7 Lymph % (Auto) 27.6 [place] % (Auto) 8.2 Eos % (Auto) 2.3 Baso % (Auto) 1.2 Neut # (Auto) 4400 Lymph # (Auto) 2000 [place] # (Auto) 600 Eos # (Auto) 200 Baso # (Auto) 100 Sodium 137 136 L Potassium 4.5 4.1 Chloride 111 H 112 H Carbon Dioxide 16 L 17 L BUN 62 H 57 H Creatinine 4.25 H 2.66 H Estimated GFR 13 L 22 L BUN/Creatinine Ratio 14.6 21.4 Glucose 75 65 L Lactate 1.1 Calcium 7.7 L 7.5 L Total Bilirubin AST ALT Alkaline Phosphatase Total Protein Albumin Globulin Albumin/Globulin Ratio Lipase Serum , Qual Urine Color Urine Appearance Urine pH Ur Specific [place] Urine Protein Urine Glucose (UA) Urine Ketones Urine Occult Blood Urine Nitrate Urine Bilirubin Ur Bilirubin Confirm Urine Urobilinogen Ur Leukocyte Esterase Urine RBC Urine WBC Ur Squamous Epith Cells Calcium Oxalate Crystal Urine Bacteria Ur Culture Indicated? Vol Urine Centrifuged Ur Random Sodium Urine Creatinine Nasal Screen MRSA (PCR) U Opiates 300ng/mL cut Ur Oxycodone Screen Urine Methadone Screen Ur Barbiturates Screen U Tricyclic Antidepress Ur Phencyclidine Scrn Ur Amphetamines Screen U Methamphetamines Scrn Ur MDMA Scrn (Ecstasy) U Benzodiazepines Scrn Urine Cocaine Screen U Marijuana (THC) Screen Urine Specific [place] Ur Creatinine PFSH Medical History Methamphetamine use Psoriasis ENCOUNTER FOR INSERTION OF INTRAUTERINE CONTRACEPTIVE DEVICE High risk HPV infection Surgical History History of cervical LEEP biopsy affecting care of mother, antepartum Family History Mother Diabetes mellitus Hyperkalemia Father Medical history unknown Grandfather Myocardial infarction Social History household members: significant other Smoking Status: Current every day smoker Assessment & Plan Assessment & Plan narrative: 1. Severe acute kidney injury, present on admission and active. 2. Volume depletion, present on admission and active. 3. Possible urinary tract infection, present on admission and active. 4. Methamphetamine abuse, present on admission and active. 5. Anxiety, present on admission and active. Plan: -continue IV fluids, we will change to D5 LR for hypoglycemia and encourage oral intake. -out of bed, up to chair. -repeat BMP at 3:00 p.m. today. She was clinically improving. There is a 2 midnight expectation for hospital services. She was admitted to inpatient status. Time-Based Coding :: 30 min spent with patient and on the chart (including review of chart, obtaining history, exam, reviewing outside data, placing orders, documenting exam and treatment plan, and counseling patient) on 01/31/2024.
[2024-01-31] MEDS: DEXTROSE 5%-LACTATED RINGERS 1,000 ML 150 ML IV ×3 (08:03→21:10)
--- NOTE | 2024-01-31 14:00 | PC.NURSE ---
Pt requesting to leave against medical advice. Provider notified. Labs requested early. Pt ambulating in room SBA, voiding in BR. Pt friend arrived. Pt reporting, I'll stay now. Provider notified. Care ongoing.
[2024-01-31 14:45] LABS: BUN Creatinine Ratio 28.7 (6-22); Blood Urea Nitrogen 47 mg/dL (7-17); Calcium 7.8 mg/dL (8.4-10.2); Carbon Dioxide 20 mmol/L (22-32); Chloride 110 mmol/L (98-107); Estimated Glomerular Filt Rate 39 mL/min (>60); Glucose 134 mg/dL (70-100); HEMOLYSIS < 15 (0-50); Potassium 3.9 mmol/L (3.4-5.1); Sodium 136 mmol/L (137-145)
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
[2024-01-31] MEDS: SODIUM CHLORIDE 0.9% FLUSH 10 ML IV (21:10)
[2024-02-01 03:30] VITALS: BP 133/85; PULSE 77; RESP 12; TEMP 36.6; O2SAT 100
[2024-02-01] MEDS: DEXTROSE 5%-LACTATED RINGERS 1,000 ML 150 ML IV (03:47)
[2024-02-01 06:05] LABS: Add Manual Diff / Slide Review NO; Basophils Absolute Auto 0 /uL (0-100); Basophils Percent Auto 0.7 % (0-2); Eosinophils Absolute Auto 100 /uL (0-450); Hematocrit 34.3 % (36-46); Hemoglobin 11.4 g/dL (12.0-16.0); Lymphocytes Absolute Auto 1600 /uL (1100-4500); Lymphocytes Percent Auto 27.8 % (25-40); Mean Corpuscular HGB Conc 33.2 % (30-36); Mean Corpuscular Hemoglobin 31.5 PG (26-34); Mean Corpuscular Volume 94.9 fL (80-100); Monocytes Absolute Auto 500 /uL (0-900); Monocytes Percent Auto 7.8 % (3-14); Neutrophils Absolute Auto 3600 /uL (1500-7000); Neutrophils Percent Auto 61.7 % (50-75); Platelet Count 213 X10^3/uL (150-400); Red Blood Cell Count 3.62 X10^6/uL (4.0-5.2); Red Cell Distribution Width 12.4 % (11.6-14.8); White Blood Cell Count 5.9 X10^3/uL (4.5-11.0)
[2024-02-01 06:31] LABS: BUN Creatinine Ratio 28.3 (6-22); Blood Urea Nitrogen 28 mg/dL (7-17); Carbon Dioxide 25 mmol/L (22-32); Chloride 111 mmol/L (98-107); Estimated Glomerular Filt Rate > 60 mL/min (>60); Glucose 109 mg/dL (70-100); HEMOLYSIS < 15 (0-50); Potassium 3.9 mmol/L (3.4-5.1); Sodium 139 mmol/L (137-145)
[2024-02-01 08:00] VITALS: BP 142/85; PULSE 76; RESP 20; TEMP 36.7; O2SAT 98
--- NOTE | 2024-02-01 10:18 | CM.DPNOTE ---
Addendum entered by Naye Campos, MARISOL 02/01/24 11:31: Per RN report, pt swearing at staff, threw phone in room, and then walked out after receiving dc paperwork. no further CM needs at this time SL Addendum entered by Naye Campos, MARISOL 02/01/24 11:06: Per RN, pt will be discharged today. ONCOLOGY ACCOUNT SPECIALIST attempted social work intervention. Gave pt packet of housing, drug OP/INPT resources/recovery, financial services technician, and MH resources. Pt unsure if she is going to dc to friend in [place], mom's house here in [place], or with partner. Pt reported normally she says in her van with bf but did not wish to report to this ONCOLOGY ACCOUNT SPECIALIST its general location. I don't know where it normally is at.....it could be towed by now. Pt started pacing and taking off clothes and attempted to remove IV. ONCOLOGY ACCOUNT SPECIALIST left room and notified [employer] LAYER, entered room and removed IV. ONCOLOGY ACCOUNT SPECIALIST attempted again to complete social work intervention, pt got up mid sentence and went into room in bathroom and closed door. P: pt to dc home later today. Social work resources provided to best of ability. transport plan unknown. may need Medicaid transport SL Original Note: DCP note ONCOLOGY ACCOUNT SPECIALIST reviewed EMR. Per hospitalist in morning rounds, potential to dc later today. ONCOLOGY ACCOUNT SPECIALIST attempted bedside assessment. Pt unreceptive to social work intervention at this time. Asked this ONCOLOGY ACCOUNT SPECIALIST to leave. I just want to sleep. I don't want to talk to you. Just leave me alone let me sleep. P: likely dc home later today. ONCOLOGY ACCOUNT SPECIALIST will follow as able. Consider herb [employer] hospitality services manager referral. Naye Campos, MARISOL
--- NOTE | 2024-02-01 10:19 | DIET.CONS ---
Dietary Consultation Note Admission Date: 01/30/2024 16:24 Assessment: 43 y F admitted for ZOË, PMH of methamphetamine use. Nutrition consulted for difficulty w/ resources goes through periods of malnutrition. Nutrition screened for low MNA and BMI. Attempted visit w/ pt. Pt says she would like to sleep. Will attempt visit tomorrow for full assessment. Per [facility] note, pt reports struggling with food security. Ht: 167.64 cm Wt: 52 kg, 45 kg upon admission (01/29) BMI: 16.0 UBW: 45.813 kg on 03/16/23 Last BM: 01/31/24 (01/31/24 14:00) MNA: 5 James Score: 23 Diet: 01/30/24 Dinner General (Regular) Diet Diet Modifications: Food Texture: Level 7 - Regular Liquid Consistency: Level 0 - Thin Nutrition Percent Meal Consumed 10 02/01/24 09:18 Percent Meal Consumed 100% 01/31/24 14:00 Percent Meal Consumed 100% 01/31/24 12:00 Labs: RBC 3.62 X10^6/uL (4.0-5.2) L 02/01/24 05:55 Hgb 11.4 g/dL (12.0-16.0) L 02/01/24 05:55 Hct 34.3 % (36-46) L 02/01/24 05:55 Creatinine 0.99 mg/dL (0.52-1.04) 02/01/24 05:55 Lactate 1.1 mmol/L (0.7-2.1) 01/30/24 18:10 Nutrition Diagnosis: Underweight r/t social/environmental causes aeb BMI 16, pt report of difficulty with food security at triage assessment Interventions: 1. Monitor po intakes and supplement w/ ons as needed Monitoring/Evaluations: f/u 1 day Electronically Signed by: Catrachita Mendez 02/01/24 10:19 Clinical Dietitian [address] [address]
--- NOTE | 2024-02-01 10:41 | PM.DS.1 ---
History of Present Illness History of Present Illness Chief complaint: lightheaded, blurry vision px in rt eye, sob Narrative: From ED provider: Patient is a 43-year-old female who according to her problem list has had issues with methamphetamine abuse. Has also had issues with both hypertension and hypotension. Is here for evaluation of episodes where she states she was getting very lightheaded when she stands up and bends over. Also associated with a headache, blurry vision in her right eye which is not currently happening. Earlier today she would some tingling in her right arm and also earlier today stated that she thought that she was somewhat confused and could not say the words she was thinking. No chest pain. No shortness of breath. She has not had much to eat or drink over the past couple days because of issues with money. Did eat this morning. S: Upon transfer to the CCU, the patient is quite sedated from Ativan. She can arouse and briefly say her name and that she was in [place] but then goes back to sleep. She can not participate in any history or review of systems. Discharge Providers Provider Date of admission: 01/30/24 16:24 Discharge Date: 02/01/24 Primary care physician: Doctor Charlie MD Consults: 01/30/24 13:20 Consult to [facility] [place] Database Specialist Stat Comment: Database Specialist Consult needed for:: Homeless Substance abuse 01/31/24 12:29 Consult to Dietitian, Adult Routine Comment: Reason For Exam: due to resources goes through periods of malnutrit Consult to [facility] [place] Database Specialist Routine Comment: Database Specialist Consult needed for:: Homeless Has no money Substance abuse Discharge provider: Rashad Austin MD Summary Hospital Course Discharge Diagnosis: 1. Severe acute kidney injury, present on admission and active. 2. Volume depletion, present on admission and active. 3. Possible urinary tract infection, present on admission and active. 4. Methamphetamine abuse, present on admission and active. 5. Anxiety, present on admission and active. Hospital Course: She was admitted to the when treated with IV fluids. She was felt to be extremely volume depleted. Her creatinine improved and then normalized after being rehydrated. She would threatened to leave against medical advice on the but ultimately stayed until the and her creatinine was completely normal on the morning of discharge. Her mother visited her before she was able to leave the hospital. She was advised to drink a lot of fluids and understands the etiology of her kidney issues and is also urged to have close follow up. Status at Discharge Cognitive/behavioral status at discharge: oriented Functional status at discharge: independent ambulation Overall status at discharge: patient is back to baseline Time Spent with Patient Time spent: Greater than 30 minutes Exam Vital Signs (past 8 hours): - 02/01/24 03:30 02/01/24 07:00 02/01/24 08:00 Temperature 97.9 F 98.1 F Pulse Rate 77 76 Respiratory Rate 12 20 Blood Pressure 133/85 142/85 H Pulse Oximetry 100 98 Oxygen Delivery Method Room Air Oxygen Flow Rate 0 0 Oxygen Delivery Method Room Air Oxygen Flow Rate 0 Narrative Exam Narrative: NAD, alert and oriented. Fluent speech. Cachectic. Lungs are clear, normal rate and effort. Heart is regular, no murmur gallop or rub. Abdomen is soft, non distended. Extremities are free of edema. Objective Imaging CT scan - head: Radiologist's impression: No acute intracranial pathology. Labs 02/01/24 05:55 02/01/24 05:55 Labs: Laboratory Results - last 24 hr 01/31/24 02/01/24 13:50 05:55 WBC 5.9 RBC 3.62 L Hgb 11.4 L Hct 34.3 L MCV 94.9 MCH 31.5 MCHC 33.2 RDW 12.4 Plt Count 213 Neut % (Auto) 61.7 Lymph % (Auto) 27.8 [place] % (Auto) 7.8 Eos % (Auto) 2.0 Baso % (Auto) 0.7 Neut # (Auto) 3600 Lymph # (Auto) 1600 [place] # (Auto) 500 Eos # (Auto) 100 Baso # (Auto) 0 Sodium 136 L 139 Potassium 3.9 3.9 Chloride 110 H 111 H Carbon Dioxide 20 L 25 BUN 47 H 28 H Creatinine 1.64 H 0.99 Estimated GFR 39 L > 60 BUN/Creatinine Ratio 28.7 H 28.3 H Glucose 134 H 109 H Calcium 7.8 L 8.0 L PFSH Medical History Methamphetamine use Psoriasis ENCOUNTER FOR INSERTION OF INTRAUTERINE CONTRACEPTIVE DEVICE High risk HPV infection Surgical History History of cervical LEEP biopsy affecting care of mother, antepartum Family History Mother Diabetes mellitus Hyperkalemia Father Medical history unknown Grandfather Myocardial infarction Social History household members: significant other Smoking Status: Current every day smoker alcohol intake: current Discharge Assessment & Plan Assessment and Plan Assessment: 1. Severe acute kidney injury, present on admission and active. 2. Volume depletion, present on admission and active. 3. Possible urinary tract infection, present on admission and active. 4. Methamphetamine abuse, present on admission and active. 5. Anxiety, present on admission and active. Plan of Treatment: Stable for discharge home. Encouraged to stop lisinopril, increase amlodipine to 10 daily, close follow up, and hydrate. Discharge Plan Discharge Plan Patient Disposition: Home Provider Discharge Comment: Stable for discharge, renal function normalized. Discharge orders & Medications Prescriptions: Changed amlodipine 5 mg tablet 10 mg PO DAILY Qty: 30 2RF Discontinued lisinopril 20 mg tablet 20 mg PO DAILY Medication counseling provided by Pharmacist: No Follow up/Referrals: Doctor Guerra MD [Primary Care Provider] - Bayron Prado MD [Non-Staff] - Discharge Health Status Multidrug resistant organism: No MDRO Diet/Activity/Treatments Diet: Diet as Tolerated Diet comment: Drink a lot of fluids. Visit Report/Discharge Packet Instructions: DI for Dehydration -- Adult Stand Alone Forms: Patient Portal/API Discharge Data Primary Care Provider: Doctor Charlie Quality VTE Deep Vein Thrombosis/Pulmonary Embolism Present on Admission: No
== END 2024-02-01 11:10 | disposition home or self-care (01) | DRG 469 ==
LOC: ED 16:22 → AC 16:25 → ICU 16:48
PROVIDERS: Admitting Provider Hospitalist; Emergency Provider Emergency Medicine; Referring Provider Emergency Medicine; Visit Provider Hospitalist
DX: N17.9 Acute kidney failure, unspecified (principal); N39.0 Urinary tract infection, site not specified; E86.9 Volume depletion, unspecified; F15.10 Other stimulant abuse, uncomplicated; F41.9 Anxiety disorder, unspecified; I10 Essential (primary) hypertension; F17.290 Nicotine dependence, other tobacco product, uncomplicated
CPT/HCPCS: 36415; 51798; 70450; 80048; 80053; 80305; 81001; 82570; 83605; 83690; 84300; 84703; 85025; 87086; 87797; 96361; 96374; 99284; J2060; J7121

== ENCOUNTER 2024-02-12 11:08 | Emergency (ER) | payer OTHER, MEDICAID, SELFPAY ==
[2024-01-30 16:49] VITALS: BMI 16.0
[2024-02-12] VITALS (11 sets, daily range): BP systolic 105–127; BP diastolic 54–83; PULSE 77–106; RESP 20; TEMP 36.2; O2SAT 100; BMI 16.2
--- NOTE | 2024-02-12 11:25 | ED_ITS ---
HPI - General Adult General Chief complaint: Abdominal Pain Stated complaint: per pt low bp, kidney issues Time Seen by Provider: 02/12/24 11:23 Source: patient, RN notes reviewed and old records reviewed Mode of arrival: EMS Limitations: no limitations History of Present Illness HPI narrative: 43-year-old female history of hypertension, methamphetamine abuse recent acute kidney injury secondary to volume depletion admitted on 02/01/2024 with a creatinine of 5.66 that normalized to 0.99 range in 2 days with hospitalization and fluids who presents with complaint of abdominal pain which she describes as upper abdominal both sides in the front. No back or flank pain. Started shortly after having an apple fritter. Denies fevers. Did have nausea but no vomiting. States no major changes to bowel. Denies dysuria urgency or frequency. No vaginal bleeding or discharge. States he has had similar symptoms in the past. Patient states she is on amlodipine and lisinopril. Patient denies any prior abdominal surgeries. Does vape tobacco, does use alcohol, uses marijuana, intermittent methamphetamine use, last use was 2 days ago. Patient states symptoms are improved she defers anything for nausea or pain here in the department. Related Data Previous Rx's Medication Instructions Recorded amlodipine 10 mg tablet 10 mg PO DAILY 30 days #30 tabs 02/03/24 cephalexin 500 mg capsule 500 mg PO TID #15 caps 02/12/24 Allergies Allergy/AdvReac Type Severity Reaction Status Date / Time hydrocodone Allergy Verified 01/30/24 13:17 Review of Systems Review of Systems ROS Unobtainable: All systems reviewed & are unremarkable except as noted in HPI and below Patient History Medical History Methamphetamine use Psoriasis ENCOUNTER FOR INSERTION OF INTRAUTERINE CONTRACEPTIVE DEVICE High risk HPV infection Surgical History History of cervical LEEP biopsy affecting care of mother, antepartum Family History Mother Diabetes mellitus Hyperkalemia Father Medical history unknown Grandfather Myocardial infarction Social History household members: significant other Smoking Status: Current every day smoker alcohol intake: current Smoking Status: Current every day smoker tobacco type: vaping alcohol intake frequency: a few times a week Substance Use Type: marijuana and methamphetamine Exam Narrative Exam Narrative: GENERAL: Alert and oriented x three, female in mild distress HEENT: Head normocephalic, atraumatic, EOMI, pupils reactive, face symmetric, moist mucous membranes NECK: Supple, full range of motion CARDIOVASCULAR: Regular rate and rhythm without murmurs, rubs or gallops. RESPIRATORY: Breath sounds equal bilaterally, no wheezes rales or rhonchi. ABDOMEN: Soft, nontender. Normoactive bowel sounds all 4 quadrants. No guarding or rebound, rigidity, no mass, no pulsatile mass or bruit : No CVA tenderness EXTREMITIES: Normal range of motion, no clubbing or edema. Neurovascularly intact NEUROLOGICAL: Cranial nerves II through XII grossly intact. Moving all extremities SKIN: Warm, dry, no petechiae, no rashes or lesions. Initial Vital Signs Initial Vital Signs: Vital Signs Pulse Oximetry 100 02/12/24 11:20 Course Orders Ordered: Discontinued Medications Sodium Chloride (Normal Saline 0.9%) 1,000 mls @ 1,000 mls/hr IV BOLUS ONE Stop: 02/12/24 12:31 Last Infusion: 02/12/24 12:33 Dose: Infused Documented By: Admin: 02/12/24 11:36 Dose: 1,000 mls/hr Documented By: Ceftriaxone Sodium 2,000 mg/ (Sodium Chloride) 100 mls @ 200 mls/hr IV NOW ONE Stop: 02/12/24 12:59 Last Infusion: 02/12/24 13:43 Dose: Infused Documented By: Admin: 02/12/24 13:14 Dose: 200 mls/hr Documented By: Ketorolac Tromethamine (Ketorolac 30 Mg/Ml Vial) 15 mg IV NOW ONE Stop: 02/12/24 12:01 Last Admin: 02/12/24 12:05 Dose: 15 mg Documented By: Vital Signs Vital signs: Vital Signs - 8 hr 02/12/24 11:20 02/12/24 11:21 02/12/24 11:21 Temperature Pulse Rate 81 Respiratory Rate Blood Pressure 105/64 Pulse Oximetry 100 100 Oxygen Delivery Method 02/12/24 11:25 02/12/24 12:00 02/12/24 12:00 Temperature 97.1 F L Pulse Rate 106 H 77 Respiratory Rate 20 Blood Pressure 120/54 L 107/77 Pulse Oximetry 100 100 Oxygen Delivery Method Room Air 02/12/24 12:30 02/12/24 12:30 02/12/24 12:37 Temperature Pulse Rate 97 H 92 H Respiratory Rate Blood Pressure 106/78 Pulse Oximetry 100 100 Oxygen Delivery Method 02/12/24 12:37 02/12/24 13:11 02/12/24 13:12 Temperature Pulse Rate 88 Respiratory Rate Blood Pressure 108/78 121/83 Pulse Oximetry 100 Oxygen Delivery Method 02/12/24 13:12 02/12/24 13:30 02/12/24 13:30 Temperature Pulse Rate 91 H 90 Respiratory Rate Blood Pressure 124/82 Pulse Oximetry 100 100 Oxygen Delivery Method Room Air 02/12/24 14:00 02/12/24 14:00 Temperature Pulse Rate 87 Respiratory Rate Blood Pressure 127/83 Pulse Oximetry Oxygen Delivery Method Medical Decision Making Lab Data 02/12/24 11:25 02/12/24 11:25 Labs: Lab Results 02/12/24 02/12/24 Range/Units 11:25 12:38 WBC 9.4 (4.5-11.0) X10^3/uL RBC 3.79 L (4.0-5.2) X10^6/uL Hgb 12.1 (12.0-16.0) g/dL Hct 35.4 L (36-46) % MCV 93.4 (80-100) fL MCH 31.9 (26-34) PG MCHC 34.1 (30-36) % RDW 12.7 (11.6-14.8) % Plt Count 407 H (150-400) X10^3/uL Neut % (Auto) 76.1 H (50-75) % Lymph % (Auto) 14.0 L (25-40) % [place]ary % (Auto) 9.0 (3-14) % Eos % (Auto) 0.5 L (2-4) % Baso % (Auto) 0.4 (0-2) % Neut # (Auto) 7200 H (7460-8242) /uL Lymph # (Auto) 1300 (6911-3630) /uL [place]ary # (Auto) 900 (0-900) /uL Eos # (Auto) 0 (0-450) /uL Baso # (Auto) 0 (0-100) /uL Sodium 136 L (137-145) mmol/L Potassium 3.6 (3.4-5.1) mmol/L Chloride 103 (98-107) mmol/L Carbon Dioxide 20 L (22-32) mmol/L BUN 39 H (7-17) mg/dL Creatinine 1.67 H (0.52-1.04) mg/dL Estimated GFR 39 L (>60) mL/min BUN/Creatinine Ratio 23.4 H (6-22) Glucose 100 (70-100) mg/dL Calcium 9.0 (8.4-10.2) mg/dL Total Bilirubin 0.8 (0.2-1.3) mg/dL AST 48 H (14-36) IU/L ALT 36 H (<35) IU/L Alkaline Phosphatase 96 (38-126) U/L Total Protein 7.7 (6.3-8.2) g/dL Albumin 4.7 (3.5-5.0) g/dL Globulin 3.0 (1.7-4.1) g/dL Albumin/Globulin Ratio 1.6 (1.0-2.8) Lipase 87 (23-300) U/L Urine RBC None seen (0-5/HPF) Urine WBC 5-10/hpf H (0-5/HPF) Ur Squamous Epith Cells 5-10 /hpf H (0-5/HPF) Urine Bacteria Moderate (10-30) H (None) Ur Culture Indicated? Specimen cultured Vol Urine Centrifuged 10ml (spun) Point of Care Testing Test Results Negative Urine Dip Bedside Urine Glucose Negative Bedside Urine Bilirubin + 1 Bedside Urine Ketone +/- 5 Urine Specific [place] 1.025 Bedside Urine pH 6.0 Bedside Urine Protein + 30 Bedside Urine Urobilinogen - Negative Bedside Urine Nitrite - Negative Bedside Urine Leukocytes +++ 500 Esterase Point of care testing: Point of Care Testing Test Results Negative Urine Dip Bedside Urine Glucose Negative Bedside Urine Bilirubin + 1 Bedside Urine Ketone +/- 5 Urine Specific [place] 1.025 Bedside Urine pH 6.0 Bedside Urine Protein + 30 Bedside Urine Urobilinogen - Negative Bedside Urine Nitrite - Negative Bedside Urine Leukocytes +++ 500 Esterase Imaging Data US - abdomen: Radiologist's Impression: Nahed Toribio??43??F??1980 ? Allergy/Adv: hydrocodone Close Abdomen Ultrasound (Signed) Long Nicole - 02/12/24 Telemetry Strips 01/30/24 Telemetry Strips 01/30/[address] (Signed) RaphaelAd - 01/30/24 Chest X-Ray (Signed) Oscar Padilla - 01/07/23 Chest X-Ray (Signed) Sunil Orr - 12/31/22 Forearm X-Ray (Signed) Chalo Aviles - 02/08/22 Brain MRI (Signed) Bart Moyence - 11/18/21 Telemetry Strips 11/17/21 Head/Neck CTA (Signed) Ad Lim - 11/17/[address] (Signed) Telma Sotomayor - 11/17/21 Chest X-Ray (Signed) Telma Sotomayor - 11/17/21 Lumbar Spine X-Ray (Signed) DaisyMak - 11/16/21 Hip X-Ray (Signed) Telma Sotomayor - 11/16/21 [place] [address] Ultrasound Report Signed Patient: Nahed Toribio MR#: [id number] : 1980 Acct:[id number] Age/Sex: 43 / F Date of Service: 02/12/24 Loc: ED Accession Number: [id number] Procedure: US abdomen complete Ordering Provider: Sarah Arriaza D.O. PROCEDURE: US ABDOMEN COMPLETE INDICATIONS: upper abd pain, hx kidney problems, started after apple frit TECHNIQUE: Real-time scanning was performed of the abdominal and retroperitoneal organs, with image documentation. COMPARISON: [facility], CT, CT KUB, 12/19/2020, 20:08. FINDINGS: Liver: Liver is normal in size and homogeneous in echotexture. Gallbladder: Sonolucent without evidence cholelithiasis, gallbladder wall thickening or pericholecystic fluid. No sonographic Santizo sign. Biliary ducts: Intrahepatic bile ducts are non-dilated. Extrahepatic bile duct caliber measures 3.2 mm. Normal is 6-7 mm or less in diameter, or 10 mm or less post-cholecystectomy. Pancreas: Visualized portions of the pancreas are sonographically normal. Spleen: Spleen is normal in size and homogeneous in echotexture. Kidneys: Right kidney unremarkable measuring 11.3 cm. No hydronephrosis or shadowing calculi. On the left, there has been cystic replacement of the left renal parenchyma. Cystic structure measures 11.9 x 6.6 x 8.4 cm. Aorta: Visualized aorta is normal in caliber at less than 3 cm. Iliacs: Proximal common iliac arteries are normal in caliber at less than 2.5 cm. IVC: Intrahepatic inferior vena cava is patent. Miscellaneous: No free abdominal fluid. IMPRESSION: Cystic replacement of the left kidney may related to chronic obstruction. Consider follow-up CT abdomen and pelvis with contrast Approved by: Long Nicole M.D. on 02/12/2024 at 11:44 CT scan - abdomen/pelvis: Radiologist's Impression: Nahed Toribio??43??F??1980 ? Allergy/Adv: hydrocodone Close Abdomen/Pelvis CT (Signed) Long Nicole - 02/12/24 Abdomen Ultrasound (Signed) Long Nicole - 02/12/24 Telemetry Strips 01/30/24 Telemetry Strips 01/30/[address] (Signed) Ad Lim - 01/30/24 Chest X-Ray (Signed) Oscar Padilla - 01/07/23 Chest X-Ray (Signed) Sunil Orr - 12/31/22 Forearm X-Ray (Signed) Chalo Aviles - 02/08/22 Brain MRI (Signed) An Moy - 11/18/21 Telemetry Strips 11/17/21 Head/Neck CTA (Signed) Ad Lim - 11/17/[address] (Signed) Telma Sotomayor - 11/17/21 Chest X-Ray (Signed) Telma Sotomayor - 11/17/21 Lumbar Spine X-Ray (Signed) Mak Villa - 11/16/21 Hip X-Ray (Signed) Telma Sotomayor - 11/16/21 Launch?[address] [address] [address] Scan Report Signed Patient: Nahed Toribio MR#: [id number] : 1980 Acct:[id number] Age/Sex: 43 / F Date of Service: 02/12/24 Loc: ED Accession Number: [id number] Procedure: CT abdomen pelvis w con Ordering Provider: Sarah Arriaza D.O. PROCEDURE: CT ABDOMEN PELVIS W CON INDICATIONS: left cystic kidney, +uti, abd pain, no flank pain TECHNIQUE: After the administration of intravenous contrast, axial sections acquired from the lung bases to the pubic symphysis. Coronal and sagittal reformats were performed. For radiation dose reduction, the following was used: automated exposure control, adjustment of mA and/or kV according to patient size. COMPARISON: [facility], CT, CT KUB, 12/19/2020, 20:08. [facility], US, US ABDOMEN COMPLETE, 02/12/2024, 11:42. FINDINGS: Lower thorax: The lung bases are clear. Heart size normal. No hiatal hernia. Liver: Normal in size and attenuation. No contour deformity present. Biliary system: No calcified cholelithiasis or pericholecystic inflammation. No intra or extrahepatic bile duct dilatation. Pancreas: Unremarkable without mass or inflammation evident. Spleen: Normal in size and density. Adrenals: Normal morphology and density. Reproductive system: Unremarkable as visualized. Urinary system: Right kidney unremarkable. Left kidney shows severe hydronephrosis with thin mantle of remaining renal parenchyma. No hydroureter or calcified obstructing lesion. Urinary bladder unremarkable Gastrointestinal system: The bowel is unremarkable without evidence of bowel obstruction or inflammation. The stomach appears unremarkable. Appendix: No findings to suggest acute appendicitis. Peritoneal spaces: No mesenteric or retroperitoneal adenopathy. No free air. No free fluid. Vasculature: The IVC, aorta and iliac vasculature are unremarkable. Abdominal wall: Abdominal wall intact without evidence of ventral or inguinal hernias. Musculoskeletal: L3 bilateral pars defects and grade 2 anterior spondylolisthesis at L3-4. 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 No calcified lesion present. Grade 2 isthmic spondylolisthesis at L3-4 Approved by: Long Nicole M.D. on 02/12/2024 at 13:25 MDM Narrative Medical decision making narrative: 43-year-old female presents with complaint of abdominal discomfort more anteriorly upper abdomen. Has a little bit tender mid and right upper quadrant. Patient slightly tachycardic, afebrile otherwise appropriate blood pressure now oxygenation. Patient notes symptoms started after eating an apple fritter. She has had some symptoms similar in the past. She does not a history significant for hypertension and intermittent methamphetamine use recent hospitalization 01/30/2024 for acute kidney injury with a creatinine of 5.6 although it did not normalize to 0.99 on February 01, 2024. Labs labs show white count of 9.4 hemoglobin of 12 platelets of 407, creatinine is 1.67 trending upwards from prior 0.99 but much improved from prior 5.5 mid January, BUN 39 CO2 is 20, sodium is 136 glucose is 100, AST is 48 with a ALT of 36, lipase is negative. Urine is negative, point of care urine shows positive leuks, +protein and ketones Abdominal ultrasound shows no acute changes to gallbladder and biliary ducts, right kidney is unremarkable left kidney has been cystic replacement of the left renal parenchyma with structure measuring 11.9 x 6.6 x 8.4 cm. Plan for follow up CT abdomen pelvis with contrast for further evaluation. CT shows chronic severe left hydro resulting in only thin mantle left renal tissue probable sequela of chronic UPJ obstruction no calcified lesion present, no evidence of bowel obstruction or inflammation, urinary bladder is unremarkable. Grade 2 isthmic spondylolisthesis at L3-4. Patient was covered for infection. Patient's creatinine is slightly bumped up from priors several days ago but still overall fairly appropriate. Page out to Dr. Hickey with Urology. Patient's very much would like to leave today. Spoke with urology, Dr. Hickey recommends follow up with Nephrology as well as Urology. Chronic issue does not require intervention to day would recommend decreasing methamphetamine use as this will cause trauma from intermittent hypertension to the kidneys. We will treat for possible UTI. Patient is quite adamant that she wanted to leave she did wait for Urology to call back, reviewed all of her findings need for follow-up need to stop using methamphetamines offered resources today. Patient did meet with INTERVENTIONAL TECHNOLOGIST. Discussed return precautions and need for follow-up. Discharge Plan Departure Patient Disposition: Home Clinical Impression: Hydronephrosis of left kidney, UTI (urinary tract infection) Instructions: What Can I Do About Kidney Disease? Activity Restrictions/Additional Instructions: Your imaging shows that your left kidney has a what appears to be chronic severe hydronephrosis. This is probably part of the reason why you had issues with your kidney function recently. It is important that you protect the function of your right kidney. Your urine also shows signs of potential infection. You need to see a urologist and have your renal function checked regularly. Please call to follow up with Urology. Call Tuesday for an appointment. You should also follow up with the ict educator, call Tuesday to set up a follow up appointment. Contact is included below. The most local nephrology is at [facility]. In his recommended that you avoid NSAIDs such as ibuprofen, Aleve or naproxen in regular or large amounts. Take antibiotics until completed. Your urine does show potential infection. Please take antibiotics until completed. Prescription was sent to Prescriptions: New cephalexin 500 mg capsule 500 mg PO TID Qty: 15 0RF No Action amlodipine 10 mg tablet 10 mg PO DAILY 30 Days Qty: 30 0RF Referrals: Blane Lozada MD [Non-Staff] - Miscellaneous,MD Radha [Primary Care Provider] - Louis Hickey MD [Physician] - Stand Alone Forms: Patient Portal/API
[2024-02-12 11:36] LABS: Add Manual Diff / Slide Review NO; Basophils Absolute Auto 0 /uL (0-100); Basophils Percent Auto 0.4 % (0-2); Eosinophils Absolute Auto 0 /uL (0-450); Eosinophils Percent Auto 0.5 % (2-4); Hematocrit 35.4 % (36-46); Hemoglobin 12.1 g/dL (12.0-16.0); Lymphocytes Absolute Auto 1300 /uL (1100-4500); Mean Corpuscular HGB Conc 34.1 % (30-36); Mean Corpuscular Hemoglobin 31.9 PG (26-34); Mean Corpuscular Volume 93.4 fL (80-100); Monocytes Absolute Auto 900 /uL (0-900); Neutrophils Absolute Auto 7200 /uL (1500-7000); Neutrophils Percent Auto 76.1 % (50-75); Platelet Count 407 X10^3/uL (150-400); Red Blood Cell Count 3.79 X10^6/uL (4.0-5.2); Red Cell Distribution Width 12.7 % (11.6-14.8); White Blood Cell Count 9.4 X10^3/uL (4.5-11.0)
[2024-02-12] MEDS: SODIUM CHLORIDE 0.9% 1,000 ML 1000 ML IV (11:36)
[2024-02-12 11:49] LABS: Alanine Aminotransferase 36 IU/L (<35); Albumin 4.7 g/dL (3.5-5.0); Albumin Globulin Ratio 1.6 (1.0-2.8); Alkaline Phosphatase 96 U/L (38-126); Aspartate Aminotransferase 48 IU/L (14-36); BUN Creatinine Ratio 23.4 (6-22); Bilirubin Total 0.8 mg/dL (0.2-1.3); Blood Urea Nitrogen 39 mg/dL (7-17); Carbon Dioxide 20 mmol/L (22-32); Chloride 103 mmol/L (98-107); Estimated Glomerular Filt Rate 39 mL/min (>60); Glucose 100 mg/dL (70-100); HEMOLYSIS < 15 (0-50); Lipase 87 U/L (23-300); Potassium 3.6 mmol/L (3.4-5.1); Sodium 136 mmol/L (137-145); Total Protein 7.7 g/dL (6.3-8.2)
[2024-02-12] MEDS: KETOROLAC 30 MG/ML VIAL 15 MG IV (12:05)
--- NOTE | 2024-02-12 12:53 | DI.CT.S_ITS ---
PROCEDURE: CT ABDOMEN PELVIS W CON INDICATIONS: left cystic kidney, +uti, abd pain, no flank pain TECHNIQUE: After the administration of intravenous contrast, axial sections acquired from the lung bases to the pubic symphysis. Coronal and sagittal reformats were performed. For radiation dose reduction, the following was used: automated exposure control, adjustment of mA and/or kV according to patient size. COMPARISON: [facility], CT, CT KUB, 12/19/2020, 20:08. , US, US ABDOMEN COMPLETE, 02/12/2024, 11:42. FINDINGS: Lower thorax: The lung bases are clear. Heart size normal. No hiatal hernia. Liver: Normal in size and attenuation. No contour deformity present. Biliary system: No calcified cholelithiasis or pericholecystic inflammation. No intra or extrahepatic bile duct dilatation. Pancreas: Unremarkable without mass or inflammation evident. Spleen: Normal in size and density. Adrenals: Normal morphology and density. Reproductive system: Unremarkable as visualized. Urinary system: Right kidney unremarkable. Left kidney shows severe hydronephrosis with thin mantle of remaining renal parenchyma. No hydroureter or calcified obstructing lesion. Urinary bladder unremarkable Gastrointestinal system: The bowel is unremarkable without evidence of bowel obstruction or inflammation. The stomach appears unremarkable. Appendix: No findings to suggest acute appendicitis. Peritoneal spaces: No mesenteric or retroperitoneal adenopathy. No free air. No free fluid. Vasculature: The IVC, aorta and iliac vasculature are unremarkable. Abdominal wall: Abdominal wall intact without evidence of ventral or inguinal hernias. Musculoskeletal: L3 bilateral pars defects and grade 2 anterior spondylolisthesis at L3-4. 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 No calcified lesion present. Grade 2 isthmic spondylolisthesis at L3-4 Approved by: Long Nicole M.D. on 02/12/2024 at 13:25
[2024-02-12 13:01] LABS: Bacteria Urine Moderate (10-30); RBC Urine None Seen (0-5/HPF); Squamous Epithelial Cell Urine 5-10 /HPF (0-5/HPF); Urine Volume 10mL (spun); WBC Urine 5-10/HPF (0-5/HPF)
[2024-02-12 13:02] LABS: Culture Indicated Urine Specimen Cultured
[2024-02-12] MEDS: cefTRIAXone 2,000 MG in SODIUM CHLORIDE 0.9% 100 ML 200 MG IV (13:14)
--- NOTE | 2024-02-12 14:26 | CM.SWNOTE ---
ED PRINTER MAINTAINER Note: Patient is a 43yo female, currently houseless, presents to the ED with abdominal pain. PRINTER MAINTAINER was consulted due to patient reporting housing insecurity and request for more resources for housing. Patient has a primary care provider at the [facility] and insurance is [employer]. ED PRINTER MAINTAINER entered room, introduced self and role. Pt was found lying in bed, alert and oriented, pleasant and cooperative with assessment. Per pt, the past two nights, pt has been on the street but was able to stay with a friend the week prior in [place]. Pt confirmed support with pt's sister, Aundrea, who accompanied her at her previous admission. Pt explained she is hopeful to establish in a housing program in [place] if available. ED PRINTER MAINTAINER educated pt on resources in [place] to include [employer] and [facility], provided housing resources list for pt. ED PRINTER MAINTAINER discussed pt's substance use, pt reports methamphetamine use in the last two days. Pt was tearful when discussing this, was not able to answer if she wants to address this at this time. Pt was appreciative of handout for [facility], denied a referral at this time. Pt stated she might reach out to them for psychiatric medication management. Plan: Anticipating pt to discharge back to community, pt explains she has to take care of things in [place] tomorrow so I will probably stay around here. Awaiting medical clearance from provider. ELGIN Wren
== END 2024-02-12 15:07 | disposition home or self-care (01) ==
PROVIDERS: Emergency Provider Emergency Medicine
DX: N13.30 Unspecified hydronephrosis (principal); N39.0 Urinary tract infection, site not specified; R00.0 Tachycardia, unspecified
CPT/HCPCS: 36415; 74177; 76700; 80053; 81003; 81015; 81025; 83690; 85025; 87086; 96361; 96365; 96375; 99284; J0696; J1885; Q9967